=== PATIENT | female | born 1940 | race Caucasian/White ===

== ENCOUNTER → 2017-01-13 | Outpatient (CLI) | payer OTHER ==
[~2017-01-13] MED LIST: ASCO1CAP3 PO; CALC600T33 PO; CHOL1000 PO; DOCU100C PO; FSM70 PO; GABA-113 PO; GLUCTAB7 PO; HYDC25 PO; MULT-614 PO; POLY335019 PO; TYLER650 PO
--- NOTE | 2017-01-13 13:39 | MAMMOGRAPHY REPORT ---
BILATERAL DIGITAL SCREENING MAMMOGRAM TOMOSYNTHESIS WITH CAD: 01/13/2017 CLINICAL HISTORY: Routine screening. Patient has no complaints. TECHNIQUE: Breast tomosynthesis in addition to standard 2D mammography was performed. Current study was also evaluated with a Computer Aided Detection (CAD) system. COMPARISON: Comparison is made to exams dated: 01/13/2016 mammogram, 01/10/2015 mammogram, 11/10/2013 m ammogram, 11/09/2012 mammogram, 11/09/2011 mammogram, and 11/05/2010 mammogram - [facility] er. BREAST COMPOSITION: The tissue of both breasts is heterogeneously dense, which may obscure small mas ses. FINDINGS: No suspicious masses, calcifications, or areas of architectural distortion are noted in ei ther breast. There has been no significant interval change compared to prior exams. Scattered bilater al benign-appearing calcifications are not significantly changed. A pacemaker obscures portions of t he left axilla. IMPRESSION: ACR BI-RADS CATEGORY 2: BENIGN There is no mammographic evidence of malignancy. A 1 year screening mammogram is recommended. The pa tient will receive written notification of the results. Approximately 10% of breast cancers are not detected with mammography. A negative mammographic report should not delay biopsy if a clinically suggestive mass is present. Denise Talbot M.D. /:01/13/2017 10:11:56 Extractor Loader And Unloader: Cee Staples RT(R)(M), [facility] letter sent: Normal 1/2 BI-RADS Code: ACR BI-RADS Category 2: Benign
== END | disposition home or self-care (01) ==
LOC: C.MAMM 09:35
PROVIDERS: ATTEND Obstetrics & Gynecology
DX: Z12.31 Encounter for screening mammogram for malignant neoplasm of breast (principal)

== ENCOUNTER 2023-08-10 07:31 | Observation (INO) ==
--- NOTE | 2023-07-20 11:41 | PAT Medication Instructions ---
Medication Instructions Date of Service July 20, 2023 Home Medications Medication Instructions Recorded hydrochlorothiazide 25 mg tablet 25 mg PO QAM #90 tabs 04/18/19 acetaminophen 325 mg tablet 325 mg PO UD PRN ascorbic acid (vitamin C) 500 mg tablet (Vitamin C) 500 mg PO QAM calcium carbonate 600 mg-vitamin D3 5 mcg (200 unit) capsule (Calcium 600 + D(3)) 1 tab PO QAM cholecalciferol (vitamin D3) 25 mcg (1,000 unit) capsule (Vitamin D3) 1,000 unit PO QPM docusate sodium 250 mg capsule (Stool Softener) 250 mg PO BID multivitamin (Multiple Vitamins tablet) 1 tab PO QAM polyethylene glycol 3350 17 gram/dose oral powder (Miralax) 1 dose PO QAM hydrochlorothiazide 25 mg tablet 25 mg PO QAM gabapentin 300 mg capsule (Neurontin) 300 mg PO QPM glucosamine sulf dipot chlr,msm,chond 550 mg-C 30 mg-richardson 1 mg capsule (Glucosamine Chondroitin) 1 cap PO BID latanoprost 0.005 % eye drops 1 drp ophthalmic (eye) PM peg 400-propylene glycol (PF) 0.4 %-0.3 % eye drops in a dropperette (Systane (PF)) 1 drp ophthalmic (eye) QID vit C 250 mg-vit E 90 mg-zinc 40 mg-copper 1 [id number] capsule (PreserVision AREDS-2) 1 tab PO BID Continue as directed acetaminophen 325 mg tablet 325 mg PO UD PRN(if needed) STOP taking 2 weeks before surgery (or as soon as possible if surgery is within 2 weeks) glucosamine sulf dipot chlr,msm,chond 550 mg-C 30 mg-richardson 1 mg capsule (Glucosamine Chondroitin) 1 cap PO BID vit C 250 mg-vit E 90 mg-zinc 40 mg-copper 1 [id number] capsule (PreserVision AREDS-2) 1 tab PO BID DO NOT take the morning of surgery ascorbic acid (vitamin C) 500 mg tablet (Vitamin C) 500 mg PO QAM calcium carbonate 600 mg-vitamin D3 5 mcg (200 unit) capsule (Calcium 600 + D(3)) 1 tab PO QAM docusate sodium 250 mg capsule (Stool Softener) 250 mg PO BID multivitamin (Multiple Vitamins tablet) 1 tab PO QAM polyethylene glycol 3350 17 gram/dose oral powder (Miralax) 1 dose PO QAM hydrochlorothiazide 25 mg tablet 25 mg PO QAM Take morning of surgery With a small sip of water, OTHERWISE NOTHING TO EAT OR DRINK AFTER MIDNIGHT: peg 400-propylene glycol (PF) 0.4 %-0.3 % eye drops in a dropperette (Systane (PF)) 1 drp ophthalmic (eye) QID Take evening before surgery cholecalciferol (vitamin D3) 25 mcg (1,000 unit) capsule (Vitamin D3) 1,000 unit PO QPM docusate sodium 250 mg capsule (Stool Softener) 250 mg PO BID gabapentin 300 mg capsule (Neurontin) 300 mg PO QPM latanoprost 0.005 % eye drops 1 drp ophthalmic (eye) PM peg 400-propylene glycol (PF) 0.4 %-0.3 % eye drops in a dropperette (Systane (PF)) 1 drp ophthalmic (eye) QID Other Notes If you have any questions please call us at [phone] or [phone] or [phone] or [phone]
--- NOTE | 2023-07-21 15:00 | Anesthesiology Consultation ---
Date of Service July 21, 2023 Assessment & Plan (1) Encounter for pre-operative examination: - Infectious disease screening: Per assessment on 07/21/23: No known infectious disease contacts or current infectious disease symptoms. No noted recent Covid positive test result. - Outpatient joint assessment: Pt currently scheduled for inpatient pathway. If surgeon requests review for outpatient joint pathway, patient is not recommended candidate for outpatient joint program from anesthesia standpoint based on available information. - Cardiology visit (07/19/23): "The patient is stable from cardiovascular standpoint. She demonstrates excellent control of her blood pressure at home. Cholesterol values are also acceptable. She demonstrates excellent functional status without cardiac symptoms. Therefore, she is acceptable cardiac risk to undergo knee replacement surgery without further testing." Chart Review Chart Review: Acceptable Risk for Surgery and Patient seen in Pre Admission Testing Teaching & Discussion Pre-Anesthesia Teaching/Discussion Notes: Instructed NPO after midnight before surgery,except medications with 15 cc of water. Medication instructions provided according to the PAT guidelines. History Surgery Operation Date: 08/10/23 12:20 Proposed Procedures p Right Total Knee Arthroplasty - Elvin Jeison Stephen MD Height/Weight Height: 5 ft 1 in Weight: 57.2 kg Allergies Allergy/AdvReac Type Severity Reaction Status Date / Time meloxicam Allergy Intermediate Swelling- Verified 07/21/23 14:58 stomach Medications Home Medications Medication Instructions Recorded Confirmed Last Taken acetaminophen 325 mg tablet 325 mg PO UD PRN Pain 01/11/18 07/20/23 Unknown ascorbic acid (vitamin C) 500 mg 500 mg PO QAM 01/11/18 07/20/23 04/26/18 tablet (Vitamin C) calcium carbonate 600 mg-vitamin 1 tab PO QAM 01/11/18 07/20/23 04/26/18 D3 5 mcg (200 unit) capsule (Calcium 600 + D(3)) cholecalciferol (vitamin D3) 25 1,000 unit PO QPM 01/11/18 07/20/23 04/25/18 mcg (1,000 unit) capsule (Vitamin D3) docusate sodium 250 mg capsule 250 mg PO BID 01/11/18 07/20/23 04/26/18 (Stool Softener) multivitamin (Multiple Vitamins 1 tab PO QAM 01/11/18 07/20/23 04/26/18 tablet) polyethylene glycol 3350 17 1 dose PO QAM 01/11/18 07/20/23 04/26/18 gram/dose oral powder (Miralax) hydrochlorothiazide 25 mg tablet 25 mg PO QAM #90 tabs 04/18/19 07/20/23 Unknown gabapentin 300 mg capsule 300 mg PO QPM 08/15/20 07/20/23 Unknown (Neurontin) glucosamine sulf dipot 1 cap PO BID 07/20/23 07/20/23 Unknown chlr,msm,chond 550 mg-C 30 mg-richardson 1 mg capsule (Glucosamine Chondroitin) latanoprost 0.005 % eye drops 1 drp ophthalmic (eye) PM 07/20/23 07/20/23 Unknown peg 400-propylene glycol (PF) 0.4 1 drp ophthalmic (eye) QID 07/20/23 07/20/23 Unknown %-0.3 % eye drops in a dropperette (Systane (PF)) vit C 250 mg-vit E 90 mg-zinc 40 1 tab PO BID 07/20/23 07/20/23 Unknown mg-copper 1 [id number] capsule (PreserVision AREDS-2) Past Medical History Medical History Glaucoma of both eyes History of COVID-19 04/2023- mild symptoms, resolved Hypertension Osteoarthritis Pacemaker Sick sinus syndrome Dual chamber implanted 2005, replaced [address] Irizarry Exercise / Class Metabolic Activity III < 4 Walking/Shop/Light housework Past Family History Family History Other No family history of adverse response to anesthesia Past Surgical History Surgical History History of ear surgery left ear History of lumbar fusion History of permanent cardiac pacemaker placement Implanted 2005 [employer], replaced 2014 History of right cataract extraction History of right inguinal hernia repair History of tooth extraction Hx laparoscopic cholecystectomy Hx of colonoscopy Hx of hysterectomy Past Anesthesia History No Hx of Anesthesia Complications and No Family Hx of Anesthesia Complications History of PONV No Hx of PONV and No Hx of Motion Sickness Social History Smoking Status: Never smoker Do You Dip or Chew Tobacco: No Hx Alcohol Use: No Hx Substance Use: No substance use type: does not use Review of Systems Patient denies chest pain, shortness of breath, fever, chills, cough, wheezing, palpitations. Physical Exam Vital Signs BP 146/83 P 74 TEMP 98.0 SP02 95%RA RESP 18 Physical Full cervical extension range of motion. Full TMJ range of motion. TMD 3 finger breaths Mallampati Score 1 Dentition: full upper, partial lower Lungs: clear throughout to auscultation Cardiac: regular rate and rhythm, no murmurs noted Spine: normal Carotid arteries: negative bruit Extremities: no LE edema Lab Results Anesthesia Preop Results Results Anesthesia Widget: WBC 5.43 K/ul (4.8-10.8) 07/21/23 Hgb 13.6 g/dl (12.0-16.0) 07/21/23 Hct 40.5 % (37.0-47.0) 07/21/23 Plt 195 K/uL (130-400) 07/21/23 Na 135 mmol/L (136-145) L 07/21/23 K 4.0 mmol/L (3.5-5.1) 07/21/23 Cl 97 mmol/L (98-107) L 07/21/23 CO2 31 mmol/L (21-32) 07/21/23 BUN 26 mg/dl (6-23) H 07/21/23 Creat 0.76 mg/dl (0.6-1.2) 07/21/23 Glucose Level 95 mg/dl (70-99(Fasting)) 07/21/23 PT 10.5 Seconds (9.0-12.0) 07/21/23 PTT 28 Seconds (21-31) 07/21/23 INR 1.0 (0.9-1.1) 07/21/23 Urine Color Yellow 07/21/23 Urine Appearance Clear (Clear) 07/21/23 Urine pH 5.5 (4.5-7.5) 07/21/23 Urine Specific Jackson 1.016 (1.000-1.030) 07/21/23 Urine Protein Negative (Negative) 07/21/23 Urine Glucose (UA) Negative (Negative) 07/21/23 Urine Ketones Negative (Negative) 07/21/23 Urine Blood Negative (Negative) 07/21/23 Urine Nitrite Negative (Negative) 07/21/23 Urine Bilirubin Negative (Negative) 07/21/23 Urine Urobilinogen Negative (Negative) 07/21/23 Urine Leukocyte Esterase Negative (Negative) 07/21/23 Blood Type B Positive 07/21/23 Antibody Screen NEGATIVE 07/21/23 Testing Electrocardiogram Date: 07/21/23 SR with PACs at 69bpm. "Otherwise normal ECG" Chest X-Ray Date: 07/21/23 FINDINGS: Postoperative findings within the spine, cholecystectomy clips and a left subclavian pacer are incidentally noted. There is a moderate sized hiatal hernia. Cardiac size is normal. Mediastinal contours are stable. There is no pneumothorax or pleural effusion. There is no consolidation or evidence for pulmonary edema. IMPRESSION: No acute cardiopulmonary findings. No change in appearance of the chest. Other Testing Pacer check Date: 04/23/23 AP 38%. [employer] < 0.1%. Battery longevity 6 years. More AAIR <=> DDDR.
[~2023-08-10 07:31] MED LIST changes: -ASCO1CAP3 PO; +BUPIVACAINE 0.5 % 5 MG/1 ML PF 10ML VIAL ONE; -CALC600T33 PO; -CHOL1000 PO; -DOCU100C PO; -FSM70 PO; -GABA-113 PO; -GLUCTAB7 PO; -HYDC25 PO; -MULT-614 PO; -POLY335019 PO; +ROPIVACAINE 0.5% 5 MG/ML 30 ML VIAL ONE; -TYLER650 PO
[2023-08-10] MEDS ORDERED: PROPOFOL IV EMULSION 10 MG/ML 20 ML VIAL IV ONE (07:47)
[2023-08-10] MEDS ORDERED: fentaNYL citrate PF 100 MCG/2 ML VIAL ONE (07:47)
[2023-08-10] MEDS: ACETAMINOPHEN 500 MG TAB PO SCH ×2 (07:59→15:18)
[2023-08-10] MEDS: Scopolamine 1 MG TDSY TD SCH (08:00)
[2023-08-10] MEDS: CeleBREX 200 MG CAP PO SCH (08:00)
[2023-08-10] MEDS: LR 60ML/HR IV SCH (08:00)
[2023-08-10] MEDS: LR 500ML BOLUS, THEN 15ML/HR IV SCH (08:05)
[2023-08-10] MEDS ORDERED: DexMEDEtomidine HCL IV 100 MCG/ML VIAL IV ONE (08:20)
--- NOTE | 2023-08-10 08:33 | History & Physical Bridge Note ---
Date of Service August 10, 2023 History & Physical Bridge Note I have examined the patient, reviewed the History & Physical and in the interval since the performance of the History & Physical I have noted the following changes of clinical significance: no changes noted
[2023-08-10] MEDS ORDERED: ATROPINE SULFATE 0.1 MG/ML 10ML SYR IV PRN (08:35)
[2023-08-10] MEDS ORDERED: ONDANSETRON INJ 2 MG/ML 2 ML VIAL IV PRN ×2 (08:35→13:46)
[2023-08-10] MEDS ORDERED: fentaNYL citrate PF 100 MCG/2 ML VIAL IV PRN (08:35)
[2023-08-10] MEDS ORDERED: ePHEDrine sulfate 50 MG/ML AMP IV PRN (08:35)
[2023-08-10] MEDS: TRANEXAMIC ACID 1,000 MG **IV Pre-op IV SCH (08:40)
[2023-08-10] MEDS: ceFAZolin 2000MG 2,000 MG/15 ML SYR IV SCH (09:53)
[2023-08-10] MEDS: ROPIV 0.5% 246mg, Ketorolac 30mg, EPINEPHrine 0.5mg in NSS INFIL SCH (09:54)
[2023-08-10] MEDS: ORTHO JOINT ANESTHETIC ONE (09:55)
[2023-08-10] MEDS: TRANEXAMIC ACID 1,000 MG **IV Intra-op IV SCH (10:45)
--- NOTE | 2023-08-10 11:11 | Operative Report ---
Post Operative Report Pre & Post Diagnosis Operation Date: 08/10/23 09:20 Pre-Op Diagnosis: Osteoarthritis Knee Right Post-Op Diagnosis: Osteoarthritis Knee Right I identified the patient and participated in the time-out.: Yes Procedure Operation Date: 08/10/23 09:20 Actual Procedures p Right Total knee replacement, imageless computer assisted navigation (Right) - Elvin Stephen MD Surgeon Elvin Stephen MD Fraud Analyst Shiloh Strickland PA-C (No fellow avail) Estimated Blood Loss 50 Findings See Below Examined Under Anesthesia: ROM -- There was 5 degrees to 130 degrees of flexion Ligamentous examination -- revealed Armando with 5 mm anterior translation and soft endpoint, varus stress at 5 > 30 degrees with opening; stable posterior drawer and valgus stress at 5 and 30 degrees. [place] Grade IV changes of Medial compartment, patellofemoral compartment and grade III changes LFC. Marginal osteophytes and synovitis. Fluids 1400 cc Specimens Right knee contents Anesthesia Type MAC Spinal Regional Complications none Indications This is a 83-year-old female who has clinical and radiographic findings consistent with osteoarthritis of the a right knee. I recommended that a right total knee replacement be performed. The patient understands the risks of surgery, which include but not limited to: bleeding, infection, re-operation, damage to nerves and arteries, continued knee pain, knee stiffness, DVT, and . The patient understands all of these instructions and explanations, all of his questions have been satisfactorily addressed and the patient has elected to proceed. Informed consent was signed. Description of Procedure IMPLANTS: 1. Femur: Triathlon #4 Right PS. 2. Tibia: Triathlon #3 [place] with 12 x 50 mm stem. 3. Insert: Triathlon #3 x 16 mm PS X3 poly. 4. Patella: Triathlon A29 x 9 mm X3 poly. 5. Palacos cement. Shiloh Strickland PA-C is assisting with positioning, retracting, and closure due to fellow not available. Procedure: The patient was taken to the Operating Room and placed in the supine position after spinal and adductor canal nerve block was administered. My initials and a multidisciplinary time-out were used to identify the right leg as the correct operative limb. A tourniquet was placed high in the thigh. Prior to the incision, 2 grams of intravenous Ancef were given. The right leg was then prepped and draped in a standard sterile fashion. An Esmarch was used to exsanguinate the leg and the tourniquet was inflated to 250 mmHg. The planned mid-line 20 cm incision was created exposing the extensor mechanism. The medial parapatellar arthrotomy was made and the patella was everted. The patella was addressed first. It was prepared by reaming from 23 mm down to 14 mm. An A29 button was found to fit best. The peg holes were made in the standard fashion. The femur was addressed next and using computer assisted OrthoAlign with 3 degrees of flexion and 0 degrees of valgus, removing 10 mm in the standard fashion for the distal cut. The cut was made and the 4-in-1 cutting block for a size 4 femur was placed. These cuts and the cuts to place the box were made in the standard fashion. The distal peg were created after testing knee stability with trial components in and using the trial femur as a guide in the standard fashion as her bone was soft. Our attention was then drawn to the tibia cut with using imageless computer assisted OrthoAlign, taking 2 mm from the medial low side. There was sufficient extension and flexion gap to fit a 16 mm spacer. A #3 Tibial baseplate fit well. A trial with a 16 mm spacer showed excellent stability in both flexion and extension, with good ligament balance, and thumbs free patellar tracking. Range of motion of 0-130 degrees. The tibial baseplate was prepped for the keel and stem. A stem was used due to some areas of soft bone, to avoid subsidence. All components were removed. 90 ml of total knee cocktail were injected into the soft tissues and periosteum. All surfaces were copiously irrigated prior to placement of the components. The femoral component followed by Tibial baseplate were cemented in place and a 16mm trial placed. Next, the patellar button was placed using the same cement. Once the cement had cured, the range of motion and stability were unchanged. The 16 mm X3 poly was placed. Again, the range of motion and stability were unchanged. The tourniquet was deflated. Hemostasis was obtained. The extensor mechanism was closed with 1-0 Vicryl and 0 Stratafix with the knee bent approximately 60 degrees in a standard fashion. The peritenon and deep fascia was closed with 2-0 Vicryl. The subcutaneous layer was closed with 3-0 Vicryl. The skin was closed with Zipline and shield. The limb was cleaned and dried. 4x4 dressing was placed over top followed by ABDs, sterile Webril, and a foot to thigh Santi bandage. The patient was then transferred to the Recovery Room in stable condition. The sponge and needle counts were correct. POST-OP INSTRUCTIONS: The patient will be WBAT. The patient will be admitted to the hospital. Complete 24-hour course antibiotics. Labs will be obtained during the stay. DVT prophylaxis will included aspirin for 6 weeks, TEDs, and mechanical foot pumps. The dressing will be changed postop day #2-3 and covered with a Silverlon dressing. I attest to the content of the Intraoperative Record and any orders documented therein. Any exceptions are noted below.
--- NOTE | 2023-08-10 11:11 | Post Operative Brief Note ---
Immediate Post Op Note v1 Date of Surgery August 10, 2023 Pre & Post Diagnosis Operation Date: 08/10/23 09:20 Pre-Op Diagnosis: Osteoarthritis Knee Right Post-Op Diagnosis: Osteoarthritis Knee Right I identified the patient and participated in the time-out.: Yes Procedure Operation Date: 08/10/23 09:20 Actual Procedures p Right Total Knee Arthroplasty(Right) - Elvin Stephen MD Surgeon Elvin Stephen MD Safety And Health Manager Shiloh Strickland PA-C (No fellow avail) Estimated Blood Loss 50 Findings Consistent with Post-Op Diagnosis Fluids 1400 cc Specimens Right knee contents Anesthesia Type MAC Spinal Regional Complications none
--- NOTE | 2023-08-10 11:26 | Operative Report ---
Post Operative Report Pre & Post Diagnosis Operation Date: 08/10/23 09:20 Pre-Op Diagnosis: Osteoarthritis Knee Right Post-Op Diagnosis: Osteoarthritis Knee Right I identified the patient and participated in the time-out.: Yes Procedure Operation Date: 08/10/23 09:20 Actual Procedures p Right Total Knee Arthroplasty(Right) - Elvin Stephen MD Surgeon Elvin Stephen MD Sonar Subsystem Equipment Operator Shiloh Strickland PA-C (No fellow avail) Estimated Blood Loss 50 Findings Consistent with Post-Op Diagnosis Specimens bone and soft tissue Anesthesia Type MAC Spinal Regional Description of Procedure Patient was taken to the operating room and placed under IV sedation with spinal anesthesia and peripheral nerve block. Time out was performed. She was given 2 g of IV Ancef for surgical prophylaxis. She was given 1 g of IV TXA preoperatively for bleeding prophylaxis. She was prepped and draped in routine sterile fashion. Is present during the entire case and assisted with positioning, tissue retraction, trialing of implants, implantation of hardware, hemostasis, cementing, closure and dressings. Please see Dr. Stephen's operative report for further details regarding today's procedure. Patient was awakened and transferred to the recovery room in stable condition. I attest to the content of the Intraoperative Record and any orders documented therein. Any exceptions are noted below.
--- NOTE | 2023-08-10 11:42 | Anesthesiology Progress Note ---
Date of Service August 10, 2023 Anesthesia Post Procedure Vital Signs Vital Signs: Temp Pulse Pulse Resp BP Pulse Ox O2 Del Method 08/10/23 11:40 60 12 118/63 100 Oxymask 08/10/23 11:30 60 12 116/60 100 Oxymask 08/10/23 11:20 36.3 C L 68 16 129/65 99 Oxymask 08/10/23 07:58 36.9 C 74 20 167/86 H 97 Room Air O2 Flow Rate 08/10/23 11:40 4 08/10/23 11:30 4 08/10/23 11:20 6 08/10/23 07:58 Notes Mental Status: alert / awake / arousable Patient Amnestic to Procedure: Yes Nausea / Vomiting: adequately controlled Pain: adequately controlled Airway Patency, RR, SpO2: stable & adequate BP & HR: stable & adequate Hydration State: stable & adequate Neuraxial Anesthesia: was administered Anesthetic Complications: no major complications apparent
--- NOTE | 2023-08-10 12:03 | XRay Report ---
XR knee RT 1 or 2V routine CLINICAL HISTORY: Surgical Post Op TECHNIQUE: 2 views of the right knee were obtained. Comparison: Comparison is made to leg length radiographs 07/07/2023 FINDINGS: Patient is status post total knee arthroplasty with expected postsurgical changes including soft tiss ue swelling and subcutaneous emphysema. No periarticular lucency or hardware fracture is seen. IMPRESSION: Expected postoperative appearance status post placement of total knee arthroplasty. ACT 112: Negative or not required by law. Electronically signed by: Manjit Piper M.D. 08/10/2023 12:01 PM
[2023-08-10] MEDS ORDERED: MAGNESIUM HYDROXIDE SUSP 30 ML UDC PO PRN (13:46)
[2023-08-10] MEDS ORDERED: METOCLOPRAMIDE HCL INJ 5 MG/ML 2 ML VIAL IV PRN (13:46)
[2023-08-10] MEDS ORDERED: oxyCODONE HCL IR 5 MG TAB (IMMEDIATE RELEASE) PO PRN (13:46)
[2023-08-10] MEDS ORDERED: NALOXONE HCL 0.4 MG/1 ML VIAL/CARP IV PRN (13:46)
[2023-08-10] MEDS ORDERED: HYDROmorphone INJ 1 MG/ML SYRINGE IV PRN (13:46)
[2023-08-10] MEDS ORDERED: HYDROmorphone INJ 0.5 MG/0.5 ML SYR IV PRN (13:46)
[2023-08-10] MEDS ORDERED: bisacodyL 10 MG SUPP PR PRN (13:46)
--- NOTE | 2023-08-10 14:46 | Orthopedic Progress Note ---
Date of Service August 10, 2023 Assessment & Plan (1) S/P total knee arthroplasty: Plan: POD 0 - Right total knee arthroplasty with Dr. Stephen Home medications were resumed. DVT prophylaxis: Aspirin 81 mg twice daily for 4 weeks after surgery, KENNETH stockings and AV impulse boots while inpatient. PT and OT to start tomorrow. May be out of bed, weight-bear as tolerated with the assistance of a walker. Ice and elevation as needed for pain and swelling. Hospitalist consult obtained for postoperative medical management. Home medications have been continued. Pain medication as prescribed. Bowel regimen prescribed. Antibiotics: Ancef 1 g to continue for 24 hours postoperatively. Postoperative x-rays reviewed with patient and her daughter. Case management for disposition. Plans to go home with home health possibly tomorrow. Mild tingling and weakness right foot as expected status post spinal. Will discuss findings with Dr. Stephen. Will reeval in AM. Admission and Anticipated Discharge Date Admission Date: August 10, 2023 Subjective Patient resting in bed. Doing well. Pleasant and smiling. Daughter at bedside. No complaints of pain in right lower extremity today. Denies any lightheadedness, dizziness, chest pains, shortness of breath, postoperative nausea or vomiting. She states she has not had any meals but has tolerated crackers and applesauce. Physical Exam Musculoskeletal: Dressings in place right lower extremity. Dressings are clean, dry and intact. Ice in place of right knee. She has mild weakness with great toe dorsiflexion and eversion of the right foot. She can plantarflex and invert with normal strength. Mild tingling sensation in the tips of her toes. Capillary fill is brisk. Dorsalis pedis pulses 1+. Foot is warm. Calf is supple and nontender. Tolerates gentle logrolling of the right hip. Results & Data Vital Signs (Past 12 Hours) Vital Signs Temp Pulse Pulse Resp BP Pulse Ox O2 Del Method 08/10/23 14:40 36.6 C 68 16 138/74 96 Room Air 08/10/23 13:40 36.5 C 81 16 142/69 H 100 Room Air 08/10/23 13:30 78 16 130/70 99 Room Air 08/10/23 13:15 76 12 122/64 99 Room Air 08/10/23 13:00 67 12 129/69 99 Room Air 08/10/23 12:45 85 16 137/80 98 Room Air 08/10/23 12:40 76 16 132/67 99 Room Air 08/10/23 12:30 67 12 130/69 98 Room Air 08/10/23 12:20 61 12 117/61 96 Room Air 08/10/23 12:10 36.4 C L 61 12 119/59 L 97 Room Air 08/10/23 12:00 62 12 120/60 97 Room Air 08/10/23 11:50 77 18 124/63 98 Room Air 08/10/23 11:40 60 12 118/63 100 Oxymask 08/10/23 11:30 60 12 116/60 100 Oxymask 08/10/23 11:20 36.3 C L 68 16 129/65 99 Oxymask 08/10/23 07:58 36.9 C 74 20 167/86 H 97 Room Air O2 Flow Rate 08/10/23 14:40 08/10/23 13:40 08/10/23 13:30 08/10/23 13:15 08/10/23 13:00 08/10/23 12:45 08/10/23 12:40 08/10/23 12:30 08/10/23 12:20 08/10/23 12:10 08/10/23 12:00 08/10/23 11:50 08/10/23 11:40 4 08/10/23 11:30 4 08/10/23 11:20 6 08/10/23 07:58 Diagnostic Findings XR knee RT 1 or 2V routine CLINICAL HISTORY: Surgical Post Op TECHNIQUE: 2 views of the right knee were obtained. Comparison: Comparison is made to leg length radiographs 07/07/2023 FINDINGS: Patient is status post total knee arthroplasty with expected postsurgical changes including soft tissue swelling and subcutaneous emphysema. No periarticular lucency or hardware fracture is seen. IMPRESSION: Expected postoperative appearance status post placement of total knee arthroplasty.
[2023-08-10] MEDS: SODIUM CHLORIDE 0.9% 1,000 ML IV SCH (15:19)
[2023-08-10] MEDS: Scopolamine CHECK PATCH PLACEMENT SCH (15:20)
[2023-08-10] MEDS: ARTIFICIAL TEARS OP SCH (17:07)
[2023-08-10] MEDS: ceFAZolin 1000MG 1,000 MG/7.5 ML SYR IV SCH (17:07)
[2023-08-10] MEDS: FERROUS GLUCONATE 324 MG TAB PO SCH (18:08)
--- NOTE | 2023-08-10 19:55 | Consultation ---
Date of Consultation August 10, 2023 Assessment & Plan (1) S/P total knee arthroplasty: Right. By Dr Stephen, [facility]. EBL 50cc per the op note. Doing well in the immediate post-op period. DVT proph - asa 81mg BID. PT, OT evals requested by primary ortho team. (2) Hypertension: In anticipation of blood loss from her surgery, etc will hold her AM HCTZ tomorrow. Check BMP. If BMP is stable and BPs are high then resume HCTZ at that time. (3) History of permanent cardiac pacemaker placement: Follows with Dr Ronnell Irizarry, [facility] Card[facility] Saw Dr Irizarry in July 2023 Per his office note - pacemaker interrogation performed in September 2022 - normal functioning and battery longevity of 7 years. A home check back in April 2023 noted proper functioning with a battery longevity estimated at 6 years. He wanted to perform repeat interrogation in July but the battery for the interrogation machine was not charged; his office note indicates he wishes to perform interrogation while here. (4) Hypercholesterolemia: Not on dedicated medication at this time (5) Glaucoma of both eyes: Cont all home eye drops for such (6) DVT prophylaxis: aspirin 81mg BID Plan Thank you for this consult; we will follow with you. History of Present Illness Requesting Physician: Elvin Stephen MD Reason for Consultation: post-op medical management Attending Physician: Elvin Stephen MD History of Present Illness Pleasant 83yo female with history of HTN and Sick Sinus Syndrome s/p permanent pacemaker placement in 2005 presented today for elective right TKR by Dr Stephen. I saw her post-op on the orthopedic floor. She was resting comfortably. She denies any chest pain, dyspnea, nausea, emesis, or abdominal pain. Minimal right knee pain. She ate dinner without incident. She is pleased by how things have gone thus far. Denies any recent illnesses preceding this admission. Allergies Allergy/AdvReac Type Severity Reaction Status Date / Time meloxicam Allergy Intermediate Swelling- Verified 08/10/23 08:04 stomach Home Medications Medication Instructions Recorded Confirmed Type acetaminophen 325 mg tablet 325 mg PO UD PRN Pain 01/11/18 08/10/23 History ascorbic acid (vitamin C) 500 mg 500 mg PO QAM 01/11/18 08/10/23 History tablet (Vitamin C) calcium carbonate 600 mg-vitamin 1 tab PO QAM 01/11/18 08/10/23 History D3 5 mcg (200 unit) capsule (Calcium 600 + D(3)) cholecalciferol (vitamin D3) 25 1,000 unit PO QPM 01/11/18 08/10/23 History mcg (1,000 unit) capsule (Vitamin D3) docusate sodium 250 mg capsule 250 mg PO BID 01/11/18 08/10/23 History (Stool Softener) multivitamin (Multiple Vitamins 1 tab PO QAM 01/11/18 08/10/23 History tablet) polyethylene glycol 3350 17 1 dose PO QAM 01/11/18 08/10/23 History gram/dose oral powder (Miralax) hydrochlorothiazide 25 mg tablet 25 mg PO QAM #90 tabs 04/18/19 08/10/23 Rx gabapentin 300 mg capsule 300 mg PO QPM 08/15/20 08/10/23 History (Neurontin) glucosamine sulf dipot 1 cap PO BID 07/20/23 08/10/23 History chlr,msm,chond 550 mg-C 30 mg-richardson 1 mg capsule (Glucosamine Chondroitin) latanoprost 0.005 % eye drops 1 drp ophthalmic (eye) PM 07/20/23 08/10/23 History peg 400-propylene glycol (PF) 0.4 1 drp ophthalmic (eye) QID 07/20/23 08/10/23 History %-0.3 % eye drops in a dropperette (Systane (PF)) vit C 250 mg-vit E 90 mg-zinc 40 1 tab PO BID 07/20/23 08/10/23 History mg-copper 1 [id number] capsule (PreserVision AREDS-2) Patient History Medical History (Updated 08/11/23 @ 06:02 by Shaq Bland MD) Pacemaker History of COVID-19 04/2023- mild symptoms, resolved Glaucoma of both eyes Sick sinus syndrome Dual chamber implanted 2005, replaced [address] Irizarry Osteoarthritis Hypertension Surgical History History of tooth extraction History of right inguinal hernia repair History of right cataract extraction History of ear surgery left ear Hx of colonoscopy Hx of hysterectomy Hx laparoscopic cholecystectomy History of lumbar fusion History of permanent cardiac pacemaker placement Implanted 2005 [employer], replaced 2014 Family History Father Coronary heart disease Mother Dementia Other No family history of adverse response to anesthesia Social History Smoking Status: Never smoker Second Hand Exposure: No; Do You Dip or Chew Tobacco: No; Hx Alcohol Use: No Hx Substance Use: No Preferred Language: [place] Communication Ability: Effective Visual Impairment: No Limitations Sisal Picker Required: No Beliefs That Will Affect Care: None marital status: Current Living Situation: Spouse current occupational status: retired current occupation: worked in a [employer] How many Children do You have: 2 Feels Safe at Home: Yes Assistive Devices: Denture - Upper, Denture - Lower, Glasses and Hearing Aid - Bilateral Review of Systems Review of Systems: gen - no recent fevers or weight change eyes - no recent visual loss or change HENT - no URI symptoms; no dysphagia CV - no chest pain; +LE edema - chronic pulm - no dyspnea or ANDRES GI - no abd pain; no N/V/D - no dysuria musculo - chronic left hip pain; mild chronic pain L knee skin - no rash neuro - no headaches endo - no diabetes Physical Exam Physical Exam: gen - pleasant, NAD, laying in bed watching TV eyes - PERRL; lens implants b/l HENT - MMM, no lesions neck - supple, no JVD heart - RRR, s1 s2, no murmur lungs - CTA b/l abd - soft NT ND BS+ ext - 1+ edema b/l, worse on right; pulses feet 2+ b/l musculo - right knee with TEVIN wrap in place and ice pack psych - a/o x 3 neuro - strength 5/5 x 4 exts Results & Data Vital Signs (Past 12 Hours) Vital Signs Temp Pulse Pulse Resp BP BP Pulse Ox 08/10/23 19:14 36.7 C 66 16 164/78 H 95 08/10/23 15:43 36.7 C 68 18 134/73 95 08/10/23 14:40 36.6 C 68 16 138/74 96 08/10/23 13:40 36.5 C 81 16 142/69 H 100 08/10/23 13:30 78 16 130/70 99 08/10/23 13:15 76 12 122/64 99 08/10/23 13:00 67 12 129/69 99 08/10/23 12:45 85 16 137/80 98 08/10/23 12:40 76 16 132/67 99 08/10/23 12:30 67 12 130/69 98 08/10/23 12:20 61 12 117/61 96 08/10/23 12:10 36.4 C L 61 12 119/59 L 97 08/10/23 12:00 62 12 120/60 97 08/10/23 11:50 77 18 124/63 98 08/10/23 11:40 60 12 118/63 100 08/10/23 11:30 60 12 116/60 100 08/10/23 11:20 36.3 C L 68 16 129/65 99 08/10/23 07:58 36.9 C 74 20 167/86 H 97 O2 Del Method O2 Flow Rate 08/10/23 19:14 Room Air 08/10/23 15:43 Room Air 08/10/23 14:40 Room Air 08/10/23 13:40 Room Air 08/10/23 13:30 Room Air 08/10/23 13:15 Room Air 08/10/23 13:00 Room Air 08/10/23 12:45 Room Air 08/10/23 12:40 Room Air 08/10/23 12:30 Room Air 08/10/23 12:20 Room Air 08/10/23 12:10 Room Air 08/10/23 12:00 Room Air 08/10/23 11:50 Room Air 08/10/23 11:40 Oxymask 4 08/10/23 11:30 Oxymask 4 08/10/23 11:20 Oxymask 6 08/10/23 07:58 Room Air Laboratory Results pre-op labs 07/2023 - CBC, BMP, u/a - all wnl EKG 07/2023 - NSR with PACs PG Care Time/CCT Total # of Minutes Spent Total Time Spent with Patient: Total time spent is greater than 50% in coordination of care (as documented) at patient's floor/unit and/or counseling patient: Coding Level of Care Code 20391 INT INP/OBS CARE /40MIN Diagnoses S/P total knee arthroplasty Z96.659 Hypertension I10 History of permanent cardiac pacemaker placement Z95.0 Hypercholesterolemia E78.00 Glaucoma of both eyes H40.9 DVT prophylaxis Z29.9
[2023-08-10] MEDS ORDERED: CHOLECALCIFEROL 25 MCG (1000 UNITS) TAB PO SCH (21:00)
[2023-08-10] MEDS: LATANOPROST 0.005% OP SOLN 2.5 ML BTL OP SCH (21:00)
[2023-08-10] MEDS: CEROVITE ADV FORMULA TAB PO SCH (21:01)
[2023-08-10] MEDS: GABAPENTIN 300 MG CAP PO SCH (21:01)
[2023-08-10] MEDS: CHOLECALCIFEROL 25 MCG (1000 UNITS) TAB PO SCH (21:01)
[2023-08-10] MEDS: SENNA 8.6 MG TAB PO SCH (21:04)
[2023-08-10] MEDS: DOCUSATE SODIUM 100 MG CAP PO SCH (21:04)
--- NOTE | 2023-08-11 07:08 | Orthopedic Progress Note ---
Date of Service August 11, 2023 Assessment & Plan (1) S/P total knee arthroplasty: Plan: POD 1 - s/p Right total knee arthroplasty Doing as well as expected Home medications were resumed. DVT prophylaxis: Aspirin 81 mg twice daily for 6 weeks after surgery, KENNETH stoc kings and AV impulse boots while inpatient. PT and OT. May be out of bed, weight-bear as tolerated with the assistance of a walker. Ice and elevation as needed for pain and swelling. Appreciate Hospitalist input. Cardiology wanted her pacemaker interrogated while in the hospital Home medications have been continued. Pain medication as prescribed. Bowel regimen prescribed. Antibiotics: Ancef 1 g for 24 hours postoperatively, completed. Labs pending, will re-check Case management for disposition. Plans to go home with home health possibly tomorrow. Admission and Anticipated Discharge Date Admission Date: August 10, 2023 Subjective No complaints. Pain controlled with Tylenol. Physical Exam Physical Exam: Sitting comfortably in chair. RLE: Neurovascularly intact. Calf soft & non-tender. Dressing clean, dry, intact. Results & Data Vital Signs (Past 12 Hours) Vital Signs Temp Pulse Resp BP Pulse Ox O2 Del Method 08/11/23 03:15 37.0 C 66 16 126/74 94 Room Air 08/10/23 23:14 36.7 C 64 16 145/82 H 95 Room Air 08/10/23 19:14 36.7 C 66 16 164/78 H 95 Room Air Laboratory Results 08/11/23 Range/Units 06:52 WBC Pending RBC Pending Hgb Pending Hct Pending MCV Pending MCH Pending MCHC Pending Plt Count Pending Sodium Pending Potassium Pending Chloride Pending Carbon Dioxide Pending Anion Gap Pending BUN Pending Creatinine Pending Est Cr Clr Drug Dosing Pending Est GFR ( Amer) Pending Est GFR (Non-Af Amer) Pending BUN/Creatinine Ratio Pending Glucose Pending Calcium Pending
[2023-08-11 07:33] LABS: Hemoglobin 11.3 g/dl (12.0-16.0); Mean Corpuscular Hemoglobin 30.1 pg (25.0-34.0); Mean Corpuscular Hgb Conc 33.2 g/dL (32.0-36.0); Mean Corpuscular Volume 90.4 fL (80.0-100.0); Mean Platelet Volume 10.4 fL (9.4-12.4); Platelet Count 137 K/uL (130-400); RDW Coefficient of Variation 13.1 % (11.5-14.5); RDW Standard Deviation 43.6 fL (36.4-46.3); Red Blood Count 3.76 M/uL (4.20-5.40); White Blood Count 6.42 K/ul (4.8-10.8)
[2023-08-11 08:07] LABS: BUN Creatinine Ratio 27.9 (10-20); Calcium 7.9 mg/dl (8.6-10.3); Creatinine Clr Calc Pharmacy 46.5 ml/min; Est GFR (African American) 93.1 ml/min; Est GFR (Non-African American) 80.3 ml/min; Potassium 3.5 mmol/L (3.5-5.1)
[2023-08-11] MEDS: ASPIRIN 81 MG ECTAB PO SCH (08:08)
[2023-08-11] MEDS: ASCORBIC ACID 500 MG TAB PO SCH (08:09)
[2023-08-11] MEDS: CALCIUM 600MG + VIT D 400 IU TAB PO SCH (08:09)
[2023-08-11] MEDS: dexAMETHasone 4 MG TAB PO SCH (08:09)
[2023-08-11] MEDS: POLYETHYLENE (MIRALAX) 17 GM PACK PO SCH (08:10)
[2023-08-11] MEDS ORDERED: hydroCHLOROthiazide 25 MG TAB PO SCH (09:00)
[2023-08-11] MEDS ORDERED: MULTIVITAMIN TAB PO SCH (09:00)
--- NOTE | 2023-08-11 12:34 | Discharge Summary ---
Date of Service August 11, 2023 Discharge Data Consultations 08/10/23 13:46 Consult Hospitalist Routine Procedures Performed Operation Date: 08/10/23 09:20 Actual Procedures p Right Total Knee Arthroplasty(Right) - Elvin Stephen MD Hospital Course (1) S/P total knee arthroplasty: Patient was kept in observation at [facility] after undergoing elective right total knee arthroplasty with Dr. Stephen on August 10, 2023. Her surgery was performed with spinal anesthesia, peripheral nerve block and sedation. She tolerated the procedure well without any intraoperative or postoperative complications. She was given 2 g of IV Ancef preoperatively which was continued for 24 hours after surgery. She was given 1 g of IV TXA preoperatively and 1 g of IV TXA intraoperatively for bleeding prophylaxis. In the recovery room an x-ray of her right knee was obtained and showed a stable right knee prosthesis without any evidence of fracture. She was allowed out of bed, weight-bear as tolerated right lower extremity with the assistance of a walker. Physical therapy and Occupational Therapy consults were placed and to start on postoperative day 1. Hospitalist consult was placed as well for postoperative medical management. Her home medications were continued. She was started on aspirin 81 mg twice daily for DVT prophylaxis on postoperative day 1. She was given Tylenol, oxycodone and IV Dilaudid as needed for pain. She did well out of bed and her pain was well-controlled on oral pain medication. She was deemed safe for discharge to her home by physical therapy and Occupational Therapy. Cardiology was also consulted. She had her pacemaker interrogated prior to discharge per cardiology instructions. Her labs were within normal limits and as expected postoperatively. Discharge instructions were reviewed. Postoperative follow-up appointments were reviewed. All questions were answered. She was discharged to her home in stable condition on August 11, 2023 with home health services.
--- NOTE | 2023-08-11 21:58 | Communication Note ---
Date of Service: August 11, 2023 Late entry - I went to see Ms Diaz early this afternoon but she had already been d/c by the primary orthopedic team. Thus, no bedside visit was performed. Review of chart revealed stable AM labs today, stable BPs and vital signs overnight/this am, and she did have her pacemaker interrogation. Interrogation results will be sent to Dr Irizarry from [facility]. PT/OT notes reviewed - she did EXCELLENT with both services; cleared for home with home health services/therapy. Medically she appeared stable based on the above information. Shaq Bland MD
== END 2023-08-11 13:17 | disposition home health service (06) ==
LOC: 3E 07:31 → ASU 07:31

== ENCOUNTER 2024-04-06 07:21 | Inpatient (IN) ==
--- NOTE | 2024-02-23 16:38 | History & Physical Report ---
Date of Service February 23, 2024 Assessment & Plan (1) Osteoarthritis of left hip: Plan: PRE-OP Diagnosis: Left hip osteoarthritis Planned Procedure: Left total hip arthroplasty Plan: Patient is scheduled to undergo this procedure at the [facility] with Dr. David on March. Risks and complications of the procedure such as: Infection, bleeding, pain, scarring, nerve blood vessel damage, weakness, wound problems, stiffness, incomplete relief of symptoms, hardware failure, hardware loosening, wear, fracture, tendon or ligament injury, dislocation, leg length inequality, blood clots, Embolism, heart attack, stroke and were explained to the patient at her visit today. Informed consent to perform the procedure was obtained. Patient does not need to see PAT due to her recent total knee arthroplasty back in August, however she will need to obtain an updated CBC with differential, complete metabolic panel, PT/INR, blood type and screen, urinalysis, urine culture and sensitivity, and a nasal culture for MRSA. Her EKG is up-to-date. Patient will also need preoperative medical clearance from their primary care provider. She has an appointment on March 09. We also sent a clearance form to Dr. 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 Patient states that she plans on doing in-home physical therapy for the first 1 to 2 weeks postoperatively before transitioning to outpatient physical therapy at [facility] in [place]. Patient has a walker, raised toilet seat, shower chair. She will purchase a hip kit. During today's visit we reviewed the total hip packet as well as precautions. We discussed discharge planning from the hospital. I provided paperwork to obtain a handicap placard for their vehicle. We discussed lectures offered by [facility] in regards to joint replacement surgery via Zoom. I advised the patient that upon discharge from hospital we will prescribe a narcotic pain medication and anti-inflammatory. Patient will also be on an 81 mg aspirin twice daily for blood clot prevention. Patient will be scheduled for 2-week postoperative follow-up visit with myself on March 31. This chart was completed utilizing [employer] voice recognition software. Grammatical errors, random word insertions, pronoun errors, and in complete sentences are an occasional consequence of the system. Any questions or concerns about the content, text, or information contained within the body of this dictation should be addressed directly to the physician for clarification. History of Present Illness Chief Complaint: Chief Complaint: Left hip pain Primary Care Provider: Kathryn Martinez MD History of Present Illness (including history relevant to procedure): This 83-year-old female presents the clinic today for preoperative history and physical. Patient complains of eft hip pain which she started noticing after s he had right TKA in 08/2023. The pain sometimes travels into the thigh. She ambulates with a cane at home. No pain at rest, and no problems sleeping. She walks less than a block. 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 She has had injections in the past, but they did not help alleviate her pain. Due to failing conservative management. Patient is elected proceed with surgical invention. Review Of Systems: A 12 point review of systems is performed and is unremarkable except for those things stated in the HPI past medical history. Past Medical History: Problems: Arthritis of left hip Cerumen impaction HTN Osteoporosis Swallowing dysfunction Caregiver stress Caregiver stress Cardiac pacemaker Osteoarthritis of left hip S/P total knee arthroplasty Hearing loss Ankle edema Osteoarthritis of knees, bilateral Right knee pain Annual physical exam Breast cancer screening Impacted cerumen of both ears Suspected DVT (deep vein thrombosis) Leg swelling Loss of weight Loss of weight Generalized osteoarthritis Left knee pain Left leg pain Suprapatellar bursitis of left knee Back pain with right-sided sciatica Oral ulceration Boil of groin Atypical chest pain Dysphagia Osteopenia Dyspnea Hernia, inguinal Post-operative state Female cystocele Prolapsed urethral mucosa Preop examination PMB (postmenopausal bleeding) Benign skin lesion of nose Spinal stenosis of lumbar region with radiculopathy History of lumbar fusion Sacroiliitis Chronic SI joint pain Hemangioma of liver Cyst, ovarian Flank pain Urinary tract infection Prophylactic administration of vaccine against other diseases Edema ROUTINE GENERAL MEDICAL EXAMINATION AT A HEALTH CARE FACILITY Left axis deviation Post-menopausal DJD (degenerative joint disease) H/O thyroid nodule H/O hypercholesterolemia Leukopenia History of colon polyps Syncope Procedure History Procedure Procedure Date Comments Complete heart block Hernia - repair 2019 Total knee arthroplasty 08/10/2023 - Right Mammogram 01/26/2022 - No mammographic evidence of malignancy. 1 year screening is recommended. Mammogram 01/22/2021 - IMPRESSION: ACR BI-RADS CATEGORY 2: BENIGNThere is no mammofraphic evidence of malignancy. A 1 year screening mammogram is recommended. (01/23/2022) The patient will receive written notification of the results. Mammogram 01/18/2019 - IMPRESSION: ACR BI-RADS CATEGORY 2: BENIGNThere is no mammographic evidence of malignancy. A 1 years screening mammogram is recommended. (01/19/2020) The patient will receive written notification of the ressults. CT of orbits 04/18/2018 - Normal posterior fossa. No evidence for choesteatoma or CP angle cistern lesion. DEXA (dual energy X-ray photon absorptiometry) scan of lateral spine 03/15/2018 - T-scores : spine 0.3; L femur neck -2.0; R femur neck -2.4; total femur - 2.1. FRAX scores : major osteoporotic fx 18.1%, hip fx 6.0%. Repair of inguinal hernia 01/27/2018 - [facility] Mammogram 01/17/2018 - There is no mammographic evidence of malignancy. 1 year screening mammogram is recommended. Mammogram 01/13/2017 - There is no mammographic evidence of malignancy. 1 year screening is recommended. Cystoscopy 06/17/2016 Anterior colporrhaphy 06/17/2016 Hysterectomy 06/17/2016 Uterosacral ligament 06/17/2016 Dilation and curettage of uterus 02/26/2016 - ECC: inflammation, endometrium : benign proliferative endometrium with breakdown, enometrial polyp : benign proliferative endoemtrium. Proliferative endometrium unusual for post-menopausal woman, but no hyperplasia or cancer seen. Hysteroscopy 02/26/2016 Polypectomy 02/26/2016 - endometrial Mammogram 01/14/2016 - There is no mammographic evidence of malignancy. A 1 year screening mammogram is recommended - No malignancy. One year screening recommended. Ultrasound of pelvis 01/13/2016 - [facility] CneterImpression:1. Slight enlargement in the complex left ovaarian cyst currently measuring 25 mm2. Abnormal fluid filled endometrial cavity measuring 1 cm. in thickness. [facility] reportCervix/endocervixNegative for intraepithelial lesion or malignancy Injection of sacroiliac joint using fluoroscopic guidance 01/09/2015 - [facility] Ultrasound scan of abdomen and pelvis 08/13/2014 - A 1.7 cm slightly complex left ovarian cyst dimished in maximum dimension from a prior CT study of 06/11/2014 measuring 2.5cm on the prior exam. CT of abdomen and pelvis 06/11/2014 - 1. There are no acute infectous or inflammatory findings in the abdomen or pelvis.2. Cardiomegaly and cardiac pacemaker.3. Small to moderate hiatal hernia.4. There are at least 3 lobulated low attenuation lover lesions. These are unchanged dating back to a 2012 abdominal ultrasound and are typical in appearane for hfemangiomas.5. There is a 2.5cm cystic lesion in the left ovary. This is of low suspicion, but a followup nonemergent pelvic ultrasound is recommended for further evaluation.6. Additional changes as above. Papanicolaou smear 02/16/2014 Mammogram - screening 11/09/2012 cholecystectomy 08/14/2012 Colonoscopy 04/05/2009 - benign polyps, due in 2014 Laminectomy 12/16/2005 thyroid nodule removed 04/05/1978 left middle ear reconstruction 04/05/1975 Allergies and Sensitivities: Mobic(bloating) Current Home Meds: (Last Updated 02/21 13:50) amoxicillin (amoxicillin 500 mg oral capsule) 2,000 mg PO As indicated one hour before dental and other procedures as directed ascorbic acid (Vitamin C 500 mg oral tablet) 1 tab PO Daily aspirin (aspirin 81 mg oral capsule) calcium and vitamin D combination (Calcium 600+D) PO tid cholecalciferol (Vitamin D3 1000 intl units oral tablet) 1,000 Int_Unit PO Daily docusate (Dulcolax Stool Softener) 100 mg PO Daily gabapentin (gabapentin 300 mg oral capsule) 1 cap PO Daily glucosamine (glucosamine hydrochloride 1500 mg oral tablet) 1,500 mg PO Daily hydroCHLOROthiazide (hydroCHLOROthiazide 25 mg oral tablet) 1 tab PO Daily latanoprost ophthalmic (latanoprost 0.005% ophthalmic solution) 1 drop both eyes qhs Store intact bottles under refrigeration. Once opened, the container may be stored at room temperature for 6 weeks. [place] Hernandes 07/18 10:41 multivitamin with minerals (PreserVision AREDS 2) multivitamin 1 tab PO Daily ocular lubricant (Systane Complete Preservative Free Dry Eye Relief) 2 drop both eyes qid polyethylene glycol 3350 (MiraLax oral powder for reconstitution) 17 g PO Daily Initial Wt: 02/21 57.0 kg 125 lb Allergies Allergy/AdvReac Type Severity Reaction Status Date / Time meloxicam Allergy Intermediate Swelling- Verified 08/10/23 08:04 stomach Home Medications Medication Instructions Recorded Confirmed Type ascorbic acid (vitamin C) 500 mg 500 mg PO QAM 01/11/18 08/10/23 History tablet (Vitamin C) calcium 600 mg (as 1 tab PO QAM 01/11/18 08/10/23 History carbonate)-vitamin D3 5 mcg (200 unit) capsule (Calcium 600 + D(3)) cholecalciferol (vitamin D3) 25 1,000 unit PO QPM 01/11/18 08/10/23 History mcg (1,000 unit) capsule (Vitamin D3) docusate sodium 250 mg capsule 250 mg PO BID 01/11/18 08/10/23 History (Stool Softener) multivitamin (Multiple Vitamins 1 tab PO QAM 01/11/18 08/10/23 History tablet) polyethylene glycol 3350 17 1 dose PO QAM 01/11/18 08/10/23 History gram/dose oral powder (Miralax) hydrochlorothiazide 25 mg tablet 25 mg PO QAM #90 tabs 04/18/19 08/10/23 Rx gabapentin 300 mg capsule 300 mg PO QPM 08/15/20 08/10/23 History (Neurontin) glucosamine sulf dipot 1 cap PO BID 07/20/23 08/10/23 History chlr,msm,chond 550 mg-C 30 mg-richardson 1 mg capsule (Glucosamine Chondroitin) latanoprost 0.005 % eye drops 1 drp ophthalmic (eye) PM 07/20/23 08/10/23 History peg 400-propylene glycol (PF) 0.4 1 drp ophthalmic (eye) QID 07/20/23 08/10/23 History %-0.3 % eye drops in a dropperette (Systane (PF)) vit C 250 mg-vit E 90 mg-zinc 40 1 tab PO BID 07/20/23 08/10/23 History mg-copper 1 [id number] capsule (PreserVision AREDS-2) acetaminophen 500 mg tablet 1,000 mg (2 x 500 mg) PO Q8 #30 08/11/23 Rx (Tylenol Extra Strength) tabs oxycodone 5 mg tablet 5 - 10 mg (1 - 2 x 5 mg) PO Q4H 08/11/23 Rx PRN pain #20 tabs Past Med/Surg History Problem List Osteoarthritis of left hip DVT prophylaxis S/P total knee arthroplasty Hypercholesterolemia LVH (left ventricular hypertrophy) Paroxysmal SVT (supraventricular tachycardia) Encounter for pre-operative examination Urinary tract infection (Acute) Left ovarian cyst (Acute) Hypertension Sick sinus syndrome Dual chamber implanted 2005, replaced [address] Irizarry History of ear surgery left ear Medical History Pacemaker History of COVID-19 04/2023- mild symptoms, resolved Osteoarthritis Surgical History History of tooth extraction History of right inguinal hernia repair History of right cataract extraction Hx of colonoscopy Hx of hysterectomy Hx laparoscopic cholecystectomy History of lumbar fusion History of permanent cardiac pacemaker placement Implanted 2005 [employer], replaced 2014 Family History Father Coronary heart disease Mother Dementia Other No family history of adverse response to anesthesia Social History Smoking Status: Never smoker Second Hand Exposure: No; Do You Dip or Chew Tobacco: No; Hx Alcohol Use: No Hx Substance Use: No Preferred Language: [place] Communication Ability: Effective Visual Impairment: No Limitations Vacuum Technician Required: No Beliefs That Will Affect Care: None marital status: Current Living Situation: Spouse current occupational status: retired current occupation: worked in a [employer] How many Children do You have: 2 Feels Safe at Home: Yes Assistive Devices: Walker Review of Systems All systems reviewed & are unremarkable except as noted in Subjective Physical Exam Physical Exam: Physical Exam: (relevant to the procedure, including heart and lung evaluation) General: Alert and oriented x 3 with proper grooming and hygiene Eyes: Pupils are equal and reactive to light with accommodation. Extraocular movements are intact Throat: Posterior pharynx clear with absence of edema, erythema or exudate. Lower dentition is appropriate. Upper dentures Cardiac: Regular rate and rhythm with no murmurs or gallops appreciated Lungs: Clear to auscultation throughout with no wheezing, rales or rhonchi Abdomen: Nonobese, nondistended, nontender with NABS Extremities: Left hip; patient experiences tenderness to palpation in the groin and over the trochanteric bursa. Straight leg raise test is positive. Logroll test is positive. Stinchfield test is positive. Impingement tests positive. Flexion is limited to 90 degrees, internal rotation to 5 degrees and external rotation to 30 degrees. Patient ambulates with the assistance of a cane with antalgic gait Neuro: Cranial nerves II through XII are intact no motor or sensory deficit Skin: Normal in appearance with no open skin areas or discharge Results & Data Diagnostic Findings Studies (relevant to the procedure): AP Pelvis, False Profile, and Cross Table Laterally views of the left hip obtained show hardware L3-L5 for posterior spinal fusion. Wuia-ut-fflo arthritis in the left hip.
--- NOTE | 2024-03-15 14:23 | PAT Medication Instructions ---
Medication Instructions Date of Service March 15, 2024 Home Medications Medication Instructions Recorded hydrochlorothiazide 25 mg tablet 25 mg PO QAM #90 tabs 04/18/19 acetaminophen 500 mg tablet 1,000 mg (2 x 500 mg) PO Q8 #30 08/11/23 (Tylenol Extra Strength) tabs oxycodone 5 mg tablet 5 - 10 mg (1 - 2 x 5 mg) PO Q4H 08/11/23 PRN pain #20 tabs ascorbic acid (vitamin C) 500 mg tablet (Vitamin C) 500 mg PO QAM calcium 600 mg (as carbonate)-vitamin D3 5 mcg (200 unit) capsule (Calcium 600 + D(3)) 1 tab PO QAM cholecalciferol (vitamin D3) 25 mcg (1,000 unit) capsule (Vitamin D3) 1,000 unit PO QPM docusate sodium 250 mg capsule (Stool Softener) 250 mg PO BID multivitamin (Multiple Vitamins tablet) 1 tab PO QAM polyethylene glycol 3350 17 gram/dose oral powder (Miralax) 1 dose PO QAM hydrochlorothiazide 25 mg tablet 25 mg PO QAM gabapentin 300 mg capsule (Neurontin) 300 mg PO QPM glucosamine sulf dipot chlr,msm,chond 550 mg-C 30 mg-richardson 1 mg capsule (Glucosamine Chondroitin) 1 cap PO BID latanoprost 0.005 % eye drops 1 drp ophthalmic (eye) PM peg 400-propylene glycol (PF) 0.4 %-0.3 % eye drops in a dropperette (Systane (PF)) 1 drp ophthalmic (eye) QID acetaminophen 500 mg tablet (Tylenol Extra Strength) 1,000 mg (2 x 500 mg) PO Q8 oxycodone 5 mg tablet 5 - 10 mg (1 - 2 x 5 mg) PO Q4H PRN pain aspirin 81 mg capsule 81 mg PO DAILY ASK your prescriber and surgeon aspirin 81 mg capsule 81 mg PO DAILY STOP taking 2 weeks before surgery (or as soon as possible if surgery is within 2 weeks) glucosamine sulf dipot chlr,msm,chond 550 mg-C 30 mg-richardson 1 mg capsule (Glucosamine Chondroitin) 1 cap PO BID DO NOT take the morning of surgery ascorbic acid (vitamin C) 500 mg tablet (Vitamin C) 500 mg PO QAM calcium 600 mg (as carbonate)-vitamin D3 5 mcg (200 unit) capsule (Calcium 600 + D(3)) 1 tab PO QAM docusate sodium 250 mg capsule (Stool Softener) 250 mg PO BID multivitamin (Multiple Vitamins tablet) 1 tab PO QAM polyethylene glycol 3350 17 gram/dose oral powder (Miralax) 1 dose PO QAM hydrochlorothiazide 25 mg tablet 25 mg PO QAM Take morning of surgery With a small sip of water, OTHERWISE NOTHING TO EAT OR DRINK AFTER MIDNIGHT: peg 400-propylene glycol (PF) 0.4 %-0.3 % eye drops in a dropperette (Systane (PF)) 1 drp ophthalmic (eye) QID acetaminophen 500 mg tablet (Tylenol Extra Strength) 1,000 mg (2 x 500 mg) PO Q8 oxycodone 5 mg tablet 5 - 10 mg (1 - 2 x 5 mg) PO Q4H PRN pain (if needed) Take evening before surgery cholecalciferol (vitamin D3) 25 mcg (1,000 unit) capsule (Vitamin D3) 1,000 unit PO QPM docusate sodium 250 mg capsule (Stool Softener) 250 mg PO BID gabapentin 300 mg capsule (Neurontin) 300 mg PO QPM latanoprost 0.005 % eye drops 1 drp ophthalmic (eye) PM peg 400-propylene glycol (PF) 0.4 %-0.3 % eye drops in a dropperette (Systane (PF)) 1 drp ophthalmic (eye) QID acetaminophen 500 mg tablet (Tylenol Extra Strength) 1,000 mg (2 x 500 mg) PO Q8 oxycodone 5 mg tablet 5 - 10 mg (1 - 2 x 5 mg) PO Q4H PRN pain (if needed) Other Notes If you have any questions please call us at [phone] or [phone] or [phone] or [phone]
--- NOTE | 2024-03-17 09:29 | Anesthesiology Consultation ---
Date of Service March 17, 2024 Assessment & Plan (1) Encounter for pre-operative examination: - Infectious disease screening: Per assessment on 03/17/24- No known recent infectious disease contacts or current infectious disease symptoms. - Outpatient joint assessment: Pt currently scheduled for inpatient pathway. If surgeon requests review for outpatient joint pathway, patient is not recommended candidate for outpatient joint program from anesthesia standpoint based on available information. - Cardiology visit (07/19/23): "The patient is stable from cardiovascular standpoint. She demonstrates excellent control of her blood pressure at home. Cholesterol values are also acceptable. She demonstrates excellent functional status without cardiac symptoms. 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 Kathryn Martinez/[facility], appt 03/21). Chart Review Chart Review: Patient seen in Pre Admission Testing Teaching & Discussion Pre-Anesthesia Teaching/Discussion Notes: Instructed NPO after midnight before surgery,except medications with 15 cc of water. Medication instructions provided according to the PAT guidelines. History Surgery Operation Date: 04/06/24 11:55 Proposed Procedures p Left Total Hip Arthroplasty - Sergey David MD Height/Weight Height: 4 ft 11.84 in Weight: 57 kg Allergies Allergy/AdvReac Type Severity Reaction Status Date / Time meloxicam Allergy Intermediate Swelling- Verified 08/10/23 08:04 stomach Medications Home Medications Medication Instructions Recorded Confirmed Last Taken ascorbic acid (vitamin C) 500 mg 500 mg PO QAM 01/11/18 03/15/24 04/26/18 tablet (Vitamin C) calcium 600 mg (as 1 tab PO QAM 01/11/18 03/15/24 04/26/18 carbonate)-vitamin D3 5 mcg (200 unit) capsule (Calcium 600 + D(3)) cholecalciferol (vitamin D3) 25 1,000 unit PO QPM 01/11/18 03/15/24 04/25/18 mcg (1,000 unit) capsule (Vitamin D3) docusate sodium 250 mg capsule 250 mg PO BID 01/11/18 03/15/24 08/09/23 08:00 (Stool Softener) multivitamin (Multiple Vitamins 1 tab PO QAM 01/11/18 03/15/24 04/26/18 tablet) polyethylene glycol 3350 17 1 dose PO QAM 01/11/18 03/15/24 08/09/23 08:00 gram/dose oral powder (Miralax) hydrochlorothiazide 25 mg tablet 25 mg PO QAM #90 tabs 04/18/19 03/15/24 08/09/23 08:00 gabapentin 300 mg capsule 300 mg PO QPM 08/15/20 03/15/24 08/09/23 17:00 (Neurontin) glucosamine sulf dipot 1 cap PO BID 07/20/23 03/15/24 Unknown chlr,msm,chond 550 mg-C 30 mg-richardson 1 mg capsule (Glucosamine Chondroitin) latanoprost 0.005 % eye drops 1 drp ophthalmic (eye) PM 07/20/23 03/15/24 08/10/23 06:00 peg 400-propylene glycol (PF) 0.4 1 drp ophthalmic (eye) QID 07/20/23 03/15/24 08/10/23 06:00 %-0.3 % eye drops in a dropperette (Systane (PF)) acetaminophen 500 mg tablet 1,000 mg (2 x 500 mg) PO Q8 #30 08/11/23 03/15/24 Unknown (Tylenol Extra Strength) tabs oxycodone 5 mg tablet 5 - 10 mg (1 - 2 x 5 mg) PO Q4H 08/11/23 03/15/24 Unknown PRN pain #20 tabs aspirin 81 mg capsule 81 mg PO DAILY 03/15/24 03/15/24 Unknown Past Medical History Medical History Glaucoma History of COVID-19 04/2023- mild symptoms, resolved HTN (hypertension) Hx of supraventricular tachycardia Hypercholesteremia LVH (left ventricular hypertrophy) Follows with [facility] Osteoarthritis Pacemaker Dual chamber implanted 2005, replaced [address] Irizarry/[facility] Sick sinus syndrome Dual chamber implanted 2005, replaced [address] Irizarry/[facility] Exercise / Class Metabolic Activity III < 4 Walking/Shop/Light housework (uses walker) Past Family History Family History Father Coronary heart disease Mother Dementia Other No family history of adverse response to anesthesia Past Surgical History Surgical History History of ear surgery left History of lumbar fusion History of permanent cardiac pacemaker placement Implanted 2005 [employer], replaced 2014 History of right cataract extraction History of right inguinal hernia repair History of tooth extraction Hx laparoscopic cholecystectomy Hx of colonoscopy Hx of hysterectomy S/P total knee replacement right Past Anesthesia History No Hx of Anesthesia Complications and No Family Hx of Anesthesia Complications History of PONV No Hx of PONV and No Hx of Motion Sickness Social History Smoking Status: Never smoker Do You Dip or Chew Tobacco: No Hx Alcohol Use: No Hx Substance Use: No substance use type: does not use Review of Systems Patient denies chest pain, shortness of breath, fever, chills, cough, wheezing, palpitations. Physical Exam Vital Signs BP 153/75 P 86 TEMP 98.3 SP02 95%RA RESP 18 Physical Full cervical extension range of motion. Full TMJ range of motion. TMD > 3.5 finger breaths Mallampati Score III Dentition: upper full plate, lower partial Lungs: clear throughout to auscultation Cardiac: regular rate and rhythm, no murmurs noted Spine: normal Carotid arteries: negative bruit Extremities: non-pitting LE edema Lab Results Anesthesia Preop Results Results Anesthesia Widget: WBC 6.07 K/ul (4.8-10.8) 03/17/24 Hgb 13.4 g/dl (12.0-16.0) 03/17/24 Hct 39.9 % (37.0-47.0) 03/17/24 Plt 222 K/uL (130-400) 03/17/24 Na 138 mmol/L (136-145) 03/17/24 K 4.5 mmol/L (3.5-5.1) 03/17/24 Cl 100 mmol/L (98-107) 03/17/24 CO2 32 mmol/L (21-32) 03/17/24 BUN 21 mg/dl (6-23) 03/17/24 Creat 0.67 mg/dl (0.6-1.2) 03/17/24 Glucose Level 95 mg/dl (70-99(Fasting)) 03/17/24 PT 10.4 Seconds (9.0-12.0) 03/17/24 PTT 27 Seconds (21-31) 03/17/24 INR 1.0 (0.9-1.1) 03/17/24 Urine Color Dark Yellow 03/17/24 Urine Appearance Clear (Clear) 03/17/24 Urine pH 5.5 (4.5-7.5) 03/17/24 Urine Specific [place] 1.028 (1.000-1.030) 03/17/24 Urine Protein Negative (Negative) 03/17/24 Urine Glucose (UA) Negative (Negative) 03/17/24 Urine Ketones Trace (Negative) H 03/17/24 Urine Blood Negative (Negative) 03/17/24 Urine Nitrite Negative (Negative) 03/17/24 Urine Bilirubin Negative (Negative) 03/17/24 Urine Urobilinogen Negative (Negative) 03/17/24 Urine Leukocyte Esterase Trace (Negative) H 03/17/24 Urine WBC (Auto) 0-5 /hpf (0-5) 03/17/24 Urine RBC (Auto) 0-2 /hpf (0-2) 03/17/24 Urine Hyaline Casts (Auto) 3-5 /lpf (0-2) H 03/17/24 Urine Epithelial Cells (Auto) 0-2 /hpf (0-2) 03/17/24 Urine Bacteria (Auto) None Seen (None Seen) 03/17/24 Blood Type B Positive 03/17/24 Antibody Screen NEGATIVE 03/17/24 Testing Electrocardiogram Date: 07/21/23 SR with PACs at 69bpm. "Otherwise normal ECG" Chest X-Ray Date: 07/21/23 FINDINGS: Postoperative findings within the spine, cholecystectomy clips and a left subclavian pacer are incidentally noted. There is a moderate sized hiatal hernia. Cardiac size is normal. Mediastinal contours are stable. There is no pneumothorax or pleural effusion. There is no consolidation or evidence for pulmonary edema. IMPRESSION: No acute cardiopulmonary findings. No change in appearance of the chest. Other Testing Pacer check Date: 01/13/24 AP 34.7%. [employer] <0.1%. Battery longevity 5 years, Mode AAIR <=> DDDR.
[~2024-04-06 07:21] MED LIST changes: -ROPIVACAINE 0.5% 5 MG/ML 30 ML VIAL ONE; +ROPIVACAINE 0.5% HCL/PF 246 MG, Ketorolac (*for OR use only*) 30 MG, EPINEPHrine 30MG/3... INFIL SCH
--- OUTSIDE RECORDS SUMMARY | 2024-04-06 07:30 | External Medical Summary | Continuity of Care Document ---
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 Name Role Phone Kathryn Martinez Primary Care Physician [phone] Encounter [facility] [id number] Date(s): 03/21/24 - 03/21/[address] [facility] [address], [address] [place] [address] [phone] Encounter Diagnosis Pre-op exam(Discharge Diagnosis) - 03/21/24 Right hip pain(Discharge Diagnosis) - 03/21/24 Discharge Disposition: Home or Self Care Attending Physician: ISAURA Rosa, Elizabeth Mchugh Allergies, Adverse Reactions, Alerts Substance Criticality Severity Reaction Reaction Severity Status Mobic bloating Active Assessment and Plan Extracted from: Title:Office Visit Note - APSO Author:LEONARDO Michaels NP, Andreia Bailey Date:03/21/24 1.Pre-op exam Problem isChronic - not controlled Goal:maintenance Plan:reviewed labs, previous cardiologynotes, ortho notes, EKG, CXR EKG and CXR completed prior to previous surgery. reviewed tylenol3,000mg max/24 hours can monitor BP, acute pain today from movement and sacral fracture We discussed the risks and benefits of surgery, patient has voiced understanding. After careful consideration and examination there are no major contraindications for surgery and this patient is understanding of the risks associated with surgery. Patient verbalizes understanding and agrees with sangeeta well asreturn precautions. Immunizations Given and Recorded Vaccine Date Status Refusal Reason influenza virus vaccine, inactivated 01/22/22 Give n influenza virus vaccine, inactivated 12/23/20 Give n influenza virus vaccine, inactivated 01/05/20 Give n influenza virus vaccine, inactivated 01/04/19 Give n influenza virus vaccine, inactivated 10/1/18 Give n influenza virus vaccine, inactivated 12/23/16 Give n influenza virus vaccine, inactivated 02/21/16 Give n influenza virus vaccine, inactivated 02/25/15 Give n influenza virus vaccine, inactivated 02/20/14 Give n influenza virus vaccine, inactivated 01/15/13 Alex rded SARS-CoV-2 mRNA (tozinameran 5y-11y) 04/03/21 Alex rded SARS-CoV-2 mRNA (tozinameran 5y-11y) 06/19/20 Alex rded SARS-CoV-2 (COVID-19) mRNA-1273 vaccine 05/21/20 G iven zoster vaccine, inactivated 1 05/09/19 Recorded zoster vaccine, inactivated 2 01/16/19 Recorded pneumococcal 13-valent vaccine 02/20/14 Given zoster vaccine live 07/02/09 Recorded pneumococcal 23-valent vaccine 05/13/09 Recorded tetanus toxoids-diphtheria, Td (Adult) 03/30/00 Re corded 1Result Comment: 2022-04-03: Historical information-source unspecified 2Result Comment: 2022-04-03: Historical information-source unspecified Medications amoxicillin 500 mg oral capsule Start: 08/24/23 11:07:00 AM EDT, 4 cap, PO, As indicated, Disp# 12 cap, Refills: 3, one hour before dental and other procedures as directed, Pharmacy: [facility] Start Date: 08/24/23 Status: Ordered Calcium 600+D Start: 05/16/10 1:36:00 PM EST, PO, tid Start Date: 05/16/10 Status: Ordered Dulcolax Stool Softener Start: 02/25/15 9:43:00 AM EST, 100 mg =, PO, Daily Start Date: 02/25/15 Status: Ordered gabapentin 300 mg oral capsule Start: 10/05/23 12:22:00 PM EDT, 1 cap, PO, Daily, Disp# 90 cap, Refills: 3, Pharmacy: [facility] Start Date: 10/05/23 Status: Ordered glucosamine hydrochloride 1500 mg oral tablet Start: 08/03/16 11:27:00 AM EDT, 1 tab, PO, Daily Start Date: 08/03/16 Status: Ordered hydroCHLOROthiazide 25 mg oral tablet Start: 08/27/23 9:06:00 AM EDT, 1 tab, PO, Daily, Disp# 90 tab, Refills: 3, Pharmacy: [facility] Start Date: 08/27/23 Status: Ordered latanoprost 0.005% ophthalmic solution Start: 07/19/23 10:39:00 AM EDT, 1 drop, both eyes, qhs Start Date: 07/19/23 Status: Ordered MiraLax oral powder for reconstitution Start: 02/25/15 9:43:00 AM EST, 17 g =, PO, Daily Start Date: 02/25/15 Status: Ordered multivitamin Start: 08/03/16 11:27:00 AM EDT, 1 tab, PO, Daily Start Date: 08/03/16 Status: Ordered PreserVision AREDS 2 Start: 10/15/21 1:41:00 PM EDT Start Date: 10/15/21 Status: Ordered Systane Complete Preservative Free Dry Eye Relief Start: 07/19/23 10:40:00 AM EDT, 2 drop, both eyes, qid Start Date: 07/19/23 Status: Ordered Ultram 50 mg oral tablet Start: 03/21/24 3:06:00 PM EST, 1 tab, PO, q8h, Disp# 20 tab, Refills: 0, for severe pain not responding to tylenol not to exceed 400 mg/day, PRN: as needed for pain, Pharmacy: [facility], [facility] Start Date: 03/21/24 Status: Ordered Vitamin C 500 mg oral tablet Start: 05/16/10 1:37:00 PM EST, 1 tab, PO, Daily Start Date: 05/16/10 Status: Ordered Vitamin D3 1000 intl units oral tablet Start: 04/19/18 11:23:00 AM EST, 1 tab, PO, Daily Start Date: 04/19/18 Status: Ordered Mental Status 03/21/24 Barriers to Learning one year None evide nt Mandatory Health Literacy Documentation Yes Health Literacy Communication Barriers N ever Primary Language [place] Problem List Condition Confirmation Course Effective Dates Status Health Status Informant Ankle edema Confirmed Active Arthritis of left hip Confirmed Active Atypical chest pain Confirmed Active Back pain with right-sided sciatica Confirmed Active Osteoarthritis of knees, bilateral Confirmed Active Cardiac pacemaker Confirmed Active Caregiver stress Confirmed Active Caregiver stress Confirmed Active Cyst, ovarian Confirmed Active Generalized osteoarthritis Confirmed Active DJD (degenerative joint disease) 1 Confirmed Active Dysphagia Confirmed Active Dyspnea Confirmed Active Edema Confirmed Active Flank pain Confirmed Active Boil of groin Confirmed Active H/O hypercholesterolemia Confirmed Active H/O thyroid nodule 2 Confirmed Active Hearing loss Confirmed Active Hemangioma of liver Confirmed Active History of colon polyps 3 Confirmed 08/03/09 Active History of lumbar fusion Confirmed Active S/P total knee arthroplasty Confirmed Active HTN Confirmed Active Impacted cerumen of both ears Confirmed Active Cerumen impaction Confirmed Active Female cystocele Confirmed Active Hernia, inguinal Confirmed Active Left knee pain Confirmed Active Left axis deviation Confirmed Active Leukopenia Confirmed Active Osteoarthritis of left hip Confirmed Active Osteopenia Confirmed Active Osteoporosis Confirmed Active Left leg pain Confirmed Active Right knee pain Confirmed Active Annual physical exam Confirmed Active Breast cancer screening Confirmed Active Post-menopausal Confirmed Active PMB (postmenopausal bleeding) Confirmed Active Post-operative state Confirmed Active Preop examination Confirmed Active Prolapsed urethral mucosa Confirmed Active ROUTINE GENERAL MEDICAL EXAMINATION AT A HEALTH CARE FACILITY Confirmed Active Sacroiliitis Confirmed Active Chronic SI joint pain Confirmed Active Benign skin lesion of nose Confirmed Active Spinal stenosis of lumbar region with radiculopathy Confirmed Active Suprapatellar bursitis of left knee Confirmed Active Suspected DVT (deep vein thrombosis) Confirmed Active Swallowing dysfunction Confirmed Active Leg swelling Confirmed Active Syncope 4 Confirmed 05/06/05 Active Oral ulceration Confirmed Active Urinary tract infection Confirmed Active Loss of weight Confirmed Active Loss of weight Confirmed Active 1lumbar spine 2complex cyst needs yearly u/s 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; pacer placement Diagnosis Diagnosis Type Effective Dates Health Status Cl inical Service Informant Right hip pain Discharge Diagnosis 03/21/24 Non-Specified Pre-op exam Discharge Diagnosis 03/21/24 Non-Specified Procedures Procedure Date Related Diagnosis Body Site Status Total knee arthroplasty 1 08/10/23 Completed Mammogram 2 01/26/22 Completed Mammogram 3 01/22/21 Completed Mammogram 4 01/18/[address] of orbits 5 04/18/18 Completed DEXA (dual energy X-ray phot on absorptiometry) scan of lateral spine 6 03/15/18 Completed Repair of inguinal hernia 7 01/27/18 Completed Mammogram 8 01/17/18 Completed Mammogram 9 01/13/17 Completed Anterior colporrhaphy 06/17/16 Com pleted Cystoscopy 06/17/16 Completed Hysterectomy 06/17/16 Completed Uterosacral ligament 06/17/16 Comp leted Dilation and curettage of uterus 10 02/26/16 Completed Hysteroscopy 02/26/16 Completed Polypectomy 11 02/26/16 Completed Mammogram 12, 13 01/14/16 Complete d Ultrasound of pelvis 14 01/13/16 C ompleted Pathology report 15 04/10/15 Compl eted Injection of sacroiliac join t using fluoroscopic guidance 16 01/09/15 Complet ed Ultrasound scan of abdomen a nd pelvis 17 08/13/[address] of abdomen and pelvis 18 06/11/14 Completed Papanicolaou smear 02/16/14 Comple batsheva Mammogram - screening 11/09/12 Com pleted cholecystectomy 08/14/12 Completed Colonoscopy 19 04/05/09 Completed Laminectomy 12/16/05 Completed thyroid nodule removed 04/05/78 Co mpleted left middle ear reconstruction 04/05/75 Completed Complete heart block Comp leted Hernia 20 Completed 1Right 2No mammographic evidence of malignancy. 1 year screening is recommended. 3IMPRESSION: ACR BI-RADS CATEGORY 2: BENIGN There is no mammofraphic evidence of malignancy. A 1 year screening mammogram is recommended. (01/23/2022) The patient will receive written notification of the results. 4IMPRESSION: ACR BI-RADS CATEGORY 2: BENIGN There is no mammographic evidence of malignancy. A 1 years screening mammogram is recommended. (01/19/2020) The patient will receive written notification of the ressults. 5Normal posterior fossa. No evidence for choesteatoma or CP angle cistern lesion. 6T-scores : spine 0.3; L femur neck -2.0; R femur neck -2.4; total femur -2.1. FRAX scores : major osteoporotic fx 18.1%, hip fx 6.0%. 7[facility] 8There is no mammographic evidence of malignancy. 1 year screening mammogram is recommended. 9There is no mammographic evidence of malignancy. 1 year screening is recommended. 10ECC: inflammation, endometrium : benign proliferative endometrium with breakdown, enometrial polyp : benign proliferative endoemtrium. Proliferative endometrium unusual for post-menopausal woman, butno hyperplasia or cancer seen. 11endometrial 12There is no mammographic evidence of malignancy. A 1 year screening mammogram is recommended 13No malignancy. One year screening recommended. 14[facility] Cneter Impression: 1. Slight enlargement in the complex left ovaarian cyst currently measuring 25 mm 2. Abnormal fluid filled endometrial cavity measuring 1 cm. in thickness. 15[facility] Gynecological cytology report Cervix/endocervix Negative for intraepithelial lesion or malignancy 16[facility] 17A 1.7 cm slightly complex left ovarian cyst dimished in maximum dimension from a prior CT study of 06/11/2014 measuring 2.5cm on the prior exam. 181. There are no acute infectous or inflammatory findings in the abdomen or pelvis. 2. Cardiomegaly and cardiac pacemaker. 3. Small to moderate hiatal hernia. 4. There are at least 3 lobulated low attenuation lover lesions. These are unchanged dating back toa 2012 abdominal ultrasound and are typical in appearane for hfemangiomas. 5. There is a 2.5cm cystic lesion in the left ovary. This is of low suspicion, but a followup nonemergent pelvic ultrasound is recommended for further evaluation. 6. Additional changes as above. 19benign polyps, due in 2014 20repair 2019 Vital Signs Most recent to oldest [Reference Range]: 1 Temperature [36.5-37.9 DegC] 36.7 DegC (03/21/24 1:59 PM) Blood Pressure 160/72mmHg (03/21/24 1:59 PM) Cuff Pulse Pressure 88 mmHg (03/21/24 1:59 PM) Social History Social History Type Response Smoking Status Never smoked cigaret tod Sex Female Sex Representation Female (finding) FCM Outpt Note * SHANDRA Michaels Katy Marie: PERFORM Event Display: FCM Outpt Note Authored Date: [id number] Assessment/Plan 1.Pre-op exam Problem isChronic - not controlled Goal:maintenance Plan:reviewed labs, previous cardiologynotes, ortho notes, EKG, CXR EKG and CXR completed prior to previous surgery. reviewed tylenol3,000mg max/24 hours can monitor BP, acute pain today from movement and sacral fracture We discussed the risks and benefits of surgery, patient has voiced understanding. After careful consideration and examination there are no major contraindications for surgery and this patient is understanding of the risks associated with surgery. Patient verbalizes understanding and agrees with sangeeta well asreturn precautions. Chief Complaint Pt here for preop History of Present Illness I have been consulted by Dr. David to evaluate this patient for a pre- operative exam. The procedureTotal Left Hipis schedule for Apr 06 . Cardiovascular Risk Factors: yes, reviewed, saw cardiology in July and pacer check in January Blood Thinners: none Prior Anesthesia Reactions: none Alcohol use: none Tobacco use: none Substance use: none No falls, chest pain, SOB, dizziness, headaches, URI Review of Systems A total of 10 systems were reviewed. Pertinent positive and negatives addressed in HPI, all other findings are negative. Physical Exam Vitals & Measurements T:36.7C BP:160/72 SpO2:98% PHQ2 Data(Data Documented on:03/21/2024 14:02) Emotional health assessment NEGATIVE Constitutional: Alert and oriented, No acute distress, Well-appearing, Normal mood and affect Respiratory: Lung sounds are clear, equal chest rise and fall with breathing, no pursed lip breathing Cardiovascular: Heart sounds regular rate and rhythm, without gallop or murmur, no edema HEENT: Normocephalic, atraumatic, conjunctiva are clear, sclera non-icteric Skin: Warm, pink, dry, intact Problem List/Past Medical History Ongoing Ankle edema Annual physical exam Arthritis of left hip Atypical chest pain Back pain with right-sided sciatica Benign skin lesion of nose Boil of groin Breast cancer screening Cardiac pacemaker Caregiver stress Caregiver stress Cerumen impaction Chronic SI joint pain Cyst, ovarian DJD (degenerative joint disease) Dysphagia Dyspnea Edema Female cystocele Flank pain Generalized osteoarthritis H/O hypercholesterolemia H/O thyroid nodule Hearing loss Hemangioma of liver Hernia, inguinal History of colon polyps History of lumbar fusion HTN Impacted cerumen of both ears Left axis deviation Left knee pain Left leg pain Leg swelling Leukopenia Loss of weight Loss of weight Oral ulceration Osteoarthritis of knees, bilateral Osteoarthritis of left hip Osteopenia Osteoporosis PMB (postmenopausal bleeding) Post-menopausal Post-operative state Preop examination Prolapsed urethral mucosa Right knee pain ROUTINE GENERAL MEDICAL EXAMINATION AT A HEALTH CARE FACILITY S/P total knee arthroplasty Sacroiliitis Spinal stenosis of lumbar region with radiculopathy Suprapatellar bursitis of left knee Suspected DVT (deep vein thrombosis) Swallowing dysfunction Syncope Urinary tract infection Procedure/Surgical History Total knee arthroplasty| Service Date: 08/10/2023Mammogram| Service Date: 01/26/2022Mammogram| Service Date: 01/22/2021Mammogram| Service Date: 01/18/2019CT of orbits| Service Date: 04/18/2018DEXA (dual energy X-ray photon absorptiometry) scan of lateral spine| Service Date: 03/15/2018Repair of inguinal hernia| Service Date: 01/27/2018Mammogram| Service Date: 01/17/2018Mammogram| Service Date: 01/13/2017Uterosacral ligament| Service Date: 06/17/2016Hysterectomy|Service Date: 06/17/2016Anterior colporrhaphy| Service Date: 06/17/2016Cystoscopy| Service Date: 06/17/2016Polypectomy| Service Date: 02/26/2016Hysteroscopy| Service Date: 02/26/2016Dilation and curettage of uterus| Service Date: 02/26/2016Mammogram| Service Date: 01/14/2016Ultrasound of pelvis| Service Date: 01/13/2016Pathology report| Service Date: 04/10/2015Injectionof sacroiliac joint using fluoroscopic guidance| Service Date: 01/09/2015Ultrasound scan of abdomen and pelvis| Service Date: 08/13/2014CT of abdomen and pelvis| Service Date: 06/11/2014Papanicolaou smear| Service Date: 02/16/2014Mammogram - screening| Service Date: 11/09/2012cholecystectomy| Service Date: 08/14/2012Colonoscopy| Service Date: 04/05/2009Laminectomy| Service Date: 12/16/2005thyroid nodule removed| Service Date: 04/05/1978left middle ear reconstruction| Service Date: 04/05/1975Complete heart blockHernia Medications amoxicillin(amoxicillin 500 mg oral capsule), 2000 mg= 4 cap, PO, As indicated, 3 refills ascorbic acid(Vitamin C 500 mg oral tablet), 1 tab, PO, Daily calcium and vitamin D combination(Calcium 600+D), PO, tid cholecalciferol(Vitamin D3 1000 intl units oral tablet), 1000 Int_Unit= 1 tab, PO, Daily docusate(Dulcolax Stool Softener), 100 mg, PO, Daily gabapentin(gabapentin 300 mg oral capsule), 1 cap, PO, Daily glucosamine(glucosamine hydrochloride 1500 mg oral tablet), 1500 mg= 1 tab, PO, Daily hydroCHLOROthiazide(hydroCHLOROthiazide 25 mg oral tablet), 1 tab, PO, Daily latanoprost ophthalmic(latanoprost 0.005% ophthalmic solution), 1 drop, both eyes, qhs multivitamin, 1 tab, PO, Daily multivitamin with minerals(PreserVision AREDS 2) ocular lubricant(Systane Complete Preservative Free Dry Eye Relief), 2 drop, both eyes, qid polyethylene glycol 3350(MiraLax oral powder for reconstitution), 17 g, PO, Daily traMADol(Ultram 50 mg oral tablet), 50 mg= 1 tab, PO, q8h, PRN Allergies Mobicbloating Social History Smoking Status Never smoked cigarettes Alcohol - Denies Alcohol Use Employment/School Status:Retired Exercise Duration (average number of minutes):35 Times per week:Daily Exercise type:Walking Home/Environment Lives with:Spouse Substance Abuse - Denies Substance Abuse Tobacco - Denies Tobacco Use Family History Cancer: Father. Congestive heart failure: Mother. Heart attack: Father. Osteoporosis: Mother. Health Status Family Member(s) Immunizations Vaccine Date Status influenza virus vaccine, inactivated 01/22/2022 Given SARS-CoV-2 mRNA (tozinameran 5y-11y) 04/03/2021 Recorded influenza virus vaccine, inactivated 12/23/2020 Given SARS-CoV-2 mRNA (tozinameran 5y-11y) 06/19/2020 Recorded SARS-CoV-2 (COVID-19) mRNA-1273 vaccine 05/21/2020 Given influenza virus vaccine, inactivated 01/05/2020 Given zoster vaccine, inactivated 05/09/2019 Recorded Comments : 2022-04-03: Historical information-source unspecified zoster vaccine, inactivated 01/16/2019 Recorded Comments : 2022-04-03: Historical information-source unspecified influenza virus vaccine, inactivated 01/04/2019 Given influenza virus vaccine, inactivated 01/03/2018 Given influenza virus vaccine, inactivated 12/23/2016 Given influenza virus vaccine, inactivated 02/21/2016 Given influenza virus vaccine, inactivated 02/25/2015 Given influenza virus vaccine, inactivated 02/20/2014 Given pneumococcal 13-valent vaccine 02/20/2014 Given influenza virus vaccine, inactivated 01/15/2013 Recorded zoster vaccine live 07/02/2009 Recorded pneumococcal 23-valent vaccine 05/13/2009 Recorded tetanus toxoids-diphtheria, Td (Adult) 03/30/2000 Recorded Recommendations Health Maintenance Pending(in the next year) OverDue Adult Influenza Vaccine due10/03/23and every 1year Due Adult COVID-19 Vaccination due03/21/24Unknown Frequency Adult Social Determinants of Health Screening due03/21/24Unknown Frequency Adult Tdap/Td Vaccine due03/21/24Unknown Frequency Medicare Annual Wellness Visit due03/21/24and every 1year Satisfied(in the past 1 year) Satisfied Body Mass Index on03/21/24.Satisfied by SCHUYLER De Dios Mark Electronic Signature on File Electronically Reviewed/Signed by: SHANDRA Alcaraz Author Signature Dt/Tm:03/21/2024 03:20 PM Department of Family Medicine [facility] Patient Care team information Care Team Personnel Name: MD Michelle, Kathryn Durand Position: Physician - Family Med Member Role: Primary Care Provider Address: [address] [place] [address] Care Team Related Persons Name: CECY GUO Name: SENA ANTHONY"
--- OUTSIDE RECORDS SUMMARY | 2024-04-06 07:30 | External Medical Summary | Continuity of Care Document ---
Author Name Unknown Organization [id number] Address [address] [place] [id number] Care Team Providers Care Pony Rougher Name Role Phone Kathryn Martinez Primary Care Physician [phone] Encounter [facility] [id number] Date(s): 03/21/24 - 03/21/24 [facility] [place] [id number] Medicine [address] [place] [id number] Encounter Diagnosis Arthritis of left hip(Discharge Diagnosis) - 03/21/24 Discharge Disposition: Home or Self Care Attending Physician: ISAURA Mcbride, Prakash Sadelr Referring Physician: MD Frankie, Sergey Dwyer Allergies, Adverse Reactions, Alerts Substance Criticality Severity Reaction Reaction Severity Status Mobic bloating Active Immunizations Given and Recorded Vaccine Date Status Refusal Reason influenza virus vaccine, inactivated 01/22/22 Give n influenza virus vaccine, inactivated 12/23/20 Give n influenza virus vaccine, inactivated 01/05/20 Give n influenza virus vaccine, inactivated 01/04/19 Give n influenza virus vaccine, inactivated 01/03/18 Give n influenza virus vaccine, inactivated 12/23/16 [...] dental and other procedures as directed, Pharmacy: [facility], [facility] Start Date: 08/24/23 Status: Ordered Calcium 600+D Start: 05/16/10 1:36:00 PM EST, PO, tid Start Date: 05/16/10 Status: Ordered Dulcolax Stool Softener Start: 02/25/15 9:43:00 AM EST, 100 mg =, PO, Daily Start Date: 02/25/15 Status: Ordered gabapentin 300 mg oral capsule Start: 10/05/23 12:22:00 PM EDT, 1 cap, PO, Daily, Disp# 90 cap, Refills: 3, Pharmacy: [facility] Start Date: 10/05/23 Status: Ordered glucosamine hydrochloride 1500 mg oral tablet Start: 08/03/16 11:27:00 AM EDT, 1 tab, PO, Daily Start Date: 08/03/16 Status: Ordered hydroCHLOROthiazide 25 mg oral tablet Start: 08/27/23 9:06:00 AM EDT, 1 tab, PO, Daily, Disp# 90 tab, Refills: 3, Pharmacy: [facility] Start Date: 08/27/23 Status: Ordered [...] mg/day, PRN: as needed for pain, Pharmacy: [facility], [facility] Start Date: 03/21/24 Status: Ordered Vitamin [...] Literacy Communication Barriers N ever Primary Language Northern Irish Problem List Condition Confirmation Course Effective Dates [...] Dates Health Status Cl inical Service Informant Arthritis of left hip Discharge Diagnosis 03/21/24 Procedures Procedure Date Related Diagnosis Body Site [...] osteoporotic fx 18.1%, hip fx 6.0%. 7[facility] 8There is no mammographic evidence of [...] 13No malignancy. One year screening recommended. 14[facility] Cneter Impression: 1. Slight enlargement in the complex left ovaarian cyst currently measuring 25 mm 2. Abnormal fluid filled endometrial cavity measuring 1 cm. in thickness. [facility] Cervix/endocervix Negative for intraepithelial lesion or malignancy 16[facility] 17A 1.7 cm slightly complex left [...] Most recent to oldest [Reference Range]: 1 Height 152.0 cm (03/21/24 2:02 PM) Patient Weight 57.0 kg (03/21/24 2:02 PM) Body Mass Index 24.67 kg/m2 (03/21/24 2:02 PM) Temperature [36.5-37.9 DegC] 36.4 DegC *LOW* (03/21/24 2:02 PM) Respiratory Rate 24 br/min (03/21/24 2:02 PM) Blood Pressure 162/78mmHg (03/21/24 2:02 PM) Cuff Pulse Pressure 84 mmHg (03/21/24 2:02 PM) Social History Social History Type Response Smoking Status Never smoked cigaret tod Sex Female Sex Representation Female (finding) Pre-OP H & P * ISAURA Mcbride, Prakash D: PERFORM, MODIFY, MODIFY Event Display: Pre-OP H & P Authored Date: [id number] PRE-OPERATIVE HISTORY AND PHYSICAL Name: MATHEW GUO Patient Number: [id number] : 1940 Date of Service: 03/22/2024 PRE-OP Diagnosis: Left hip DJD Planned Procedure: Left total hip arthroplasty Chief Complaint: Left hip pain with loss of motion History of Present Illness (including history relevant to procedure): This 84-year-old female presents today with her , for her preoperative history and physical. She is scheduled to undergo aleft hip total hip arthroplasty on 04/06/[address] David. The patient has had pain since August2023. She had a total knee arthroplasty at that time. Pain has been persistent. It is worse with weightbearing. Worse with motion. She is ambulatory with a cane. She has tried conservative care measures without improvement. She elects to proceed with surgical invention in hopes of improving her pain and function. Preoperative imaging has been obtained. She denies any numbness or tingling. Review Of Systems: A total of 10 systems were reviewed and are significant only for below stated conditions. Family history: Noncontributory. Parents are . Social history: . Retired. No tobacco use. No EtOH use. Past Medical History: Problems: Arthritis of left hip Cerumen impaction HTN Osteoporosis Swallowing dysfunction Caregiver stress Cardiac pacemaker Osteoarthritis of left hip S/P total knee arthroplasty Hearing loss Ankle edema Osteoarthritis of knees, bilateral Suspected DVT (deep vein thrombosis) Leg swelling Loss of weight Generalized osteoarthritis Left knee pain Suprapatellar bursitis of left knee Back pain with right-sided sciatica Oral ulceration Boil of groin Atypical chest pain Dysphagia Osteopenia Dyspnea Hernia, inguinal Female cystocele Prolapsed urethral mucosa PMB (postmenopausal bleeding) Benign skin lesion of nose Spinal stenosis of lumbar region with radiculopathy History of lumbar fusion Sacroiliitis Chronic SI joint pain Hemangioma of liver Cyst, ovarian Urinary tract infection Edema Left axis deviation Post-menopausal H/O hypercholesterolemia H/O thyroid nodule Leukopenia History of colon polyps Syncope Procedure History Procedure Procedure Date Comments Complete heart block Hernia - repair 2019 Total knee arthroplasty 08/10/2023 - Right Mammogram 01/26/2022 - No mammographic evidence of malignancy. 1 year screening is recommended. Mammogram 01/22/2021 - IMPRESSION: ACR BI-RADS CATEGORY 2: BENIGNThere is no mammofraphic evidence of malignancy. A 1 year screening mammogram is recommended. (01/23/2022) The patient will receive written notification ofthe results. Mammogram 01/18/2019 - IMPRESSION: ACR BI-RADS CATEGORY 2: BENIGNThere is no mammographic evidence of malignancy. A 1 years screening mammogram is recommended. (01/19/2020) The patient will receive written notification of the ressults. CT of orbits 04/18/2018 - Normal posterior fossa. No evidence for choesteatoma or CP angle cistern lesion. DEXA (dual energy X-ray photon absorptiometry) scan of lateral spine 03/15/2018 - T-scores : spine 0.3; L femur neck -2.0; R femur neck -2.4; total femur -2.1. FRAX scores : majorosteoporotic fx 18.1%, hip fx 6.0%. Repair of inguinal hernia 01/27/2018 - [facility] Mammogram 01/17/2018 - There is no mammographic evidence of malignancy. 1 year screening mammogram is recommended. Mammogram 01/13/2017 - There is no mammographic evidence of malignancy. 1 year screening is recommended. Cystoscopy 06/17/2016 Anterior colporrhaphy 06/17/2016 Hysterectomy 06/17/2016 Uterosacral ligament 06/17/2016 Dilation and curettage of uterus 02/26/2016 - ECC: inflammation, endometrium : benign proliferative endometrium with breakdown, enometrial polyp : benign proliferative endoemtrium. Proliferative endometrium unusual for post-menopausal woman, but no hyperplasia or cancer seen. Hysteroscopy 02/26/2016 Polypectomy 02/26/2016 - endometrial Mammogram 01/14/2016 - There is no mammographic evidence of malignancy. A 1 year screening mammogram is recommended - No malignancy. One year screening recommended. Ultrasound of pelvis 01/13/2016 - [facility] CneterImpression:1. Slight enlargement in the complex left ovaarian cyst currently measuring 25 mm2. Abnormal fluid filled endometrial cavity measuring 1 cm. in thickness. [facility]erv[facility]/endocervixNegative for intraepithelial lesion or malignancy Injection of sacroiliac joint using fluoroscopic guidance 01/09/2015 - [facility] Ultrasound scan of abdomen and pelvis 08/13/2014 - A 1.7 cm slightly complex left ovarian cyst dimished in maximum dimension from a prior CT study of 06/11/2014 measuring 2.5cm on the prior exam. CT of abdomen and pelvis 06/11/2014 - 1. There are no acute infectous or inflammatory findings in the abdomen or pelvis.2. Cardiomegalyand cardiac pacemaker.3. Small to moderate hiatal hernia.4. There are at least 3 lobulated low attenuation lover lesions. These are unchanged dating back to a 2012 abdominal ultrasound and are typical in appearane for hfemangiomas.5. There is a 2.5cm cystic lesion in the left ovary. This is of low suspicion, but a followup nonemergent pelvic ultrasound is recommended for further evaluation.6. Additional changes as above. Papanicolaou smear 02/16/2014 Mammogram - screening 11/09/2012 cholecystectomy 08/14/2012 Colonoscopy 04/05/2009 - benign polyps, due in 2015 Laminectomy 12/16/2005 thyroid nodule removed 04/05/1978 left middle ear reconstruction 04/05/1975 Allergies and Sensitivities: Mobic(bloating) Current Home Meds: (Last Updated 03/21 15:07) amoxicillin (amoxicillin 500 mg oral capsule) 2,000 mg PO As indicated one hour before dental and other procedures as directed ascorbic acid (Vitamin C 500 mg oral tablet) 1 tab PO Daily calcium and vitamin D combination (Calcium 600+D) PO tid cholecalciferol (Vitamin D3 1000 intl units oral tablet) 1,000 Int_Unit PO Daily docusate (Dulcolax Stool Softener) 100 mg PO Daily gabapentin (gabapentin 300 mg oral capsule) 1 cap PO Daily glucosamine (glucosamine hydrochloride 1500 mg oral tablet) 1,500 mg PO Daily hydroCHLOROthiazide (hydroCHLOROthiazide 25 mg oral tablet) 1 tab PO Daily latanoprost ophthalmic (latanoprost 0.005% ophthalmic solution) 1 drop both eyes qhs Store intact bottles under refrigeration. Once opened, the container may be stored at room temperature for 6 weeks. [place] Hernandes 07/18 10:41 multivitamin with minerals (PreserVision AREDS 2) multivitamin 1 tab PO Daily ocular lubricant (Systane Complete Preservative Free Dry Eye Relief) 2 drop both eyes qid polyethylene glycol 3350 (MiraLax oral powder for reconstitution) 17 g PO Daily traMADol (Ultram 50 mg oral tablet) 50 mg PO q8h PRN: as needed for pain for severe pain not responding to tylenolnot to exceed 400 mg/day Vitals: Last Updated 03/21/24 14:02 Weights: Last Updated 03/21/24 14:02 Date Temp Pulse BP RR SpO2 FIO2 Date Wt(kg) Wt(lb) 03/21 14:02 36.4 162/78 24 98 03/21 14:02 57.0 125 03/21 14:02 57.0 125 24 Hr Tmax: No Data Available Initial Wt: 03/21 57.0 kg 125 lb Physical Exam: (relevant to the procedure, including heart and lung evaluation) General: General: Well-developed, well-nourished, elderly female, in no acute distress. Sitting in a chair. Alert and oriented. HEENT: Normocephalic, atraumatic. Eyes PERRLA, EOMI. Nares patent bilaterally without nasal drainage. Oropharynx with moist oral mucosa. Full upper denture plate. Partial lower denture plate. Neck: No JVD. Cardiac: RRR. No GR. Soft systolic ejection murmur is noted at the left sternal border. Peripheral pulses are 2+. Lungs: Clear to auscultation bilaterally. No crackles, rhonchi, or wheezing. Good air movement. Abdomen: Bowel sounds present x 4. Soft nontender. No organomegaly. No masses. Extremities: Left hip evaluation reveals no obvious asymmetry or deformity. Ambulating today with an antalgic gait. There is limited hip motion. Flexion to 90 degrees, external rotation of 30 degrees, internal rotation to neutral. There is no pain with palpation over the IT band or greater trochanter. She does have discomfort with palpation over the anterior flexion crease. Ambulating today with an antalgic gait using her cane. Neuro: Gross sensation is intact across both lower extremities by soft touch. Skin: Warm dry with good turgor. No rashes. No ecchymosis. Pacemaker is palpable under the left anterior chest wall. Studies of radiology results (relevant to the procedure): Radiographic imaging previously obtained shows end-stage DJD of the left hip. Periarticular osteophytes, subchondral sclerosis, and joint space narrowing are all present. ASSESSMENT: Left hip end-stage DJD Plan: Approximate 30 minutes was spent with the patient and her reviewing operative procedure, postoperative recovery, physical therapy requirements, and medication use. She already has a raised toilet seat at home. She has a walker and cane at home. She already has a agent contract clerk as well. She has seen PAT and obtained preoperative lab work, EKG, and chest x-ray. She is seeing her PCP for medical clearance later today. She already had cardiac clearance from Dr. Irizarry. PDMP was checked and there are no concerning findings. She is currently asymptomatic of any COVID-19 or influenza symptoms.Postoperative follow-up appointment has been made for April 19 with Chavez DELAROSA. She will use aspirin 81 mg twice daily postoperatively for DVT prophylaxis. The patient states that she plans on doing in-home physical therapy for the first 2 weeks postoperatively before transitioning to outpatient physical therapy at [facility] in [place]. This dictation has been completed using Yotpo text voice recognition software. Grammatical errors, omissions, insertions, and misspellings may be present due to the limitations of the software. Electronic Signature on File Electronically Reviewed/Signed by: Prakash Mcbride PA-C Author Signature Dt/Tm:03/22/2024 06:50 PM Division of Sports Medicine Electronically Reviewed/Signed by: Prakash Mcbride PA-C Cosigner Signature Dt/Tm: 03/22/2024 06:51PM Division of Sports Medicine Electronically Reviewed/Signed by: Sergey David MD Cosigner Signature Dt/Tm: 03/23/2024 04:59PM Division of Sports Medicine CDS Patient Care team information Care Team Personnel Name: MD Michelle, Kathryn Durand Position: Physician - Family Med Member Role: Primary Care Provider Address: [address] [place] [id number] [place] Care Team Related Persons Name: CECY GUO Name: SENA ANTHONY
[2024-04-06] MEDS: LR 500ML BOLUS, THEN 15ML/HR IV SCH (08:29)
[2024-04-06] MEDS: Scopolamine 1 MG TDSY TD SCH (08:29)
[2024-04-06] MEDS: dexAMETHasone**PF** 10 MG/ML VIAL IV SCH (08:29)
[2024-04-06] MEDS: ACETAMINOPHEN 500 MG TAB PO SCH ×2 (08:29→14:37)
[2024-04-06] MEDS: traMADol HCL 50 MG TABLET PO SCH (08:30)
[2024-04-06] MEDS: LR 60ML/HR IV SCH (08:30)
[2024-04-06] MEDS ORDERED: fentaNYL citrate PF 100 MCG/2 ML VIAL IV PRN (08:40)
[2024-04-06] MEDS ORDERED: ePHEDrine sulfate 50 MG/ML AMP IV PRN (08:40)
[2024-04-06] MEDS ORDERED: fentaNYL citrate PF 100 MCG/2 ML VIAL ONE (08:40)
[2024-04-06] MEDS ORDERED: ATROPINE SULFATE 0.1 MG/ML 10ML SYR IV PRN (08:40)
[2024-04-06] MEDS ORDERED: ONDANSETRON INJ 2 MG/ML 2 ML VIAL IV PRN ×2 (08:40→12:20)
[2024-04-06] MEDS ORDERED: MIDAZOLAM HCL 1 MG/ML 2ML VIAL ONE (09:26)
[2024-04-06] MEDS ORDERED: PROPOFOL IV EMULSION 10 MG/ML 20 ML VIAL IV ONE ×2 (09:35→10:43)
--- NOTE | 2024-04-06 09:48 | History & Physical Bridge Note ---
Date of Service April 06, 2024 History & Physical Bridge Note I have examined the patient, reviewed the History & Physical and in the interval since the performance of the History & Physical I have noted the following changes of clinical significance: her tailbone pain from the sacrum fracture has completely subsided. Otherwise, no changes noted
[2024-04-06] MEDS: TRANEXAMIC ACID 1,000 MG **IV Pre-op IV SCH (09:54)
[2024-04-06] MEDS: ceFAZolin 2000MG 2,000 MG/15 ML SYR IV SCH ×2 (10:23→18:23)
[2024-04-06] MEDS: ROPIV 0.5% 246mg, Ketorolac 30mg, EPINEPHrine 0.5mg in NSS INFIL SCH (10:55)
[2024-04-06] MEDS: ORTHO JOINT ANESTHETIC ONE (10:55)
[2024-04-06] MEDS: TRANEXAMIC ACID 1,000 MG **IV Intra-op IV SCH (11:46)
--- NOTE | 2024-04-06 12:19 | Operative Report ---
Post Operative Report Pre & Post Diagnosis Operation Date: 04/06/24 10:05 Pre-Op Diagnosis: Left Hip Osteoarthritis Post-Op Diagnosis: Left Hip Osteoarthritis I identified the patient and participated in the time-out.: Yes Procedure Operation Date: 04/06/24 10:05 Actual Procedures p Left Total Hip Arthroplasty, Cemented(Left) - Sergey David MD Surgeon Sergey David MD Oil Heat Technician Adelso Byrne PAShasta Estimated Blood Loss 50 Findings Consistent with Post-Op Diagnosis Specimens femoral head Description of Procedure I was present during the entire case assisting with positioning, prepping, draping, wound retraction, wound closure, dressing and abduction pillow placement. No fellow present. Please see Dr. David procedure note for speciifcs of the case. I attest to the content of the Intraoperative Record and any orders documented therein. Any exceptions are noted below.
[2024-04-06] MEDS ORDERED: diphenhydrAMINE 50 MG/ML VIAL IV PRN (12:20)
[2024-04-06] MEDS ORDERED: NALOXONE HCL 0.4 MG/1 ML VIAL/CARP IV PRN (12:20)
[2024-04-06] MEDS ORDERED: bisacodyL 10 MG SUPP PR PRN (12:20)
[2024-04-06] MEDS ORDERED: METOCLOPRAMIDE HCL INJ 5 MG/ML 2 ML VIAL IV PRN (12:20)
[2024-04-06] MEDS ORDERED: ALUMINUM/MAGNESIUM SUSP 30 ML UDC PO PRN (12:20)
[2024-04-06] MEDS ORDERED: MAGNESIUM HYDROXIDE SUSP 30 ML UDC PO PRN (12:20)
--- NOTE | 2024-04-06 12:23 | Operative Report ---
Post Operative Report Pre & Post Diagnosis Operation Date: 04/06/24 10:05 Pre-Op Diagnosis: Left Hip Osteoarthritis Post-Op Diagnosis: Left Hip Osteoarthritis I identified the patient and participated in the time-out.: Yes Procedure Operation Date: 04/06/24 10:05 Actual Procedures p Left Total Hip Arthroplasty, Cemented(Left) - Sergey David MD Surgeon Sergey David MD Signal Person MILTON Byrne PA-C. No resident or fellow was available to assist. Estimated Blood Loss 50 Findings Consistent with Post-Op Diagnosis Specimens Left femoral head Anesthesia Type Spinal MAC Complications none Disposition Disposition: Recovery Room Indications 84-year-old female with left hip osteoarthritis refractory to conservative management. X-rays demonstrate [id number] disease. I had a long discussion with her about the risks and benefits of surgery, alternatives to surgery, and expected outcomes. After reviewing all these she elected to proceed with surgery. All questions were answered. Informed consent was signed. Description of Procedure Patient was identified in the preoperative holding area where the surgical site, left hip, was marked. A spinal anesthetic was placed, then the patient was brought back to the main operating room, placed in the operating table and moved into the lateral decubitus position. Axillary roll was placed. All bony prominences were padded. Perioperative antibiotics and tranexamic acid 1 gram IV were administered. The operative extremity was prepped and draped in the normal sterile fashion. Prior to incision a multidisciplinary timeout was called. All in the room were in agreement. We began by making an incision for a posterior approach to the hip. We dissected down through subcutaneous tissues to the level of the fascia. The fascia was incised in line with the incision. Charnley bow was placed. Fatty tissue was reflected posteriorly off the back of the greater trochanter to expose the piriformis and short external rotators of the hip. Quadratus femoris was taken off the femur subperiosteally. The piriformis and short external rotators were dissected off the posterior aspect of the hip. A box cut was made in the capsule. Inferior hip capsule was released off the femur. The femoral head was dislocated. The femoral neck cut was made at our preoperative template. The acetabulum was then exposed. The labrum was sharply excised. Contents of the cotyloid fossa were removed with electrocautery. We then began reaming at a size 8 mm less than our preoperative template. We reamed up by 1 [address] the way up to a size 56 mm cup. This gave us good bleeding cancellus bone circumferentially. The acetabulum was then irrigated out and dried. Cancellous bone from the reamings were packed into the acetabulum to facilitate healing. The apex of eliminator was then placed. The liner for dual mobility cup was then impacted into the shell. We checked to ensure that the Mendoza taper had engaged which was confirmed. Next we turned our attention to the femur. The lateral neck was removed with a box osteotome. Intramedullary guide was used to establish the intramedullary canal. Lateralizing reamer was used. We then broached all the way up to a size 3 [place] stem. We began trialing with a standard offset neck and a +1.5 head. Hip was reduced. Leg lengths were symmetric. The hip was stable in extension and external rotation, and stable in the sleeper position. At 90 degrees of hip flexion the hip could be internally rotated 75 degrees before levering out of the cup. I was very happy with the stability exam. Therefore the hip was dislocated and the femoral trial was removed. The acetabulum was re-exposed and irrigated out to ensure there was no interposed soft tissue. The femur was re-exposed. The femoral canal was irrigated and dried. Cement restrictor was placed to the appropriate depth. A brush was used to remove any loose bony fragments from the femoral canal. Femoral canal was irrigated and dried. Cement was mixed on the back table. Cement was then injected in the intramedullary canal and I pressurized this with my thumbs. The size 3 standard offset [place] femoral component was then opened up and inserted into the cement and held at approximately 15 degrees of anteversion while the cement cured. Excess cement was removed. Once the cement was completely dried, the bipolar dual mobility femoral head was opened up and assembled on the back table. It was then gently impacted down onto the trunnion and checked to ensure a good press-fit between the trunnion and the femoral head which was confirmed. The hip was atraumatically reduced. Another 1 gram of IV tranexamic acid was started prior to closure. The wound was irrigated out with sterile Betadine solution. The periarticular injection cocktail was then placed. The short external rotators, piriformis, and posterior capsule were repaired through drill holes in the greater trochanter u sing #2 Vicryl. The fascia was run with a looped #1 PDS. The subcutaneous layer was closed with #1 PDS. The dermal layer was closed with 2-0 Vicryl. Zip line was used for the skin followed by a Silverlon dressing. A compressive dressing was then placed. The patient was then rolled supine. Leg lengths were rechecked and were symmetric. An abduction pillow was placed. Sedation was lifted and the patient was transferred to the recovery room in stable condition. Summary of implants: Depuy [place] Gription Acetabular Shell Sector Cup, 56 mm outer diameter 2 [place] Cancellous bone screws, 6.5 x 40 and 20 mm respectively [place] hole eliminator 56/49 metal dual mobility liner DePuy [place] collared cemented Femoral stem, 12/14 taper, size 3 standard offset [place] Altrx Polyethylene 49/28 outer dual mobility head 28 mm ceramic femoral head with +1.5 offset Postoperative course: Patient will be admitted overnight from the recovery room. Patient will be weightbearing as tolerated with posterior hip precautions. Aspirin for DVT prophylaxis I attest to the content of the Intraoperative Record and any orders documented therein. Any exceptions are noted below.
--- NOTE | 2024-04-06 13:11 | XRay Report ---
XR pelvis 1-2V routine CLINICAL HISTORY: Postoperative evaluation. COMPARISON: Pelvis CT March 08, 2024. FINDINGS: Alignment of the total left hip arthroplasty is anatomic. There is no periprosthetic fract ure or unexpected radiopaque foreign body. Postoperative findings within the spine are partially imag ed. IMPRESSION: Expected findings following total left hip arthroplasty. ACT 112: Negative or not required by law. Electronically signed by: Mike Garcia M.D. 04/06/2024 1:10 PM
[2024-04-06] MEDS: ALLERGY Noted to ORDERED Medication SCH (14:09)
[2024-04-06] MEDS: FAMOTIDINE 20 MG TAB PO SCH (14:10)
[2024-04-06] MEDS ORDERED: ARTIFICIAL TEARS OP PRN (14:17)
--- NOTE | 2024-04-06 15:24 | Anesthesiology Progress Note ---
Date of Service April 06, 2024 Anesthesia Post Procedure Vital Signs Vital Signs: Temp Pulse Pulse Resp BP BP Pulse Ox 04/06/24 15:00 36.5 C 101 H 16 165/73 H 98 04/06/24 14:30 36.7 C 80 17 167/74 H 94 04/06/24 14:00 36.4 C L 90 16 173/76 H 96 04/06/24 13:40 77 16 148/76 H 98 04/06/24 13:25 77 15 149/76 H 98 04/06/24 13:10 78 16 149/79 H 97 04/06/24 12:55 36.2 C L 72 18 148/72 H 98 04/06/24 12:45 77 18 149/68 H 98 04/06/24 12:35 79 14 134/71 97 04/06/24 12:25 74 14 144/76 H 100 04/06/24 12:17 36.0 C L 72 15 111/86 99 04/06/24 08:17 36.8 C 80 18 185/90 H 185/100 H 96 O2 Del Method O2 Flow Rate 04/06/24 15:00 Room Air 04/06/24 14:30 Room Air 04/06/24 14:00 Room Air 04/06/24 13:40 Room Air 04/06/24 13:25 Room Air 04/06/24 13:10 Room Air 04/06/24 12:55 Room Air 04/06/24 12:45 Room Air 04/06/24 12:35 Room Air 04/06/24 12:25 Oxymask 5 04/06/24 12:17 Oxymask 5 04/06/24 08:17 Room Air Transfer of Care Handoff Completed per policy Notes Mental Status: alert / awake / arousable Patient Amnestic to Procedure: Yes Nausea / Vomiting: adequately controlled Pain: adequately controlled Airway Patency, RR, SpO2: stable & adequate BP & HR: stable & adequate Hydration State: stable & adequate Neuraxial Anesthesia: was administered and sensory block is resolving Anesthetic Complications: no major complications apparent
[2024-04-06] MEDS: Scopolamine CHECK PATCH PLACEMENT SCH (15:54)
[2024-04-06] MEDS: KETOROLAC TROMETHAMINE 15 MG/ML VIAL IV SCH (15:54)
[2024-04-06] MEDS: LATANOPROST 0.005% OP SOLN 2.5 ML BTL OPB SCH (20:35)
[2024-04-06] MEDS: SENNA 8.6 MG TAB PO SCH (20:35)
[2024-04-06] MEDS: DOCUSATE SODIUM 100 MG CAP PO SCH (20:35)
[2024-04-06] MEDS: CHOLECALCIFEROL 25 MCG (1000 UNITS) TAB PO SCH (20:35)
[2024-04-06] MEDS: GABAPENTIN 300 MG CAP PO SCH (20:35)
[2024-04-06] MEDS ORDERED: NON-FORMULARY MEDICATION (Docusate Sodium [Stool Softener] 250 mg Capsule) PO SCH (21:00)
[2024-04-06] MEDS ORDERED: NON-FORMULARY MEDICATION (Glucos Sul 2kcl-Msm-Chond-C-Mn [Glucosamine Chondroitin] 550-30- PO SCH (21:00)
[2024-04-06] MEDS ORDERED: ASPIRIN 81 MG ECTAB PO SCH (21:00)
[2024-04-06] MEDS: oxyCODONE HCL IR 5 MG TAB (IMMEDIATE RELEASE) PO PRN (23:09)
[2024-04-07 07:09] VITALS: BP 115/69; PULSE 66; RESP 16; TEMP 98.2; O2SAT 96
[2024-04-07] MEDS ORDERED: NON-FORMULARY MEDICATION (Multivitamin [Multiple Vitamins] Tablet) PO SCH (09:00)
--- NOTE | 2024-04-07 09:30 | Orthopedic Progress Note ---
Date of Service April 07, 2024 Assessment & Plan (1) S/P total left hip arthroplasty: Plan: Total hip precautions reviewed Weightbearing as tolerated with walker assistance Abduction pillow use x 6 weeks Ice with easy wrap Keep Silverlon dressing in place DVT prophylaxis with aspirin and KENNETH stockings Plan is to discharge home later today with in-home therapy Pain controlled p.o. medication Follow-up with [facility] orthopedics as previously scheduled With questions contact our clinic at [phone] Admission and Anticipated Discharge Date Admission Date: April 06, 2024 Subjective This 84-year-old female is day 1 status post left total hip arthroplasty. Patient states she is doing very well. She states she has no pain at present. She states that over the night she did have a dose of oxycodone. She has been working on lifting her leg and moving her foot. Currently she denies chest pain, shortness of breath, fever, chills, sweats, nausea, vomiting, diarrhea, difficulty voiding, numbness or tingling in her left lower extremity. Review of Systems Review of Systems: All systems reviewed & are unremarkable except as noted in Subjective Physical Exam Physical Exam: Left hip: Outer dressing was removed. Silverlon is clean dry and intact and left in place. Patient is able to perform active straight leg raise test. She is able to actively dorsi and plantarflex her foot. She has no discomfort with logroll testing. She tolerates light passive hip flexion to 80 degrees and only feels a slight tugging sensation with passive internal rotation. She has no discomfort with external rotation. She is neurovascularly intact. Quad strength is 4/5 Results & Data Vital Signs (Past 12 Hours) Vital Signs Temp Pulse Resp BP Pulse Ox O2 Del Method 04/07/24 07:07 36.8 C 66 16 115/69 96 Room Air 04/07/24 03:00 36.4 C L 74 14 125/75 93 Room Air 04/06/24 23:05 36.6 C 77 14 137/78 96 Room Air Diagnostic Findings Impressions Pelvis X-Ray 04/06/24 12:20 XR pelvis 1-2V routine CLINICAL HISTORY: Postoperative evaluation. COMPARISON: Pelvis CT March 08, 2024. FINDINGS: Alignment of the total left hip arthroplasty is anatomic. There is no periprosthetic fracture or unexpected radiopaque foreign body. Postoperative findings within the spine are partially imaged. IMPRESSION: Expected findings following total left hip arthroplasty. ACT 112: Negative or not required by law. Electronically signed by: Mike Garcia M.D. 04/06/2024 1:10 PM
[2024-04-07] MEDS: ASPIRIN 81 MG ECTAB PO SCH (09:31)
[2024-04-07] MEDS: ASCORBIC ACID 500 MG TAB PO SCH (09:31)
[2024-04-07] MEDS: CALCIUM 600MG + VIT D 400 IU TAB PO SCH (09:31)
[2024-04-07] MEDS: hydroCHLOROthiazide 25 MG TAB PO SCH (09:31)
[2024-04-07] MEDS: POLYETHYLENE (MIRALAX) 17 GM PACK PO SCH (09:31)
[2024-04-07] MEDS: MULTIVITAMIN TAB PO SCH (09:32)
[2024-04-07] MEDS: dexAMETHasone 4 MG TAB PO SCH (09:32)
--- NOTE | 2024-04-07 09:40 | Discharge Summary ---
Date of Service April 07, 2024 Admission HPI Per Admitting Provider History of Present Illness (including history relevant to procedure): This 83-year-old female presents the clinic today for preoperative history and physical. Patient complains of eft hip pain which she started noticing after she had right TKA in 08/2023. The pain sometimes travels into the thigh. She ambulates with a cane at home. No pain at rest, and no problems sleeping. She walks less than a block. 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 She has had injections in the past, but they did not help alleviate her pain. Due to failing conservative management. Patient is elected proceed with surgical invention. Review Of Systems: A 12 point review of systems is performed and is unremarkable except for those things stated in the HPI past medical history. Past Medical History: Problems: Arthritis of left hip Cerumen impaction HTN Osteoporosis Swallowing dysfunction Caregiver stress Caregiver stress Cardiac pacemaker Osteoarthritis of left hip S/P total knee arthroplasty Hearing loss Ankle edema Osteoarthritis of knees, bilateral Right knee pain Annual physical exam Breast cancer screening Impacted cerumen of both ears Suspected DVT (deep vein thrombosis) Leg swelling Loss of weight Loss of weight Generalized osteoarthritis Left knee pain Left leg pain Suprapatellar bursitis of left knee Back pain with right-sided sciatica Oral ulceration Boil of groin Atypical chest pain Dysphagia Osteopenia Dyspnea Hernia, inguinal Post-operative state Female cystocele Prolapsed urethral mucosa Preop examination PMB (postmenopausal bleeding) Benign skin lesion of nose Spinal stenosis of lumbar region with radiculopathy History of lumbar fusion Sacroiliitis Chronic SI joint pain Hemangioma of liver Cyst, ovarian Flank pain Urinary tract infection Prophylactic administration of vaccine against other diseases Edema ROUTINE GENERAL MEDICAL EXAMINATION AT A HEALTH CARE FACILITY Left axis deviation Post-menopausal DJD (degenerative joint disease) H/O thyroid nodule H/O hypercholesterolemia Leukopenia History of colon polyps Syncope Procedure History Procedure Procedure Date Comments Complete heart block Hernia - repair 2019 Total knee arthroplasty 08/10/2023 - Right Mammogram 01/26/2022 - No mammographic evidence of malignancy. 1 year screening is recommended. Mammogram 01/22/2021 - IMPRESSION: ACR BI-RADS CATEGORY 2: BENIGNThere is no mammofraphic evidence of malignancy. A 1 year screening mammogram is recommended. (01/23/2022) The patient will receive written notification of the results. Mammogram 01/18/2019 - IMPRESSION: ACR BI-RADS CATEGORY 2: BENIGNThere is no mammographic evidence of malignancy. A 1 years screening mammogram is recommended. (01/19/2020) The patient will receive written notification of the ressults. CT of orbits 04/18/2018 - Normal posterior fossa. No evidence for choesteatoma or CP angle cistern lesion. DEXA (dual energy X-ray photon absorptiometry) scan of lateral spine 03/15/2018 - T-scores : spine 0.3; L femur neck -2.0; R femur neck -2.4; total femur - 2.1. FRAX scores : major osteoporotic fx 18.1%, hip fx 6.0%. Repair of inguinal hernia 01/27/2018 - [facility] Mammogram 01/17/2018 - There is no mammographic evidence of malignancy. 1 year screening mammogram is recommended. Mammogram 01/13/2017 - There is no mammographic evidence of malignancy. 1 year screening is recommended. Cystoscopy 06/17/2016 Anterior colporrhaphy 06/17/2016 Hysterectomy 06/17/2016 Uterosacral ligament 06/17/2016 Dilation and curettage of uterus 02/26/2016 - ECC: inflammation, endometrium : benign proliferative endometrium with breakdown, enometrial polyp : benign proliferative endoemtrium. Proliferative endometrium unusual for post-menopausal woman, but no hyperplasia or cancer seen. Hysteroscopy 02/26/2016 Polypectomy 02/26/2016 - endometrial Mammogram 01/14/2016 - There is no mammographic evidence of malignancy. A 1 year screening mammogram is recommended - No malignancy. One year screening recommended. [facility] Slight enlargement in the complex left ovaarian cyst currently measuring 25 mm2. Abnormal fluid filled endometrial cavity measuring 1 cm. in thickness. [facility] reportCervix/endocervixN egative for intraepithelial lesion or malignancy Injection of sacroiliac joint using fluoroscopic guidance 01/09/2015 - [facility] Ultrasound scan of abdomen and pelvis 08/13/2014 - A 1.7 cm slightly complex left ovarian cyst dimished in maximum dimension from a prior CT study of 06/11/2014 measuring 2.5cm on the prior exam. CT of abdomen and pelvis 06/11/2014 - 1. There are no acute infectous or inflammatory findings in the abdomen or pelvis.2. Cardiomegaly and cardiac pacemaker.3. Small to moderate hiatal hernia.4. There are at least 3 lobulated low attenuation lover lesions. These are unchanged dating back to a 2012 abdominal ultrasound and are typical in appearane for hfemangiomas.5. There is a 2.5cm cystic lesion in the left ovary. This is of low suspicion, but a followup nonemergent pelvic ultrasound is recommended for further evaluation.6. Additional changes as above. Papanicolaou smear 02/16/2014 Mammogram - screening 11/09/2012 cholecystectomy 08/14/2012 Colonoscopy 04/05/2009 - benign polyps, due in 2014 Laminectomy 12/16/2005 thyroid nodule removed 04/05/1978 left middle ear reconstruction 04/05/1975 Allergies and Sensitivities: Mobic(bloating) Current Home Meds: (Last Updated 02/21 13:50) amoxicillin (amoxicillin 500 mg oral capsule) 2,000 mg PO As indicated one hour before dental and other procedures as directed ascorbic acid (Vitamin C 500 mg oral tablet) 1 tab PO Daily aspirin (aspirin 81 mg oral capsule) calcium and vitamin D combination (Calcium 600+D) PO tid cholecalciferol (Vitamin D3 1000 intl units oral tablet) 1,000 Int_Unit PO Daily docusate (Dulcolax Stool Softener) 100 mg PO Daily gabapentin (gabapentin 300 mg oral capsule) 1 cap PO Daily glucosamine (glucosamine hydrochloride 1500 mg oral tablet) 1,500 mg PO Daily hydroCHLOROthiazide (hydroCHLOROthiazide 25 mg oral tablet) 1 tab PO Daily latanoprost ophthalmic (latanoprost 0.005% ophthalmic solution) 1 drop both eyes q Store intact bottles under refrigeration. Once opened, the container may be stored at room temperature for 6 weeks. [place] Hernandes 07/18 10:41 multivitamin with minerals (PreserVision AREDS 2) multivitamin 1 tab PO Daily ocular lubricant (Systane Complete Preservative Free Dry Eye Relief) 2 drop both eyes qid polyethylene glycol 3350 (MiraLax oral powder for reconstitution) 17 g PO Daily Initial Wt: 02/21 57.0 kg 125 lb Admission Exam Per Admitting Provider Physical Exam: (relevant to the procedure, including heart and lung evaluation) General: Alert and oriented x 3 with proper grooming and hygiene Eyes: Pupils are equal and reactive to light with accommodation. Extraocular movements are intact Throat: Posterior pharynx clear with absence of edema, erythema or exudate. Lower dentition is appropriate. Upper dentures Cardiac: Regular rate and rhythm with no murmurs or gallops appreciated Lungs: Clear to auscultation throughout with no wheezing, rales or rhonchi Abdomen: Nonobese, nondistended, nontender with NABS Extremities: Left hip; patient experiences tenderness to palpation in the groin and over the trochanteric bursa. Straight leg raise test is positive. Logroll test is positive. Stinchfield test is positive. Impingement tests positive. Flexion is limited to 90 degrees, internal rotation to 5 degrees and external rotation to 30 degrees. Patient ambulates with the assistance of a cane with antalgic gait Neuro: Cranial nerves II through XII are intact no motor or sensory deficit Skin: Normal in appearance with no open skin areas or discharge Principal Diagnosis Left hip osteoarthritis Discharge Exam Left hip: Outer dressing was removed. Silverlon is clean dry and intact and left in place. Patient is able to perform active straight leg raise test. She is able to actively dorsi and plantarflex her foot. She has no discomfort with logroll testing. She tolerates light passive hip flexion to 80 degrees and only feels a slight tugging sensation with passive internal rotation. She has no discomfort with external rotation. She is neurovascularly intact. Quad strength is 4/5 Discharge Data Allergies Allergy/AdvReac Type Severity Reaction Status Date / Time meloxicam AdvReac Intermediate Swelling- Verified 04/06/24 08:11 stomach Procedures Performed Operation Date: 04/06/24 10:05 Actual Procedures p Left Total Hip Arthroplasty, Cemented(Left) - Sergey David MD Hospital Course (1) S/P total left hip arthroplasty: Patient had an uneventful overnight stay following left total hip arthroplasty. She is doing very well this morning. She is pain-free. She is okay to be discharged home later this morning. She plans on staying with her daughter. She will be doing home physical therapy for the first 2 weeks postoperatively. Total hip precautions reviewed Weightbearing as tolerated with walker assistance Abduction pillow use x 6 weeks Ice with easy wrap Keep Silverlon dressing in place DVT prophylaxis with aspirin and KENNETH stockings Plan is to discharge home later today with in-home therapy Pain controlled p.o. medication Follow-up with [facility] orthopedics as previously scheduled With questions contact our clinic at [phone] Total Time Total Time Spent Total Time Spent (In Minutes): 25 mins Discharge Plan Discharge Items Patient Disposition: Home - Home Health Services Reason For Visit: POST SURGICAL CARE Discharge Diagnosis: s/p Left total hip arthroplasty (cemented) Activity: As commented below Lifting: None Bathing: Keep incision dry Bathing Comment: May shower later today Sexual Activity: Wait until after follow-up appointment Exercise/Sports: Wait until after follow-up appointment Driving/Machine Use: No driving until cleared by program support specialist Weightbearing: Left weightbearing Weightbearing Comment: As tolerated with walker assistance Non-emergency contact: Surgeon Call non-emergency contact if: you have any medication questions, your pain is not controlled, your temperature is above 101.5, your wound has increased drainage and your wound pain has increased Follow-up/Referrals: Kathryn Martinez MD [Primary Care Provider] - Diet: Regular Addtl Attending Provider Instructions: Post-operative Instructions Dear Patient and Family/Friends, Before you are discharged from the hospital, it is important to know what to expect when you get home after surgery. To that end, we have created this sheet of discharge instructions which covers many commonly asked questions. Make sure you go through this sheet in its entirety with your nurse before you are discharged. Please note that we will go over the specifics of your surgery and recovery when you return for your first post-operative visit. Sincerely, Dr. David Medications 1. Oxycodone 5 mg: Take 1-2 tabs every 4-6 hours as needed for postoperative pain control. A prescription for this medication was sent to your pharmacy. 2. Diclofenac sodium 75 mg: Take 1 tab twice daily for the first 30 days postoperatively for pain and inflammation relief. This will also be sent to your pharmacy with a refill. 3. Aspirin 81 mg: Take 1 tab twice daily for the first 30 days postoperatively for blood clot prevention. Please purchase this medication. 4. Extra strength Tylenol 500 mg: Take 2 tabs every 6-8 hours as needed for additional supplemental pain control. Please purchase the medication. Pain Expect to be in a fair amount of pain after surgery. Remember, our goal is not to eliminate your pain, but to make it tolerable. It is a good idea to stay ahead of your pain by taking the medications you were prescribed once you get home. Typically, the pain starts improving 3-7 days after surgery. You should start weaning off the narcotic pain medication (oxycodone, hydrocodone, hydromorphone, morphine) as soon as your pain improves. Please call our office i f your pain is not adequately controlled. Ice Ice your operative site at least 5 times a day for 15-30 minutes at a time. Make sure you have a thin cloth between the ice or cooling unit and your skin to prevent elam bite. This is especially important if you received a nerve block. Continue icing your operative site for the first 5-7 days after surgery, then as needed. Diet/Nausea/Vomiting Start by drinking clear liquids and eating crackers. If you can tolerate this, then you may resume your normal diet. If you feel nauseated or vomit, take Zofran/ondansetron (if prescribed). Please call our office if you have intractable nausea or vomiting, or, if after hours, you may go to the Emergency Room for help. Constipation Constipation is a common side effect of narcotic pain medication. If you have not had a bowel movement within 2 days after surgery, we recommend purchasing an over the counter laxative such as Milk of Magnesia, Dulcolax, or Miralax from a local pharmacy, and taking it as instructed. Call our clinic if any questions. Nerve block The anesthesia team sometimes places a nerve block to help with post-operative pain control. This results in significant numbness and inability to move the extremity. The nerve block usually wears off in 8-12 hours, but sometimes can last up to 24 hours. Please call our office if you are still unable to move your extremity after 24 hours, unless you received a pain pump to take home. Nerve blocks typically wear off quickly, so start taking pain medication as soon as you start feeling soreness near your surgical site. Weight bearing and Range of Motion. Do not bear any weight through your operative extremity immediately after surgery. If you had upper extremity surgery, do not lift anything with that arm. If you are in a knee brace, keep it locked in place until your follow-up. We will discuss your weight bearing, range of motion, and lifting restrictions in detail at your first post-operative appointment. Continuous Passive Motion (CPM) Machine If you were prescribed a CPM machine, it will start after your first post- operative appointment, at which time we will give you instructions on the range of motion settings and duration of treatment Physical therapy You will be given a prescription for physical therapy or occupational therapy at your first post-operative appointment. Typically, patients start therapy within 1 week of surgery Wound care and showering We will inspect your wound at your first post-operative visit, and may do a dressing change at that time. Most patients will be in a water-proof dressing that is removed 14 days after surgery. It is normal to see some dried blood on the dressing. Do not remove your dressing, paper strips or sutures yourself unless you are given permission. Showering is allowed the day after surgery. Do not scrub or remove any dressings. The wound should not be submerged underwater (i.e. in a bathtub or pool) until 4 weeks after surgery KENNETH stockings If you were given white stockings, these are to be worn at all times except to shower (on both legs) for the first 2 weeks after surgery. Driving You may not drive while taking narcotic pain medication or while in a cast, splint, sling or brace. You, the patient, need to make the final determination about when you are safe to drive, however, the earliest you may consider driving after surgery is below: Hand/Wrist/Elbow Surgery: 3 days Shoulder Surgery: 2 weeks Hip,/Knee/Ankle Surgery: 4 weeks Fracture repair: 6 weeks Return to Work Your return to work depends on what surgery was done and what type of work you do. Please bring any paperwork your employer needs completed to your first post-operative visit. Also, bring a description of your job duties, as this helps us to understand what risks you may face at work. Travel Avoid long distance travel (greater than 1 hour) in airplanes and cars for the first 6 weeks after surgery. If you must travel, you need to have a Doppler ultrasound done before you travel to rule out a blood clot in your legs. Follow-up You should have a follow-up appointment already scheduled 1-2 days after surgery. If not, please contact our office to make this appointment before you leave the hospital. When to call the office It is normal to have swelling and bruising in the limb that was operated on. This will improve with time. It is also normal to have fevers for the first 2 days after surgery. Reasons you should call your doctor include: Uncontrolled pain; Nausea, vomiting, or constipation that does not improve with medication; Fevers over 101.5, chills, sweats; Drainage or bleeding from the wound; Foul odor; Spreading areas of redness; Any other concerns. Contact Information Please call Dr. David's office at [phone] with any concerns. Pending Studies at Discharge: No Stand-Alone Forms: My [facility] Medications and DC Order Prescriptions: New oxycodone 5 mg Tablet 5 - 10 mg PO Q4H MDD Ongoing Tx; Max 12/day PRN (Reason: Post op pain relied) Qty: 28 0RF diclofenac sodium 75 mg tablet,delayed release (DR/EC) 75 mg PO BID 30 Days Qty: 60 1RF Continued hydrochlorothiazide 25 mg tablet 25 mg PO QAM Qty: 90 3RF multivitamin [Multiple Vitamins] Tablet 1 tab PO QAM ascorbic acid (vitamin C) [Vitamin C] 500 mg Tablet 500 mg PO QAM polyethylene glycol 3350 [Miralax] 17 gram/dose Powder 1 dose PO QAM docusate sodium [Stool Softener] 250 mg Capsule 250 mg PO BID cholecalciferol (vitamin D3) [Vitamin D3] 1,000 unit Capsule 1,000 unit PO QPM Calcium 600 + D(3) 600 mg calcium- 200 unit Capsule 1 tab PO QAM gabapentin [Neurontin] 300 mg capsule 300 mg PO QPM latanoprost 0.005 % Drops 1 drp OPHTHALMIC (EYE) PM Systane (PF) 0.4-0.3 % Dropperette 1 drp OPHTHALMIC (EYE) QID Glucosamine Chondroitin 550-30-1 mg Capsule 1 cap PO BID Hold Instructions: Resume on 09/11/23. acetaminophen [Tylenol Extra Strength] 500 mg Tablet 1,000 mg PO Q8 Qty: 30 0RF oxycodone 5 mg Tablet 5 - 10 mg PO Q4H PRN (Reason: pain) Qty: 20 0RF Rx Instructions: 5mg for pain 1-5 10 mg for pain 6-10 Changed aspirin 81 mg Capsule 81 mg PO BID Qty: 0 0RF Discharge Orders: Discharge Order (Routine); Ordered 04/07/24 Ordered By: Andrés Byrne Admission Data Admit Date/Time: 04/06/24 12:20 Attending Provider: Sergey David Admit Provider: Sergey David Primary Care Provider: Kathryn Martinez
[2024-04-07 09:43] LABS: Basophils # (auto) 0.02 K/uL (0.00-0.20); Basophils % (auto) 0.3 %; Eosinophils # (auto) 0.05 K/uL (0.00-0.50); Eosinophils % (auto) 0.8 %; Hematocrit (blood only) 34.6 % (37.0-47.0); Hemoglobin 11.6 g/dl (12.0-16.0); Immature Granulocytes # (auto) 0.03 K/uL (0.01-0.20); Immature Granulocytes % (auto) 0.5 %; Lymphocytes % (auto) 14.4 %; Mean Corpuscular Hemoglobin 29.7 pg (25.0-34.0); Mean Corpuscular Hgb Conc 33.5 g/dL (32.0-36.0); Mean Corpuscular Volume 88.7 fL (80.0-100.0); Mean Platelet Volume 10.5 fL (9.4-12.4); Monocytes # (auto) 0.49 K/uL (0.11-0.59); Monocytes % (auto) 7.9 %; Neutrophils # (auto) 4.74 K/uL (1.40-6.50); Neutrophils % (auto) 76.1 %; Platelet Count 153 K/uL (130-400); RDW Coefficient of Variation 12.8 % (11.5-14.5); RDW Standard Deviation 41.4 fL (36.4-46.3); White Blood Count 6.23 K/ul (4.8-10.8)
[2024-04-07 10:04] LABS: BUN Creatinine Ratio 37.3 (10-20); Calcium 8.8 mg/dl (8.6-10.3); Creatinine Clr Calc Pharmacy 37.7 ml/min
[2024-04-07] MEDS ORDERED: CeleBREX 200 MG CAP PO SCH (21:00)
== END 2024-04-07 12:06 | disposition home health service (06) | DRG 470 ==
LOC: ASU 07:21 → 3N 12:20

== ENCOUNTER 2024-04-10 04:04 | Inpatient (IN) ==
--- NOTE | 2024-04-10 04:17 | Emergency Department Note ---
Impression & Plan Pneumoperitoneum of unknown etiology ADMIT ED Provider Note HPI: History obtained from patient and EMS report. The patient is a 84-year-old female, postoperative day #4 status post a left total hip arthroplasty with Dr. Song, presents the emergency department with a chief complaint of lower chest pain/epigastric pain. Patient states that this pain began about an hour prior to arrival to the ER and awoke her from sleep. Patient contacted her daughter who contacted EMS. On EMS arrival the patient was hypoxic at 88% placed on nasal cannula oxygen. Patient was given IV fentanyl in the field with good improvement in her pain. On arrival here to the ED, the patient appears to be in no acute distress. She denies any sensation of dyspnea, states she does have some mild discomfort still in the epigastric region of her chest/abdomen however this is much improved from previous. ROS: - Per HPI Differential Diagnosis: Acute gastritis, acute pancreatitis, peptic ulcer disease, hiatal hernia, pulmonary embolism, acute coronary syndrome, acute cholecystitis, amongst other potential pathologies. *Outpatient medications and allergy history reviewed. PE: General: Alert, frail-appearing, no acute distress HEENT: Normocephalic, trachea midline Eyes: Extraocular eye movement is intact, no scleral erythema Pulmonary: Clear to auscultation bilaterally, no wheezing Cardio: Regular rate and rhythm GI: Abdomen is soft to palpation, there is tenderness to palpation over the epigastric area, no guarding or rigidity : No suprapubic tenderness MSK: No evidence of trauma or malformation of the extremities, no edema Skin: Surgical wound to left hip appears to be healing appropriately without any surrounding erythema or purulent drainage, otherwise no evidence of rash Neuro: Alert, no focal deficits Psychiatric: Cooperative INDEPENDENT INTERPRETATIONS: equipment monitor phototypesetting: (As interpreted by myself): - An order was placed for continuous cardiac monitoring - Patient was noted to be in sinus rhythm with a rate of 85 EKG: (As interpreted by myself): Rate: 87 Rhythm: Normal sinus rhythm Intervals: Within normal limits ST changes: No ST elevation Time: 042 Interventions provided in ED: -IV fluid bolus, IV morphine, IV Zofran Medical Decision Making: IV was established and lab work obtained, patient was placed on laboratory monitor. Lab work shows no leukocytosis, hemoglobin is stable 11.3, platelet count is normal at 213, CMP does not show any evidence of any critical findings. Troponin is negative. EKG shows normal sinus rhythm with a rate of 87. CT angiography of the chest was obtained and does not show any evidence of pulmonary embolism, CT imaging of the abdomen pelvis does redemonstrate some findings consistent with severe hiatal hernia, there is also pneumoperitoneum noted of unclear etiology. Patient denies any recent abdominal surgeries, given the location of her pain in addition to findings of pneumoperitoneum I did discuss her presentation with the on-call midlevel provider for general surgery, Maggie Orozco, and Dr. Lambert the attending for the general surgery service was also consulted. Following their evaluation the patient was determined appropriate for emergent operative intervention. Patient was in agreement to this plan. Blood cultures were ordered as well as IV Zosyn. Patient was placed for admission to the medicine service following my conversation with Dr. Morocho. Consultants/Discussions held with other healthcare providers: -General Surgery, Dr. Lambert -Hospitalist, Dr. Morocho Disposition discussion held by myself with: -Patient and family at bedside Diagnosis: 1. Acute abdominal pain, epigastric 2. Pneumoperitoneum on CT imaging of the abdomen pelvis, acute, unclear etiology Disposition: Admission Perez Galarza DO Emergency Medicine Past Med/Surg History Problem List (Updated 04/10/24 @ 08:19 by Perez Galarza DO) Pneumoperitoneum of unknown etiology (Acute) Pneumoperitoneum S/P total left hip arthroplasty Osteoarthritis of left hip Paroxysmal SVT (supraventricular tachycardia) Per records Encounter for pre-operative examination Left ovarian cyst (Acute) Medical History Glaucoma Hypercholesteremia HTN (hypertension) Sick sinus syndrome Dual chamber implanted 2005, replaced [address] Irizarry/[facility] cardio Hx of supraventricular tachycardia LVH (left ventricular hypertrophy) Follows with [facility] cardio Pacemaker Dual chamber implanted 2005, replaced [address] Irizarry/[facility] cardio History of COVID-19 04/2023- mild symptoms, resolved Osteoarthritis Surgical History History of ear surgery left S/P total knee replacement right History of tooth extraction History of right inguinal hernia repair History of right cataract extraction Hx of colonoscopy Hx of hysterectomy Hx laparoscopic cholecystectomy History of lumbar fusion History of permanent cardiac pacemaker placement Implanted 2005 [employer], replaced 2014 Family History Father Coronary heart disease Mother Dementia Other No family history of adverse response to anesthesia Social History Smoking Status: Never smoker Second Hand Exposure: No; Do You Dip or Chew Tobacco: No; Hx Alcohol Use: No Hx Substance Use: No Preferred Language: Georgian Communication Ability: Effective Communication Ability Comment: very [place] Visual Impairment: No Limitations Proj Mgr Required: No Beliefs That Will Affect Care: None marital status: Current Living Situation: Alone Current Living Situation Comment: spouse currently in rehab facility current occupational status: retired 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 How many Children do You have: 2 Feels Safe at Home: Yes Assistive Devices: Walker Allergies Allergies Allergy/AdvReac Type Severity Reaction Status Date / Time meloxicam AdvReac Intermediate Swelling- Verified 04/06/24 08:11 stomach Home Meds Home Medications Medication Instructions Recorded Confirmed ascorbic acid (vitamin C) 500 mg 500 mg PO QAM 01/11/18 04/06/24 tablet (Vitamin C) calcium 600 mg (as 1 tab PO QAM 01/11/18 04/06/24 carbonate)-vitamin D3 5 mcg (200 unit) capsule (Calcium 600 + D(3)) cholecalciferol (vitamin D3) 25 1,000 unit PO QPM 01/11/18 04/06/24 mcg (1,000 unit) capsule (Vitamin D3) docusate sodium 250 mg capsule 250 mg PO BID 01/11/18 04/06/24 (Stool Softener) multivitamin (Multiple Vitamins 1 tab PO QAM 01/11/18 04/06/24 tablet) polyethylene glycol 3350 17 1 dose PO QAM 01/11/18 03/15/24 gram/dose oral powder (Miralax) gabapentin 300 mg capsule 300 mg PO QPM 08/15/20 04/06/24 (Neurontin) glucosamine sulf dipot 1 cap PO BID 07/20/23 04/06/24 chlr,msm,chond 550 mg-C 30 mg-richardson 1 mg capsule (Glucosamine Chondroitin) latanoprost 0.005 % eye drops 1 drp ophthalmic (eye) PM 07/20/23 04/06/24 peg 400-propylene glycol (PF) 0.4 1 drp ophthalmic (eye) QID 07/20/23 04/06/24 %-0.3 % eye drops in a dropperette (Systane (PF)) Previous Rx's Medication Instructions Recorded hydrochlorothiazide 25 mg tablet 25 mg PO QAM #90 tabs 04/18/19 acetaminophen 500 mg tablet 1,000 mg (2 x 500 mg) PO Q8 #30 08/11/23 (Tylenol Extra Strength) tabs oxycodone 5 mg tablet 5 - 10 mg (1 - 2 x 5 mg) PO Q4H 08/11/23 PRN pain #20 tabs aspirin 81 mg capsule 81 mg PO BID #0 caps 04/07/24 diclofenac sodium 75 mg 75 mg PO BID Post op pain and 04/07/24 tablet,delayed release inflammation relief 30 days #60 tabs oxycodone 5 mg tablet 5 - 10 mg (1 - 2 x 5 mg) PO Q4H 04/07/24 PRN Post op pain relied #28 tabs Results & Data (ED) Vital Signs Vital Signs - 24 hr 04/10/24 04:12 04/10/24 04:17 04/10/24 04:22 Temperature 36.7 C Temperature Source Oral Pulse Rate 95 H 92 H 87 Pulse Rate [Apical] Pulse Rate from SpO2 Sensor Pulse Rhythm Regular Pulse Rhythm [Apical] Pulse Strength [Apical] Respiratory Rate 18 16 Respiratory Effort / Characteristics Non-Labored Spontaneous Respiratory Depth Normal Respiratory Pattern Regular Blood Pressure 150/78 H Blood Pressure Mean 102 Pulse Oximetry 97 98 Oxygen Delivery Method Nasal Cannula Nasal Cannula Oxygen Flow Rate 3 3 Sepsis Recent Fever Within 48 Hours No Sepsis New/Unexplained Change in Mental Status N/A Sepsis Action Taken by Nursing No Action Required 04/10/24 05:42 04/10/24 05:44 04/10/24 06:40 Temperature Temperature Source Pulse Rate 108 H 105 H Pulse Rate [Apical] 98 H Pulse Rate from SpO2 Sensor 108 H Pulse Rhythm Pulse Rhythm [Apical] Regular Pulse Strength [Apical] Normal Respiratory Rate 24 18 18 Respiratory Effort / Characteristics Non-Labored Spontaneous Respiratory Depth Normal Respiratory Pattern Blood Pressure 150/83 H Blood Pressure Mean 105 Pulse Oximetry 90 90 98 Oxygen Delivery Method Nasal Cannula Nasal Cannula Oxygen Flow Rate 4 3 Sepsis Recent Fever Within 48 Hours Sepsis New/Unexplained Change in Mental Status Sepsis Action Taken by Nursing Laboratory Data 04/10/24 04:06 04/10/24 06:00 Lab Results 04/10/24 04/10/24 04/10/24 Range/Units 04:06 06:00 07:14 WBC 8.83 (4.8-10.8) K/ul RBC 3.79 L (4.20-5.40) M/uL Hgb 11.3 L (12.0-16.0) g/dl Hct 33.5 L (37.0-47.0) % MCV 88.4 (80.0-100.0) fL MCH 29.8 (25.0-34.0) pg MCHC 33.7 (32.0-36.0) g/dL RDW Std Deviation 41.4 (36.4-46.3) fL RDW Coeff of Erika 12.7 (11.5-14.5) % Plt Count 213 (130-400) K/uL MPV 10.1 (9.4-12.4) fL Immature Gran % (Auto) 1.1 % Neut % (Auto) 70.0 % Lymph % (Auto) 17.1 % [place] % (Auto) 6.1 % Eos % (Auto) 5.5 % Baso % (Auto) 0.2 % Neut # (Auto) 6.17 (1.40-6.50) K/uL Lymph # (Auto) 1.51 (1.20-3.40) K/uL [place] # (Auto) 0.54 (0.11-0.59) K/uL Eos # (Auto) 0.49 (0.00-0.50) K/uL Baso # (Auto) 0.02 (0.00-0.20) K/uL Immature Gran # (Auto) 0.10 (0.01-0.20) K/uL PT Cancelled 10.3 INR Cancelled 0.9 Sodium 132 L (136-145) mmol/L Potassium TNP 3.8 Chloride 96 L (98-107) mmol/L Carbon Dioxide 30 (21-32) mmol/L Anion Gap 6 (3-11) BUN 28 H (6-23) mg/dl Creatinine 0.68 (0.6-1.2) mg/dl Est Cr Clr Drug Dosing 49.2 ml/min eGFR 85.29 BUN/Creatinine Ratio 41.2 H (10-20) Glucose 149 H (70-99(Fasting)) mg/dl Calcium 8.7 (8.6-10.3) mg/dl Total Bilirubin 0.8 (0.2-1.0) mg/dl AST TNP 24 ALT 13 (7-52) U/L Alkaline Phosphatase 125 H (34-104) U/L Troponin I High Sens 3.7 4.8 (0-14) pg/ml Total Protein 6.6 (6.0-8.3) gm/dl Albumin 3.7 (3.4-5.0) gm/dl Globulin 2.9 (2.5-4.0) gm/dl Albumin/Globulin Ratio 1.3 (0.9-2) Lipase 29 (11-82) U/L Administered Medications Discontinued Medications Al Hydrox/Mg Hydrox/Simethicone (Aluminum/Magnesium Susp 30 Ml Udc) 30 ml PO NOW STA Stop: 04/10/24 06:24 Last Admin: 04/10/24 06:27 Dose: 30 ml Documented By: JC Sodium Chloride (Nss) 1,000 mls @ 999 mls/hr IV .Q1H1M ONE Stop: 04/10/24 05:16 Last Infusion: 04/10/24 06:35 Dose: Infused Documented By: Admin: 04/10/24 04:23 Dose: 999 mls/hr Documented By: HUMBERTO Piperacillin Sod/Tazobactam Sod (Zosyn) 4.5 gm in 100 mls @ 200 mls/hr IV NOW ONE; Protocol Stop: 04/10/24 07:14 Last Admin: 04/10/24 07:43 Dose: 200 mls/hr Documented By: LIANNA Ioversol (Optiray 320 125ml) 125 ml IV ONCE ONE Stop: 04/10/24 05:15 Last Admin: 04/10/24 05:15 Dose: 118 ml Documented By: CAROL Morphine Sulfate (Morphine Sulfate 4 Mg/Ml 1 Ml Carp\Vial) 4 mg IV NOW STA Stop: 04/10/24 05:20 Last Admin: 04/10/24 05:41 Dose: 4 mg Documented By: HUMBERTO Ondansetron HCl (Ondansetron Inj 2 Mg/Ml 2 Ml Vial) 4 mg IV NOW STA Stop: 04/10/24 05:20 Last Admin: 04/10/24 05:41 Dose: 4 mg Documented By: [facility] [place] Imaging Data Radiologist's Impression: Abdomen/Pelvis CT 04/10/24 04:15 EXAM: CT abd pelvis IV con only CLINICAL HISTORY: UPPER ABD PAIN, 118 ML OPTIRAY 320 TECHNIQUE: CT of the abdomen and pelvis was performed with and without contrast (118ml Optiray 320), with the following protocol: axial images with, and reconstructed coronal and sagittal images. One of the following dose reduction techniques was utilized for this exam: Automated exposure control, adjustment of the mA and/or kV according to patient size, and use of iterative reconstruction. COMPARISON: CT abd pelvis 06/11/2014. XR pelvis 04/06/2024. FINDINGS: Visualized lower chest: Moderate hiatal hernia. Containing part of the gastric body. Surrounded by mild free fluid. Interval increase. Basilar subsegmental consolidations Abdomen: Liver: Few hypodense small hepatic cysts. The largest measured about 2.7 x 2.2 cm, seen in the left liver lobe. Which showed peripheral nodular enhancement. Unchanged. Normal in size, shape, and density. Hepatic vasculature and biliary ducts are unremarkable. Gallbladder and Biliary System: Evidence of cholecystectomy. Please correlate with the prior surgical history. The common bile duct is normal in caliber, without dilation. Pancreas: Pancreatic head, body, and tail are visualized and appear normal in size and density. No pancreatic masses or calcifications were noted. The pancreatic duct is not dilated. Spleen: Normal in size, shape, and density. No splenic lesions or masses were identified. Kidneys and Adrenal Glands: Both kidneys are normal in size, shape, and position. Cortical thickness is within normal limits. No renal calculi or hydronephrosis. Adrenal glands are unremarkable, with no evidence of masses or hyperplasia. Pelvis: Urinary Bladder: Unremarkable. The uterus could not be visualized. Likely due to a hysterectomy. Please correlate with the prior surgical history. New finding. Peritoneal and Retroperitoneal Structures: Multiple air foci seen in the abdominal cavity suggestive of pneumoperitoneum. New finding. Mild pelvic free fluid. New finding. No lymphadenopathy was noted. Bowel: Mild colonic fecal loading. The visualized bowel loops are normal in caliber and appearance. No evidence of bowel obstruction or wall thickening. The appendix could not be identified. No signs of inflammatory changes in the right iliac region. Bones and Soft Tissues: Evidence of nondisplaced fractures involving left pubic rami and the both sacral norbert (indeterminate age). Callus formation is noted. Unchanged compared to prior XR pelvis dated on 04/06/2024. Small collection seen adjacent to the left pubic rami with small air foci. This could represent a hematoma. Left-sided inguinal hernia containing a segment of bowel loops. No signs of strangulation. Interval increase. Degenerative changes of the visualized skeleton. Unchanged. Thoracolumbar scoliosis with convexity to the left side. Unchanged. Left hip prosthesis. Unchanged. Fixation screws and plate are seen through L3-L5 vertebral bodies. Unchanged. IMPRESSION: 1. Moderate hiatal hernia. Surrounded by a mild amount of free fluid. New finding. The possibility of complicated hiatal hernia could not be excluded. Need clinical correlation. 2. Evidence of pneumoperitoneum and mild pelvic free fluid. This could be due to recent abdominal intervention or perforated viscus. Need clinical correlation. New finding. 3. Evidence of nondisplaced fractures seen involving left pubic rami and sacral ala. Indeterminate age. Unchanged compared to prior XR pelvis dated on 04/06/2024. 4. Mild colonic fecal loading. 5. Multiple hypodense hepatic cysts. On top of differential diagnoses are hepatic hemangiomas. Unchanged. 6. Left-sided inguinal hernia. No signs of strangulation. Interval increase. 7. Possible small hematoma in the left inguinal region. New finding. Electronically signed by Slava Jimenez 04-10-2024 06:38 AM Chest CTA 04/10/24 04:15 EXAM: CT angio chest PE protocol CLINICAL HISTORY: Evaluate for pulmonary embolism TECHNIQUE: Contiguous 3.[address] angiographic images of the chest were acquired with the administration of intravenous contrast 118 ML OPTIRAY 320. Coronal and sagittal reconstructions were obtained. contrast was administered for post-contrast images. One of these 3D techniques was utilized: Maximum Intensity Pixel (MIP), 3D Reconstructed Images, Volume Rendered Images, Surface Shaded Rendering. One of the following dose reduction techniques was utilized for this exam: Automated exposure control, adjustment of the mA and/or kV according to patient size, and use of iterative reconstruction. COMPARISON: with the prior 04/26/2018 study. FINDINGS: Wide diaphragmatic hiatus with para esophageal hernia harboring the gastric fundus and part of the body exerting some compression manifestation upon the adjacent left basal lung extent with subsegmental atelectasis .. A stable inserted Pacmaker is seen. Aorta: The thoracic aorta is normal in caliber. No evidence of aneurysm, dissection, or significant atherosclerotic changes. The aortic arch and descending thoracic aorta are unremarkable. Pulmonary Arteries: Pulmonary arteries are normal in size and opacification. No evidence of pulmonary embolism. No stenosis or filling defects. Superior Vena Cava (SVC) and Inferior Vena Cava (IVC): Normal opacification and caliber. No evidence of thrombus or obstruction. Coronary Arteries: Coronary arteries are well-opacified. No significant stenosis or atherosclerotic changes. Mediastinum: No mediastinal mass or lymphadenopathy. Normal appearance of the thymus. Heart: Normal size and morphology of the heart. No pericardial effusion. Lungs: Lungs are clear with no evidence of consolidation, nodules, or masses. Minimal left-side pleural reaction is seen. Left lower lung lobe small air-filled cyst is seen. Bones: Moderate spondylosis of the thoracic spine with mild right-side scoliosis found. No fractures or lytic/sclerotic lesions of the visualized bony structures. Normal alignment and bone density. Metallic density in right paravertebral soft tissue in lower thoracic spine region. Need clinical correlation. Soft Tissues: Normal appearance of the visualized soft tissues. No abnormal masses or fluid collections. Mild perihepatic fluid collection with air under the diaphragm is seen, please correlate with abdominal study. IMPRESSION: 1. No CTPA signs of pulmonary embolism 2. Bilateral basal subsegmental consolidations with peribronchial thickening. Need clinical correlation. 3. Large hiatus hernia harboring the gastric fundus and part of the body 4. Metallic density in right paravertebral soft tissue in lower thoracic spine region. Need clinical correlation. 5. Mild perihepatic fluid collection with air under the diaphragm. Correlate with abdominal imaging Electronically signed by Slava Jimenez 04-10-2024 06:27 AM Discharge Plan Visit Data Chief Complaint: Abdominal Pain Stated Complaint: ABDOMINAL PAIN X1 HOUR ED Provider: Perez Galarza Discharge Problem: Pneumoperitoneum of unknown etiology Discharge Instructions Interventions: ED Discharge Assessment Last Done: 04/10/24 08:11 Forms Stand Alone Forms: My [facility] Prescriptions Prescriptions: No Action hydrochlorothiazide 25 mg tablet 25 mg PO QAM Qty: 90 3RF multivitamin [Multiple Vitamins] Tablet 1 tab PO QAM ascorbic acid (vitamin C) [Vitamin C] 500 mg Tablet 500 mg PO QAM polyethylene glycol 3350 [Miralax] 17 gram/dose Powder 1 dose PO QAM docusate sodium [Stool Softener] 250 mg Capsule 250 mg PO BID cholecalciferol (vitamin D3) [Vitamin D3] 1,000 unit Capsule 1,000 unit PO QPM Calcium 600 + D(3) 600 mg calcium- 200 unit Capsule 1 tab PO QAM gabapentin [Neurontin] 300 mg capsule 300 mg PO QPM oxycodone 5 mg Tablet 5 - 10 mg PO Q4H MDD Ongoing Tx; Max 12/day PRN (Reason: Post op pain relied) Qty: 28 0RF diclofenac sodium 75 mg tablet,delayed release (DR/EC) 75 mg PO BID 30 Days Qty: 60 1RF aspirin 81 mg Capsule 81 mg PO BID Qty: 0 0RF latanoprost 0.005 % Drops 1 drp OPHTHALMIC (EYE) PM Systane (PF) 0.4-0.3 % Dropperette 1 drp OPHTHALMIC (EYE) QID Glucosamine Chondroitin 550-30-1 mg Capsule 1 cap PO BID Hold Instructions: Resume on 09/11/23. acetaminophen [Tylenol Extra Strength] 500 mg Tablet 1,000 mg PO Q8 Qty: 30 0RF oxycodone 5 mg Tablet 5 - 10 mg PO Q4H PRN (Reason: pain) Qty: 20 0RF Rx Instructions: 5mg for pain 1-5 10 mg for pain 6-10 Referrals Referrals: Kathryn Martinez MD [Primary Care Provider] -
[2024-04-10] MEDS: SODIUM CHLORIDE 0.9% 1,000 ML IV ONE (04:23)
[2024-04-10 04:26] LABS: Basophils # (auto) 0.02 K/uL (0.00-0.20); Basophils % (auto) 0.2 %; Eosinophils # (auto) 0.49 K/uL (0.00-0.50); Eosinophils % (auto) 5.5 %; Hematocrit (blood only) 33.5 % (37.0-47.0); Hemoglobin 11.3 g/dl (12.0-16.0); Immature Granulocytes % (auto) 1.1 %; Lymphocytes # (auto) 1.51 K/uL (1.20-3.40); Lymphocytes % (auto) 17.1 %; Mean Corpuscular Hemoglobin 29.8 pg (25.0-34.0); Mean Corpuscular Hgb Conc 33.7 g/dL (32.0-36.0); Mean Corpuscular Volume 88.4 fL (80.0-100.0); Mean Platelet Volume 10.1 fL (9.4-12.4); Monocytes # (auto) 0.54 K/uL (0.11-0.59); Monocytes % (auto) 6.1 %; Neutrophils # (auto) 6.17 K/uL (1.40-6.50); Platelet Count 213 K/uL (130-400); RDW Coefficient of Variation 12.7 % (11.5-14.5); RDW Standard Deviation 41.4 fL (36.4-46.3); Red Blood Count 3.79 M/uL (4.20-5.40); White Blood Count 8.83 K/ul (4.8-10.8)
[2024-04-10 04:52] LABS: Alanine Aminotransferase 13 U/L (7-52); Albumin Globulin Ratio 1.3 (0.9-2); Albumin Level 3.7 gm/dl (3.4-5.0); Alkaline Phosphatase 125 U/L (34-104); Anion Gap 6 (3-11); BUN Creatinine Ratio 41.2 (10-20); Bilirubin,Total 0.8 mg/dl (0.2-1.0); Blood Urea Nitrogen 28 mg/dl (6-23); Calcium 8.7 mg/dl (8.6-10.3); Carbon Dioxide 30 mmol/L (21-32); Chloride 96 mmol/L (98-107); Creatinine Clr Calc Pharmacy 49.2 ml/min; Globulin 2.9 gm/dl (2.5-4.0); Glucose 149 mg/dl (70-99(Fasting)); Lipase 29 U/L (11-82); Sodium 132 mmol/L (136-145); Total Protein 6.6 gm/dl (6.0-8.3); Troponin I High Sensitivity 3.7 pg/ml (0-14)
[2024-04-10] MEDS: OPTIRAY 320 125ml IV ONE (05:15)
[2024-04-10] MEDS: MoRPHine SULFATE 4 MG/ML 1 ML CARP\\VIAL IV STA (05:41)
[2024-04-10] MEDS: ONDANSETRON INJ 2 MG/ML 2 ML VIAL IV STA (05:41)
[2024-04-10] MEDS: ALUMINUM/MAGNESIUM SUSP 30 ML UDC PO STA (06:27)
--- NOTE | 2024-04-10 06:27 | CT Scan Report ---
EXAM: CT angio chest PE protocol CLINICAL HISTORY: Evaluate for pulmonary embolism TECHNIQUE: Contiguous 3.[address] angiographic images of the chest were acquired with the administration of intravenous contrast 118 ML OPTIRAY 320. Coronal and sagittal reconstructions were obtained. contrast was administered for post-contrast images. One of these 3D techniques was utilized: Maximum Intensity Pixel (MIP), 3D Reconstructed Images, Volume Rendered Images, Surface Shaded Rendering. One of the following dose reduction techniques was utilized for this exam: Automated exposure control, adjustment of the mA and/or kV according to patient size, and use of iterative reconstruction. COMPARISON: with the prior 04/26/2018 study. FINDINGS: Wide diaphragmatic hiatus with para esophageal hernia harboring the gastric fundus and part of the body exerting some compression manifestation upon the adjacent left basal lung extent with subsegmental atelectasis .. A stable inserted Pacmaker is seen. Aorta: The thoracic aorta is normal in caliber. No evidence of aneurysm, dissection, or significant atherosclerotic changes. The aortic arch and descending thoracic aorta are unremarkable. Pulmonary Arteries: Pulmonary arteries are normal in size and opacification. No evidence of pulmonary embolism. No stenosis or filling defects. Superior Vena Cava (SVC) and Inferior Vena Cava (IVC): Normal opacification and caliber. No evidence of thrombus or obstruction. Coronary Arteries: Coronary arteries are well-opacified. No significant stenosis or atherosclerotic changes. Mediastinum: No mediastinal mass or lymphadenopathy. Normal appearance of the thymus. Heart: Normal size and morphology of the heart. No pericardial effusion. Lungs: Lungs are clear with no evidence of consolidation, nodules, or masses. Minimal left-side pleural reaction is seen. Left lower lung lobe small air-filled cyst is seen. Bones: Moderate spondylosis of the thoracic spine with mild right-side scoliosis found. No fractures or lytic/sclerotic lesions of the visualized bony structures. Normal alignment and bone density. Metallic density in right paravertebral soft tissue in lower thoracic spine region. Need clinical correlation. Soft Tissues: Normal appearance of the visualized soft tissues. No abnormal masses or fluid collections. Mild perihepatic fluid collection with air under the diaphragm is seen, please correlate with abdominal study. IMPRESSION: 1. No CTPA signs of pulmonary embolism 2. Bilateral basal subsegmental consolidations with peribronchial thickening. Need clinical correlation. 3. Large hiatus hernia harboring the gastric fundus and part of the body 4. Metallic density in right paravertebral soft tissue in lower thoracic spine region. Need clinical correlation. 5. Mild perihepatic fluid collection with air under the diaphragm. Correlate with abdominal imaging Electronically signed by Slava Jimenez 04-10-2024 06:27 AM
[2024-04-10 06:33] LABS: Potassium 3.8 mmol/L (3.5-5.1)
--- NOTE | 2024-04-10 06:38 | CT Scan Report ---
EXAM: CT abd pelvis IV con only CLINICAL HISTORY: UPPER ABD PAIN, 118 ML OPTIRAY 320 TECHNIQUE: CT of the abdomen and pelvis was performed with and without contrast (118ml Optiray 320), with the following protocol: axial images with, and reconstructed coronal and sagittal images. One of the following dose reduction techniques was utilized for this exam: Automated exposure control, adjustment of the mA and/or kV according to patient size, and use of iterative reconstruction. COMPARISON: CT abd pelvis 06/11/2014. XR pelvis 04/06/2024. FINDINGS: Visualized lower chest: Moderate hiatal hernia. Containing part of the gastric body. Surrounded by mild free fluid. Interval increase. Basilar subsegmental consolidations Abdomen: Liver: Few hypodense small hepatic cysts. The largest measured about 2.7 x 2.2 cm, seen in the left liver lobe. Which showed peripheral nodular enhancement. Unchanged. Normal in size, shape, and density. Hepatic vasculature and biliary ducts are unremarkable. Gallbladder and Biliary System: Evidence of cholecystectomy. Please correlate with the prior surgical history. The common bile duct is normal in caliber, without dilation. Pancreas: Pancreatic head, body, and tail are visualized and appear normal in size and density. No pancreatic masses or calcifications were noted. The pancreatic duct is not dilated. Spleen: Normal in size, shape, and density. No splenic lesions or masses were identified. Kidneys and Adrenal Glands: Both kidneys are normal in size, shape, and position. Cortical thickness is within normal limits. No renal calculi or hydronephrosis. Adrenal glands are unremarkable, with no evidence of masses or hyperplasia. Pelvis: Urinary Bladder: Unremarkable. The uterus could not be visualized. Likely due to a hysterectomy. Please correlate with the prior surgical history. New finding. Peritoneal and Retroperitoneal Structures: Multiple air foci seen in the abdominal cavity suggestive of pneumoperitoneum. New finding. Mild pelvic free fluid. New finding. No lymphadenopathy was noted. Bowel: Mild colonic fecal loading. The visualized bowel loops are normal in caliber and appearance. No evidence of bowel obstruction or wall thickening. The appendix could not be identified. No signs of inflammatory changes in the right iliac region. Bones and Soft Tissues: Evidence of nondisplaced fractures involving left pubic rami and the both sacral norbert (indeterminate age). Callus formation is noted. Unchanged compared to prior XR pelvis dated on 04/06/2024. Small collection seen adjacent to the left pubic rami with small air foci. This could represent a hematoma. Left-sided inguinal hernia containing a segment of bowel loops. No signs of strangulation. Interval increase. Degenerative changes of the visualized skeleton. Unchanged. Thoracolumbar scoliosis with convexity to the left side. Unchanged. Left hip prosthesis. Unchanged. Fixation screws and plate are seen through L3-L5 vertebral bodies. Unchanged. IMPRESSION: 1. Moderate hiatal hernia. Surrounded by a mild amount of free fluid. New finding. The possibility of complicated hiatal hernia could not be excluded. Need clinical correlation. 2. Evidence of pneumoperitoneum and mild pelvic free fluid. This could be due to recent abdominal intervention or perforated viscus. Need clinical correlation. New finding. 3. Evidence of nondisplaced fractures seen involving left pubic rami and sacral ala. Indeterminate age. Unchanged compared to prior XR pelvis dated on 04/06/2024. 4. Mild colonic fecal loading. 5. Multiple hypodense hepatic cysts. On top of differential diagnoses are hepatic hemangiomas. Unchanged. 6. Left-sided inguinal hernia. No signs of strangulation. Interval increase. 7. Possible small hematoma in the left inguinal region. New finding. Electronically signed by Slava Jimenez 04-10-2024 06:38 AM
[2024-04-10 06:41] LABS: Troponin I High Sensitivity 4.8 pg/ml (0-14)
--- NOTE | 2024-04-10 07:22 | Surgery Consultation ---
Date of Consultation April 10, 2024 Assessment & Plan (1) Pneumoperitoneum: New onset abdominal pain, abd non distended, TTP epigastric area RUQ, pt will be scheduled for a emergent diagnostic laparoscopy, surgery as needed, possible EGD with on-call surgeon Dr. Lambert admit to medicine Keep NPO IV Fluids for hydration IV antiemetic PRN IV antibiotics ER gave zosyn IV analgesic PRN as above. most likely etiology is perforated gastric ulcer. will also need to evaluate the hiatal hernia for incarceration/gastric injury. discussed risks ( bleeding/infection/blood clots/injury to another organ/dvt/pe/mi/cva etc...) questions answered. will proceed with a diagnostic laparoscopy, possible egd, surgery as indicated. she agrees with the plan History of Present Illness Reason for Consultation: pneumoperitoneum Requesting Physician: Dr Galarza History of Present Illness Patient is a 84 yo female with PMH SVT, osteoarthritis s/p L MORALES 04/07, pacemaker , [place], HTN, hiatal hernia, dysphagia, inguinal hernia, dyspnea, that presented to the [facility] ER with c/o abdominal pain that started at 2 am in her epigastric area with radiation to right side. She denies N/V, last BM last night without difficulty. Denies blood thinners, family reports she is taking oral aspirin 81mg BID and diclofenac p/o L MORALES. CT scan in ER showing concerns for Moderate hiatal hernia. Surrounded by a mild amount of free fluid. The possibility of complicated hiatal hernia could not be excluded. 2. Evidence of pneumoperitoneum and mild pelvic free fluid. This could be due to recent abdominal intervention or perforated viscus. PT has been NPO since 5pm yesterday. Allergies Allergy/AdvReac Type Severity Reaction Status Date / Time meloxicam AdvReac Intermediate Swelling- Verified 04/06/24 08:11 stomach Home Medications Medication Instructions Recorded Confirmed Type ascorbic acid (vitamin C) 500 mg 500 mg PO QAM 01/11/18 04/06/24 History tablet (Vitamin C) calcium 600 mg (as 1 tab PO QAM 01/11/18 04/06/24 History carbonate)-vitamin D3 5 mcg (200 unit) capsule (Calcium 600 + D(3)) cholecalciferol (vitamin D3) 25 1,000 unit PO QPM 01/11/18 04/06/24 History mcg (1,000 unit) capsule (Vitamin D3) docusate sodium 250 mg capsule 250 mg PO BID 01/11/18 04/06/24 History (Stool Softener) multivitamin (Multiple Vitamins 1 tab PO QAM 01/11/18 04/06/24 History tablet) polyethylene glycol 3350 17 1 dose PO QAM 01/11/18 03/15/24 History gram/dose oral powder (Miralax) hydrochlorothiazide 25 mg tablet 25 mg PO QAM #90 tabs 04/18/19 04/06/24 Rx gabapentin 300 mg capsule 300 mg PO QPM 08/15/20 04/06/24 History (Neurontin) glucosamine sulf dipot 1 cap PO BID 07/20/23 04/06/24 History chlr,msm,chond 550 mg-C 30 mg-richardson 1 mg capsule (Glucosamine Chondroitin) latanoprost 0.005 % eye drops 1 drp ophthalmic (eye) PM 07/20/23 04/06/24 History peg 400-propylene glycol (PF) 0.4 1 drp ophthalmic (eye) QID 07/20/23 04/06/24 History %-0.3 % eye drops in a dropperette (Systane (PF)) acetaminophen 500 mg tablet 1,000 mg (2 x 500 mg) PO Q8 #30 08/11/23 04/06/24 Rx (Tylenol Extra Strength) tabs oxycodone 5 mg tablet 5 - 10 mg (1 - 2 x 5 mg) PO Q4H 08/11/23 03/15/24 Rx PRN pain #20 tabs aspirin 81 mg capsule 81 mg PO BID #0 caps 04/07/24 03/15/24 Rx diclofenac sodium 75 mg 75 mg PO BID Post op pain and 04/07/24 Rx tablet,delayed release inflammation relief 30 days #60 tabs oxycodone 5 mg tablet 5 - 10 mg (1 - 2 x 5 mg) PO Q4H 04/07/24 Rx PRN Post op pain relied #28 tabs Patient History Medical History Glaucoma Hypercholesteremia HTN (hypertension) Sick sinus syndrome Dual chamber implanted 2005, replaced [address] Irizarry/[facility] cardio Hx of supraventricular tachycardia LVH (left ventricular hypertrophy) Follows with [facility] cardio Pacemaker Dual chamber implanted 2005, replaced [address] Irizarry/[facility] cardio History of COVID-19 04/2023- mild symptoms, resolved Osteoarthritis Surgical History History of ear surgery left S/P total knee replacement right History of tooth extraction History of right inguinal hernia repair History of right cataract extraction Hx of colonoscopy Hx of hysterectomy Hx laparoscopic cholecystectomy History of lumbar fusion History of permanent cardiac pacemaker placement Implanted 2005 Medtronic, replaced 2014 Family History Father Coronary heart disease Mother Dementia Other No family history of adverse response to anesthesia Social History Smoking Status: Never smoker Second Hand Exposure: No; Do You Dip or Chew Tobacco: No; Hx Alcohol Use: No Hx Substance Use: No Preferred Language: Albanian Communication Ability: Effective Communication Ability Comment: very [place] Visual Impairment: No Limitations Rest Room Attendant Required: No Beliefs That Will Affect Care: None marital status: Current Living Situation: Alone Current Living Situation Comment: spouse currently in rehab facility current occupational status: retired 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 How many Children do You have: 2 Feels Safe at Home: Yes Assistive Devices: Walker Review of Systems Constitutional: no fever and no chills Cardiovascular: no chest pain Gastrointestinal: + abdominal pain; no nausea and no vomit ing Physical Exam Constitutional: no acute distress Cardiovascular: Rate/Rhythm: + tachycardic Gastrointestinal (Abdomen): Inspection/Auscultation: abdomen not distended Percussion/Palpation: + abdomen tender and abdomen soft Results & Data Vital Signs (Past 12 Hours) Vital Signs Temp Pulse Pulse Resp BP Pulse Ox O2 Del Method 04/10/24 06:40 98 H 18 98 Nasal Cannula 04/10/24 05:44 105 H 18 150/83 H 90 Nasal Cannula 04/10/24 04:22 87 04/10/24 04:17 92 H 16 98 Nasal Cannula 04/10/24 04:12 98.1 F 95 H 18 150/78 H 97 Nasal Cannula O2 Flow Rate 04/10/24 06:40 3 04/10/24 05:44 4 04/10/24 04:22 04/10/24 04:17 3 04/10/24 04:12 3 Diagnostic Findings [facility] [place] [phone] CT Scan Report Patient: MATHEW GUO Admit Date: 04/10/24 MR#: [id number] Address1: [address] [place] [address] Acct ID:[id number] Address2: Date: 1940 [facility] Zip: [place] [address] Age: 84 Location: ED Sex: F Room/Bed: Att Phy: Diagnosis: ABDOMINAL PAIN X1 HOUR Jocelynn Phy: Kathryn Martinez M.D. Service Date: 04/10/24 Fam Phy: Interpreting Phy: Slava Ron Phy: Ordering Phy: Perez Galarza, cc: ~ EXAM: CT abd pelvis IV con only CLINICAL HISTORY: UPPER ABD PAIN, 118 ML OPTIRAY 320 TECHNIQUE: CT of the abdomen and pelvis was performed with and without contrast (118ml Optiray 320), with the following protocol: axial images with, and reconstructed coronal and sagittal images. One of the following dose reduction techniques was utilized for this exam: Automated exposure control, adjustment of the mA and/or kV according to patient size, and use of iterative reconstruction. COMPARISON: CT abd pelvis 06/11/2014. XR pelvis 04/06/2024. FINDINGS: Visualized lower chest: Moderate hiatal hernia. Containing part of the gastric body. Surrounded by mild free fluid. Interval increase. Basilar subsegmental consolidations Abdomen: Liver: Few hypodense small hepatic cysts. The largest measured about 2.7 x 2.2 cm, seen in the left liver lobe. Which showed peripheral nodular enhancement. Unchanged. Normal in size, shape, and density. Hepatic vasculature and biliary ducts are unremarkable. Gallbladder and Biliary System: Evidence of cholecystectomy. Please correlate with the prior surgical history. The common bile duct is normal in caliber, without dilation. Pancreas: Pancreatic head, body, and tail are visualized and appear normal in size and density. No pancreatic masses or calcifications were noted. The pancreatic duct is not dilated. Spleen: Normal in size, shape, and density. No splenic lesions or masses were identified. Kidneys and Adrenal Glands: Both kidneys are normal in size, shape, and position. Cortical thickness is within normal limits. No renal calculi or hydronephrosis. Adrenal glands are unremarkable, with no evidence of masses or hyperplasia. Pelvis: Urinary Bladder: Unremarkable. The uterus could not be visualized. Likely due to a hysterectomy. Please correlate with the prior surgical history. New finding. Peritoneal and Retroperitoneal Structures: Multiple air foci seen in the abdominal cavity suggestive of pneumoperitoneum. New finding. Mild pelvic free fluid. New finding. No lymphadenopathy was noted. Bowel: Mild colonic fecal loading. The visualized bowel loops are normal in caliber and appearance. No evidence of bowel obstruction or wall thickening. The appendix could not be identified. No signs of inflammatory changes in the right iliac region. Bones and Soft Tissues: Evidence of nondisplaced fractures involving left pubic rami and the both sacral norbert (indeterminate age). Callus formation is noted. Unchanged compared to prior XR pelvis dated on 04/06/2024. Small collection seen adjacent to the left pubic rami with small air foci. This could represent a hematoma. Left-sided inguinal hernia containing a segment of bowel loops. No signs of strangulation. Interval increase. Degenerative changes of the visualized skeleton. Unchanged. Thoracolumbar scoliosis with convexity to the left side. Unchanged. Left hip prosthesis. Unchanged. Fixation screws and plate are seen through L3-L5 vertebral bodies. Unchanged. IMPRESSION: 1. Moderate hiatal hernia. Surrounded by a mild amount of free fluid. New finding. The possibility of complicated hiatal hernia could not be excluded. Need clinical correlation. 2. Evidence of pneumoperitoneum and mild pelvic free fluid. This could be due to recent abdominal intervention or perforated viscus. Need clinical correlation. New finding. 3. Evidence of nondisplaced fractures seen involving left pubic rami and sacral ala. Indeterminate age. Unchanged compared to prior XR pelvis dated on 04/06/2024. 4. Mild colonic fecal loading. 5. Multiple hypodense hepatic cysts. On top of differential diagnoses are hepatic hemangiomas. Unchanged. 6. Left-sided inguinal hernia. No signs of strangulation. Interval increase. 7. Possible small hematoma in the left inguinal region. New finding. Electronically signed by Slava Jimenez 04-10-2024 06:38 AM Dictated: 04/10/24 0516 Transcribed: [facility] [place] [phone] CT Scan Report Patient: MATHEW GUO Admit Date: 04/10/24 MR#: [id number] Address1: [address] [place] [address] Acct ID:[id number] Address2: Date: 1940 [facility] Zip: [place] [address] Age: 84 Location: ED Sex: F Room/Bed: Att Phy: Diagnosis: ABDOMINAL PAIN X1 HOUR Jocelynn Phy: Kathryn Martinez M.D. Service Date: 04/10/24 Fam Phy: Interpreting Phy: Slava Jimenez MDAdmit Phy: Ordering Phy: Perez Galarza, cc: ~ EXAM: CT angio chest PE protocol CLINICAL HISTORY: Evaluate for pulmonary embolism TECHNIQUE: Contiguous 3.[address] angiographic images of the chest were acquired with the administration of intravenous contrast 118 ML OPTIRAY 320. Coronal and sagittal reconstructions were obtained. contrast was administered for post-contrast images. One of these 3D techniques was utilized: Maximum Intensity Pixel (MIP), 3D Reconstructed Images, Volume Rendered Images, Surface Shaded Rendering. One of the following dose reduction techniques was utilized for this exam: Automated exposure control, adjustment of the mA and/or kV according to patient size, and use of iterative reconstruction. COMPARISON: with the prior 04/26/2018 study. FINDINGS: Wide diaphragmatic hiatus with para esophageal hernia harboring the gastric fundus and part of the body exerting some compression manifestation upon the adjacent left basal lung extent with subsegmental atelectasis .. A stable inserted Pacmaker is seen. Aorta: The thoracic aorta is normal in caliber. No evidence of aneurysm, dissection, or significant atherosclerotic changes. The aortic arch and descending thoracic aorta are unremarkable. Pulmonary Arteries: Pulmonary arteries are normal in size and opacification. No evidence of pulmonary embolism. No stenosis or filling defects. Superior Vena Cava (SVC) and Inferior Vena Cava (IVC): Normal opacification and caliber. No evidence of thrombus or obstruction. Coronary Arteries: Coronary arteries are well-opacified. No significant stenosis or atherosclerotic changes. Mediastinum: No mediastinal mass or lymphadenopathy. Normal appearance of the thymus. Heart: Normal size and morphology of the heart. No pericardial effusion. Lungs: Lungs are clear with no evidence of consolidation, nodules, or masses. Minimal left-side pleural reaction is seen. Left lower lung lobe small air-filled cyst is seen. Bones: Moderate spondylosis of the thoracic spine with mild right-side scoliosis found. No fractures or lytic/sclerotic lesions of the visualized bony structures. Normal alignment and bone density. Metallic density in right paravertebral soft tissue in lower thoracic spine region. Need clinical correlation. Soft Tissues: Normal appearance of the visualized soft tissues. No abnormal masses or fluid collections. Mild perihepatic fluid collection with air under the diaphragm is seen, please correlate with abdominal study. IMPRESSION: 1. No CTPA signs of pulmonary embolism 2. Bilateral basal subsegmental consolidations with peribronchial thickening. Need clinical correlation. 3. Large hiatus hernia harboring the gastric fundus and part of the body 4. Metallic density in right paravertebral soft tissue in lower thoracic spine region. Need clinical correlation. 5. Mild perihepatic fluid collection with air under the diaphragm. Correlate with abdominal imaging Electronically signed by Slava Jimenez 04-10-2024 06:27 AM Dictated: 04/10/24 0503 Transcribed: PG Care Time/CCT Total # of Minutes Spent Total Time Spent with Patient: Total time spent is greater than 50% in coordination of care (as documented) at patient's floor/unit and/or counseling patient: Coding Level of Care Code 55077 INT INP/OBS CARE 1/40MIN Diagnoses Pneumoperitoneum K66.8
--- NOTE | 2024-04-10 07:34 | Anesthesiology Consultation ---
Date of Service April 10, 2024 Assessment & Plan Chart Review Chart Review: Acceptable Risk for Surgery and Patient NOT seen in Pre Admission Testing Consults Requested none History Surgery Operation Date: 04/10/24 07:00 Proposed Procedures p Laparoscopic Operative - Ranjit Lambert DO s Possible Esophagogastroduodenoscopy - Ranjit Lambert, Height/Weight Height: 5 ft Weight: 60.6 kg Allergies Allergy/AdvReac Type Severity Reaction Status Date / Time meloxicam AdvReac Intermediate Swelling- Verified 04/06/24 08:11 stomach Medications Home Medications Medication Instructions Recorded Confirmed Last Taken ascorbic acid (vitamin C) 500 mg 500 mg PO QAM 01/11/18 04/06/24 03/30/24 tablet (Vitamin C) calcium 600 mg (as 1 tab PO QAM 01/11/18 04/06/24 04/03/24 carbonate)-vitamin D3 5 mcg (200 unit) capsule (Calcium 600 + D(3)) cholecalciferol (vitamin D3) 25 1,000 unit PO QPM 01/11/18 04/06/24 04/03/24 mcg (1,000 unit) capsule (Vitamin D3) docusate sodium 250 mg capsule 250 mg PO BID 01/11/18 04/06/24 04/05/24 20:00 (Stool Softener) multivitamin (Multiple Vitamins 1 tab PO QAM 01/11/18 04/06/24 04/03/24 tablet) polyethylene glycol 3350 17 1 dose PO QAM 01/11/18 03/15/24 08/09/23 08:00 gram/dose oral powder (Miralax) hydrochlorothiazide 25 mg tablet 25 mg PO QAM #90 tabs 04/18/19 04/06/24 04/05/24 08:00 gabapentin 300 mg capsule 300 mg PO QPM 08/15/20 04/06/24 04/03/24 (Neurontin) glucosamine sulf dipot 1 cap PO BID 07/20/23 04/06/24 04/03/24 chlr,msm,chond 550 mg-C 30 mg-richardson 1 mg capsule (Glucosamine Chondroitin) latanoprost 0.005 % eye drops 1 drp ophthalmic (eye) PM 07/20/23 04/06/24 04/05/24 20:00 peg 400-propylene glycol (PF) 0.4 1 drp ophthalmic (eye) QID 07/20/23 04/06/24 04/06/24 06:00 %-0.3 % eye drops in a dropperette (Systane (PF)) acetaminophen 500 mg tablet 1,000 mg (2 x 500 mg) PO Q8 #30 08/11/23 04/06/24 04/05/24 17:00 (Tylenol Extra Strength) tabs oxycodone 5 mg tablet 5 - 10 mg (1 - 2 x 5 mg) PO Q4H 08/11/23 03/15/24 Unknown PRN pain #20 tabs aspirin 81 mg capsule 81 mg PO BID #0 caps 04/07/24 03/15/24 Unknown diclofenac sodium 75 mg 75 mg PO BID Post op pain and 04/07/24 Unknown tablet,delayed release inflammation relief 30 days #60 tabs oxycodone 5 mg tablet 5 - 10 mg (1 - 2 x 5 mg) PO Q4H 04/07/24 Unknown PRN Post op pain relied #28 tabs Past Medical History Medical History Glaucoma Hypercholesteremia HTN (hypertension) Sick sinus syndrome Dual chamber implanted 2005, replaced [address] Irizarry/[facility] Hx of supraventricular tachycardia LVH (left ventricular hypertrophy) Follows with [facility] Pacemaker Dual chamber implanted 2005, replaced [address] Irizarry/[facility] History of COVID-19 04/2023- mild symptoms, resolved Osteoarthritis Past Family History Family History Father Coronary heart disease Mother Dementia Other No family history of adverse response to anesthesia Past Surgical History Surgical History History of ear surgery left S/P total knee replacement right History of tooth extraction History of right inguinal hernia repair History of right cataract extraction Hx of colonoscopy Hx of hysterectomy Hx laparoscopic cholecystectomy History of lumbar fusion History of permanent cardiac pacemaker placement Implanted 2005 [employer]tronic, replaced 2014 Social History Smoking Status: Never smoker Do You Dip or Chew Tobacco: No Hx Alcohol Use: No Hx Substance Use: No substance use type: does not use Physical Exam Vital Signs Last Vital Signs Temp 36.7 C 04/10/24 04:12 Pulse 98 H 04/10/24 06:40 Resp 18 04/10/24 06:40 BP 150/83 H 04/10/24 05:44 Pulse Ox 98 04/10/24 06:40 O2 Del Method Nasal Cannula 04/10/24 06:40 O2 Flow Rate 3 04/10/24 06:40 Testing Laboratory Results 04/10/24 04:06 04/10/24 06:00 PT Cancelled 04/10/24 04:06 INR Cancelled 04/10/24 04:06 Electrocardiogram Date: 04/10/24 Findings: + NSR @ Other Testing PM in place, 30% atrial paced
[2024-04-10] MEDS ORDERED: fentaNYL citrate PF 100 MCG/2 ML VIAL ONE (07:36)
[2024-04-10] MEDS ORDERED: PHENYLEPHRINE HCL 10 MG/ML VIAL ONE (07:42)
[2024-04-10] MEDS: PIPERACILLIN/TAZOBACTAM 4.5 GM/100 ML BAG IV ONE (07:43)
[2024-04-10] MEDS ORDERED: LIDOCAINE 2% 2 ML VIAL/AMP(20MG/ML) INFIL ONE (07:43)
[2024-04-10] MEDS ORDERED: PROPOFOL IV EMULSION 10 MG/ML 20 ML VIAL IV ONE (07:43)
[2024-04-10] MEDS ORDERED: ROCURONIUM BROMIDE 10 MG/ML 5 ML VIAL IV ONE (07:44)
--- NOTE | 2024-04-10 07:45 | History & Physical Report ---
Date of Service April 10, 2024 Assessment & Plan (1) Perforated gastric ulcer: Plan: Gastric ulcer perforation in setting of recent surgery, stress, NSAID use, aspirin use Surgery consulted. Taken emergently for diagnostic laparoscopy. PPI IV BID S/p repaired perforated ulcer with Dhaval patch and abdominal washout 04/10/[address] N[address]o. will need to be n.p.o. for several days while she heals, PPN consultation placed. If not able to progress after ~72 hours then will switch to TPN. IV labetalol if needed for blood pressure control, currently normotensive postoperative She is not septic or toxic at time of assessment. Recent left hip total arthroplasty 05/07 due to OA Stable. Patient does show nondisplaced left pubic rami fracture age- indeterminate Surgical site intact, no acute change in management Aspirin held while NPO. DVT PPx held immediately perioperative Sick sinus syndrome s/p pacemaker placement Troponin normal Admitting EKG normal sinus rhythm, QTc 442. No territorial ST/T wave changes Subsegmental consolidation/peribronchial thickening No respiratory symptoms Denies fever/chills/cough/shortness of breath Low suspicion for pulmonary infection, would be covered by Zosyn and MRSA screen is negative DVT prophylaxis: SCDs Diet: N.p.o., PPN CODE STATUS: Full code Disposition: PCU (2) S/P total left hip arthroplasty: (3) Sick sinus syndrome: History of Present Illness Primary Care Provider: Kathryn Martinez MD 84-year-old female with past medical history of hypertension, lumbar fusion, OA, spinal stenosis, paroxysmal SVT, sick sinus syndrome s/p pacemaker placement stable at last follow-up who presented to the ER with sudden onset abdominal pain/epigastric pain/chest pain which awoken her from sleep. On ER evaluation she was mildly tachycardic, had no leukocytosis, creatinine was normal, and troponin was normal. CTA of the chest showed no signs of PE, subsegmental consolidations peribronchial thickening, metallic density in right paravertebral soft tissue lower spine, mild perihepatic fluid collection under the diaphragm. Abdominal CT showed moderate hiatal hernia surrounded by mild amount of free fluid new suspicious for complicated hiatal hernia, evidence of pneumoperitoneum with mild pelvic free fluid suspicious for perforated viscus, nondisplaced fractures of left pubic rami of indeterminate age, left-sided inguinal hernia without evidence of strangulation, and left inguinal possible small hematoma. Surgery was contacted emergently for pneumoperitoneum and patient was emergently scheduled for diagnostic laparoscopy, possible EGD. History of recent hip replacement Patient has a history of recent left hip total arthroplasty 04/06/2024 due to OA. Has taken NSAIDs for discomfort. Suspect in the setting of both operative stress and NSAID use patient with progressive gastric ulcer and subsequent perforation leading to perforated viscus by history. Patient was taken emergently to surgery Preop History: No blood thinner use No prior anesthesia reactions No alcohol/tobacco use/illicit drug use No DM - NO CHF +NSAIDs Seen at the bedside in the PACU following emergent surgery. She reports that she is recovering well from her hip surgery has been using diclofenac tablets daily in addition to gel. Also uses oxycodone for pain. She reports that she felt normal the preceding few days and has not had any GI bleeding and has not had bright red blood per rectum/melena. She was awoken today with sudden onset of severe abdominal pain. This pain has resolved at time of PACU assessment. She denies fever chills or sweats. Denies chest pain/chest pressure. She reports that she has no real medical problems. Does take hydrochlorothiazide for blood pressure. Has a pacemaker for a slow heartbeat which resolved after pacemaker placement. Denies history of heart failure or heart attack. She has no history of kidney disease. No history of diabetes. Medical History: Reviewed Medications: Reviewed Surgical History: Reviewed Family history: Reviewed Allergies: Reviewed Social History: Reviewed Code Status: Full Allergies Allergy/AdvReac Type Severity Reaction Status Date / Time meloxicam AdvReac Intermediate Swelling- Verified 04/06/24 08:11 stomach Home Medications Medication Instructions Recorded Confirmed Type ascorbic acid (vitamin C) 500 mg 500 mg PO QAM 01/11/18 04/10/24 History tablet (Vitamin C) calcium 600 mg (as 1 tab PO QAM 01/11/18 04/10/24 History carbonate)-vitamin D3 5 mcg (200 unit) capsule (Calcium 600 + D(3)) cholecalciferol (vitamin D3) 25 1,000 unit PO QPM 01/11/18 04/10/24 History mcg (1,000 unit) capsule (Vitamin D3) docusate sodium 250 mg capsule 250 mg PO BID 01/11/18 04/10/24 History (Stool Softener) multivitamin (Multiple Vitamins 1 tab PO QAM 01/11/18 04/10/24 History tablet) polyethylene glycol 3350 17 1 dose PO QAM 01/11/18 04/10/24 History gram/dose oral powder (Miralax) hydrochlorothiazide 25 mg tablet 25 mg PO QAM #90 tabs 04/18/19 04/10/24 Rx gabapentin 300 mg capsule 300 mg PO QPM 08/15/20 04/10/24 History (Neurontin) glucosamine sulf dipot 1 cap PO BID 07/20/23 04/10/24 History chlr,msm,chond 550 mg-C 30 mg-richardson 1 mg capsule (Glucosamine Chondroitin) latanoprost 0.005 % eye drops 1 drp ophthalmic (eye) PM 07/20/23 04/10/24 History peg 400-propylene glycol (PF) 0.4 1 drp ophthalmic (eye) QID 07/20/23 04/10/24 History %-0.3 % eye drops in a dropperette (Systane (PF)) acetaminophen 500 mg tablet 1,000 mg (2 x 500 mg) PO Q8 #30 08/11/23 04/10/24 Rx (Tylenol Extra Strength) tabs oxycodone 5 mg tablet 5 - 10 mg (1 - 2 x 5 mg) PO Q4H 08/11/23 04/10/24 Rx PRN pain #20 tabs aspirin 81 mg capsule 81 mg PO BID #0 caps 04/07/24 04/10/24 Rx diclofenac sodium 75 mg 75 mg PO BID Post op pain and 04/07/24 04/10/24 Rx tablet,delayed release inflammation relief 30 days #60 tabs oxycodone 5 mg tablet 5 - 10 mg (1 - 2 x 5 mg) PO Q4H 04/07/24 04/10/24 Rx PRN Post op pain relied #28 tabs Past Med/Surg History Problem List (Updated 04/10/24 @ 13:50 by Sergey Morocho MD) Perforated gastric ulcer Pneumoperitoneum of unknown etiology (Acute) Pneumoperitoneum S/P total left hip arthroplasty Osteoarthritis of left hip Paroxysmal SVT (supraventricular tachycardia) Per records Encounter for pre-operative examination Left ovarian cyst (Acute) Medical History Glaucoma Hypercholesteremia HTN (hypertension) Sick sinus syndrome Dual chamber implanted 2005, replaced [address] Irizarry/[facility] cardio Hx of supraventricular tachycardia LVH (left ventricular hypertrophy) Follows with [facility] cardio Pacemaker Dual chamber implanted 2005, replaced [address] Irizarry/[facility] cardio History of COVID-19 04/2023- mild symptoms, resolved Osteoarthritis Surgical History History of ear surgery left S/P total knee replacement right History of tooth extraction History of right inguinal hernia repair History of right cataract extraction Hx of colonoscopy Hx of hysterectomy Hx laparoscopic cholecystectomy History of lumbar fusion History of permanent cardiac pacemaker placement Implanted 2005 [employer], replaced 2014 Family History Father Coronary heart disease Mother Dementia Other No family history of adverse response to anesthesia Social History Smoking Status: Never smoker Second Hand Exposure: No; Do You Dip or Chew Tobacco: No; Hx Alcohol Use: No Hx Substance Use: No Preferred Language: Turkish Communication Ability: Effective Communication Ability Comment: very CADDO Visual Impairment: No Limitations Dude Wrangler Required: No Beliefs That Will Affect Care: None marital status: Current Living Situation: Alone Current Living Situation Comment: spouse currently in rehab facility current occupational status: retired 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 NAD. Cooperative. HEENT: Atraumatic, normocephalic. Vision and hearing grossly intact. Pulm: CTAB A&P. -wheezes, -rales, -rhonchi. Symmetrical chest rise. No increased work of breathing. No respiratory distress. Cardiac: RRR, -mrg. Radial pulses intact and symmetrical. Abdominal: Minimally tender to palpation, soft. HUSAM drain in place, serosanguinous material recently emptied for ~20cc. Ext: L hip incision well healing, no erythema/warmth/discharge/dehischence. No LE edema. Results & Data Results & Data Vital Signs (Past 12 Hours) Vital Signs Temp Pulse Pulse Resp BP Pulse Ox O2 Del Method 04/10/24 06:40 98 H 18 98 Nasal Cannula 04/10/24 05:44 105 H 18 150/83 H 90 Nasal Cannula 04/10/24 04:22 87 04/10/24 04:17 92 H 16 98 Nasal Cannula 04/10/24 04:12 36.7 C 95 H 18 150/78 H 97 Nasal Cannula O2 Flow Rate 04/10/24 06:40 3 04/10/24 05:44 4 04/10/24 04:22 04/10/24 04:17 3 04/10/24 04:12 3 PG Care Time/CCT Total # of Minutes Spent Total Time Spent with Patient: Total time spent is greater than 50% in coordination of care (as documented) at patient's floor/unit and/or counseling patient: Coding Level of Care Code 39724 INT INP/OBS CARE 75MIN Diagnoses Perforated gastric ulcer K25.5 S/P total left hip arthroplasty Z96.642 Sick sinus syndrome I49.5
[2024-04-10] MEDS ORDERED: ONDANSETRON INJ 2 MG/ML 2 ML VIAL ONE (07:46)
[2024-04-10] MEDS ORDERED: DEXAMETHASONE SOD INJ 4 MG/ML VIAL ONE (07:46)
[2024-04-10] MEDS ORDERED: ACETAMINOPHEN 1000 MG/100 ML IV IV ONE (07:51)
[2024-04-10 08:13] LABS: INR 0.9 (0.9-1.1); Prothrombin Time 10.3 Seconds (9.0-12.0)
[2024-04-10] MEDS ORDERED: ePHEDrine sulfate 50 MG/ML AMP IV PRN (08:32)
[2024-04-10] MEDS ORDERED: ATROPINE SULFATE 0.1 MG/ML 10ML SYR IV PRN (08:32)
[2024-04-10] MEDS ORDERED: HYDROmorphone INJ 1 MG/ML SYRINGE IV PRN (08:32)
[2024-04-10] MEDS: HEPARIN SOD 5,000 UNIT/0.5 ML VIAL SQ STA (08:33)
[2024-04-10] MEDS: TISSEEL FIBRIN SEALANT 10ML TOP ONE (09:40)
[2024-04-10] MEDS ORDERED: SUGAMMADEX SODIUM 200 MG/2 ML VIAL IV ONE (09:46)
[2024-04-10] MEDS: BUPIVACAINE/EPINEPHRINE 0.5% MPF 1:200,000 30 ML VIAL ONE (09:48)
--- NOTE | 2024-04-10 10:09 | Operative Report ---
PG Post Operative Report Pre & Post Diagnosis Operation Date: 04/10/24 07:00 Pre-Op Diagnosis: Pneumoperitoneum Post-Op Diagnosis: Pneumoperitoneum, perforated gastric ulcer I identified the patient and participated in the time-out.: Yes Procedure Operation Date: 04/10/24 07:00 Actual Procedures p Diagnostic Laparoscopy, repair perforated gastric ulcer, Dhaval patch, abdominal washout(Not Applicable) - Ranjit Lambert DO Surgeon Ranjit Lambert DO [employer] SHANDRA Clemente Estimated Blood Loss 25 Findings Consistent with Post-Op Diagnosis Specimens none Description of Procedure After informed consent was obtained the patient was taken to the operating room and placed in supine position. After successful intubation a nasogastric tube was placed and the abdomen was sterilely prepped and draped in usual fashion. I began with an infraumbilical incision. This was carried down through the soft tissue using cautery. Anterior fascia was opened using cautery and two #0 Vicryl stay sutures were placed. The peritoneum was entered using blunt finger penetration and a finger sweep performed. A 12 mm Elias trocar was placed and the abdomen was insufflated to 16 mmHg. Laparoscope was inserted and the abdomen examined 360 degrees. Immediately noted some succus and bile tinged fluid in the upper abdomen primarily on the right side. There was also moderate inflammation throughout the upper abdomen. I placed a left upper quadrant 5 mm trocar and a right upper quadrant 5 mm trocar under direct vision. I was able to readily identify an anterior perforated gastric ulcer. I began by suctioning irrigating out all the succus and bile. I then exchanged the one 5 mm port for a 12 mm port. I was able to primarily close the ulcer using 3-0 Polysorb in simple interrupted fashion. Once I completed this I covered the entire ulcer with Tisseel sealant. Once this was dried I then performed a Dhaval patch by using 2-0 Tycron and securing a piece of omentum over top of the ulcer and securing it to an area of normal serosa of the stomach. There was a small to moderate hiatal hernia but this was not contributing to her issue. The remainder of her anatomy was essentially normal. I thoroughly irrigated out the pelvis as well as upper abdomen until all the fluid was clear. A 10 flat Jose-Avila drain was placed into the right upper quadrant and brought out through the right upper quadrant trocar site. It was secured to the skin using 0 Vicryl. At the end the procedure there was adequate hemostasis. The trocars were all removed and the abdomen desufflated. The fascia of the camera port was closed using 0 Vicryl in [id number] fashion. Wounds were all irrigated and closed using 4-0 Monocryl. Marcaine with epinephrine was injected around them for postoperative analgesia and skin glue used as a dressing. Patient was awakened extubated and transferred to recovery in guarded condition. My nurse practitioner was present for the entire case was instrumental in helping to access the abdomen, running the camera, wound closure and dressing placement. I attest to the content of the Intraoperative Record and any orders documented therein. Any exceptions are noted below.
[2024-04-10] MEDS: ONDANSETRON INJ 2 MG/ML 2 ML VIAL IV PRN (10:13)
[2024-04-10] MEDS: fentaNYL citrate PF 100 MCG/2 ML VIAL IV PRN (10:13)
[2024-04-10 10:59] LABS: Appearance Urine Clear (Clear); Bacteria Urine Automated None Seen (None Seen); Bilirubin Urine Negative (Negative); Blood Urine Trace (Negative); Cast Urine Automated 0-2 /lpf (0-2); Color Urine Yellow; Epithelial Cell Urine Auto 0-2 /hpf (0-2); Glucose Urine UA Negative (Negative); Ketones Urine Negative (Negative); Leukocyte Esterase Urine Negative (Negative); Nitrite Urine Negative (Negative); Protein Urine Negative (Negative); Specific Gravity Urine > 1.045 (1.000-1.030); Urobilinogen Urine Negative (Negative); WBC Urine Automated 0-5 /hpf (0-5); pH Urine 6.5 (4.5-7.5)
--- NOTE | 2024-04-10 11:06 | Anesthesiology Progress Note ---
Date of Service April 10, 2024 Anesthesia Post Procedure Vital Signs Vital Signs: Temp Pulse Pulse Pulse Resp BP BP 04/10/24 11:00 86 15 119/57 L 04/10/24 10:50 93 H 14 121/66 04/10/24 10:40 92 H 12 139/63 04/10/24 10:30 93 H 10 L 151/70 H 04/10/24 10:20 89 12 152/61 H 04/10/24 10:10 98 H 21 169/75 H 04/10/24 10:02 36.7 C 100 H 18 159/91 H 04/10/24 08:23 38 C H 109 H 20 152/79 H 04/10/24 06:40 98 H 18 04/10/24 05:44 105 H 18 150/83 H 04/10/24 05:42 108 H 24 04/10/24 04:22 87 04/10/24 04:17 92 H 16 04/10/24 04:12 36.7 C 95 H 18 150/78 H Pulse Ox O2 Del Method O2 Flow Rate 04/10/24 11:00 96 Oxymask 4 04/10/24 10:50 94 Oxymask 4 04/10/24 10:40 93 Oxymask 4 04/10/24 10:30 94 Oxymask 4 04/10/24 10:20 93 Oxymask 4 04/10/24 10:10 95 Oxymask 8 04/10/24 10:02 97 Oxymask 8 04/10/24 08:23 96 Nasal Cannula 3 04/10/24 06:40 98 Nasal Cannula 3 04/10/24 05:44 90 Nasal Cannula 4 04/10/24 05:42 90 04/10/24 04:22 04/10/24 04:17 98 Nasal Cannula 3 04/10/24 04:12 97 Nasal Cannula 3 Pain Intensity Upper Abdomen: Pain Intensity: 8 Transfer of Care Handoff Completed per policy Notes Mental Status: alert / awake / arousable Patient Amnestic to Procedure: Yes Nausea / Vomiting: adequately controlled Pain: adequately controlled Airway Patency, RR, SpO2: stable & adequate BP & HR: stable & adequate Hydration State: stable & adequate Anesthetic Complications: no major complications apparent and Pt Satisfied with anesthetic care
--- NOTE | 2024-04-10 13:50 | XRay Report ---
KUB CLINICAL HISTORY: placement of NGT COMPARISON STUDY: CT of the abdomen and pelvis performed earlier today. FINDINGS: Right upper quadrant surgical drain is in place. There are postoperative findings within th e spine and a left hip arthroplasty. Incidental note is made of contrast within the collecting system s, ureters and bladder from recent contrast-enhanced CT. Tip of nasogastric tube projects over the lo wer mediastinum, likely within the intrathoracic portion of the stomach. A hiatal hernia is better de picted on prior abdominal CT. IMPRESSION: Tip of nasogastric tube projects over the lower mediastinum, likely within the intrathor acic portion of the stomach. Hiatal hernia with partially intrathoracic stomach better depicted on ab dominal CT. ACT 112: Negative or not required by law. Electronically signed by: Mike Garcia M.D. 04/10/2024 1:49 PM
[2024-04-10] MEDS ORDERED: TPN/PPN CONSULT PHARMACY PRN (14:23)
[2024-04-10] MEDS: HEPARIN SOD 5,000 UNIT/0.5 ML VIAL ONE (14:34)
[2024-04-10] MEDS: D5W AND LACTATED RINGERS 1,000 ML IV SCH (14:42)
[2024-04-10] MEDS: PANTOprazole 40 MG/10 ML SYR IV SCH (14:42)
[2024-04-10] MEDS: PIPERACILLIN/TAZOBACTAM 4.5 GM/100 ML BAG IV SCH (14:43)
[2024-04-10] MEDS: ACETAMINOPHEN 1,000 MG/100 ML VIAL IV PRN (19:43)
[2024-04-11] MEDS: MoRPHine SULFATE 4 MG/ML 1 ML CARP\\VIAL IV PRN (02:53)
--- NOTE | 2024-04-11 05:55 | Electrocardiogram Report ---
Test Reason : Blood Pressure : */* mmHG Vent. Rate : 87 BPM Atrial Rate : 87 BPM P-R Int : 146 ms QRS Dur : 84 ms QT Int : 368 ms P-R-T Axes : 30 11 26 degrees QTcB Int : 442 ms Normal sinus rhythm Normal ECG When compared with ECG of 21-Jul-2023 15:34, Premature atrial complexes are no longer Present Confirmed by Man Pool ([id number]) on 04/11/2024 5:54:49 AM Referred By: REFERRED SELF Confirmed By: Man Pool
[2024-04-11 06:39] LABS: Albumin Globulin Ratio 1.3 (0.9-2); Albumin Level 2.9 gm/dl (3.4-5.0); BUN Creatinine Ratio 28.3 (10-20); Bilirubin,Total 0.6 mg/dl (0.2-1.0); Calcium 7.8 mg/dl (8.6-10.3); Creatinine Clr Calc Pharmacy 63.9 ml/min; Globulin 2.3 gm/dl (2.5-4.0); Magnesium 1.9 mg/dl (1.7-2.4); Phosphorus 3.2 mg/dl (2.5-4.9); Potassium 3.8 mmol/L (3.5-5.1); Total Protein 5.2 gm/dl (6.0-8.3)
[2024-04-11 06:50] LABS: Basophils # (auto) 0.01 K/uL (0.00-0.20); Basophils % (auto) 0.2 %; Eosinophils # (auto) 0.32 K/uL (0.00-0.50); Eosinophils % (auto) 5.7 %; Hematocrit (blood only) 25.4 % (37.0-47.0); Hemoglobin 8.4 g/dl (12.0-16.0); Immature Granulocytes # (auto) 0.03 K/uL (0.01-0.20); Immature Granulocytes % (auto) 0.5 %; Lymphocytes # (auto) 0.63 K/uL (1.20-3.40); Lymphocytes % (auto) 11.2 %; Mean Corpuscular Hemoglobin 29.9 pg (25.0-34.0); Mean Corpuscular Hgb Conc 33.1 g/dL (32.0-36.0); Mean Corpuscular Volume 90.4 fL (80.0-100.0); Mean Platelet Volume 10.4 fL (9.4-12.4); Monocytes # (auto) 0.41 K/uL (0.11-0.59); Monocytes % (auto) 7.3 %; Neutrophils # (auto) 4.21 K/uL (1.40-6.50); Neutrophils % (auto) 75.1 %; Platelet Count 149 K/uL (130-400); RDW Coefficient of Variation 12.7 % (11.5-14.5); RDW Standard Deviation 41.9 fL (36.4-46.3); Red Blood Count 2.81 M/uL (4.20-5.40); White Blood Count 5.61 K/ul (4.8-10.8)
--- NOTE | 2024-04-11 08:47 | Surgery Progress Note ---
Date of Service April 11, 2024 Assessment & Plan (1) Perforated gastric ulcer: Plan: POD#1 laparoscopic repair of perforated gastric ulcer w/ evans patch WBC 5, Hbg 8.4 (11.3), medicine ordered recheck at noon to ensure stability . Vitals stable, on some supplemental O2 NGT with small amount of drainage. HUSAM drain 70cc serosang. Continue NGT along with strict NPO + IV pain/nausea/PPI/abx meds Planning on starting peripheral nutrition while she remains NPO Encourage OOB ambulation today at least to chair, can consider ha removal pending her ability to get in an out of bed today Likely consider UGI for leak check later this week prior to NGT removal and diet initiation As above. From my standpoint she is doing great. Minimal abdominal discomfort. Drains look good. I would still recommend starting IV nutrition. My plan would be for a contrast study prior to pulling NG tube. Will consult physical therapy while she is here particularly since she just had hip surgery. Admission and Anticipated Discharge Date Admission Date: April 10, 2024 Subjective Patient feeling well. Abdominal pain controlled. No nausea/vomiting. + flatus. Physical Exam Physical Exam: awake/alert, no distress Respiratory: normal respiratory effort Gastrointestinal (Abdomen): Inspection/Auscultation: + abdominal surgical incision (skin glue wounds c/d/i. scant drainage on HUSAM drain dressing) Percussion/Palpation: + abdomen tender (expected joann incisional discomfort) and abdomen soft HUSAM drain serosang. Results & Data Vital Signs (Past 12 Hours) Vital Signs Temp Pulse Resp BP BP Pulse Ox O2 Del Method 04/11/24 07:36 98.4 F 83 19 161/65 H 96 Nasal Cannula 04/11/24 02:47 97.9 F 87 18 160/67 H 96 Nasal Cannula 04/10/24 22:45 98.1 F 79 16 134/72 94 Nasal Cannula O2 Flow Rate 04/11/24 07:36 2.0 04/11/24 02:47 2.5 04/10/24 22:45 2.0 PG Care Time/CCT Total # of Minutes Spent Total Time Spent with Patient: Total time spent is greater than 50% in coordination of care (as documented) at patient's floor/unit and/or counseling patient: Coding Level of Care Code 78173 Post Operative Follow-Up Diagnoses Perforated gastric ulcer K25.5
[2024-04-11 12:23] LABS: Hemoglobin 9.1 g/dl (12.0-16.0)
--- NOTE | 2024-04-11 12:31 | Pharmacy Report ---
Pharmacy Initial PN Consult Nt - Date of Service April 11, 2024 - Scope Pharmacy has been consulted on this date to manage parenteral nutrition orders and order appropriate labs. As part of the Nutrition Support Team Guidelines, pharmacy will work in conjunction with dietary when determining the patients caloric needs. - Subjective * The patient is a 84 year old Female admitted on 04/10/24 for PERFORATED GASTRIC ULCER * Patient is s/p Dhaval patch and abdominal washout on 04/10 * Patient is to receive parenteral nutrition per request of Hospitalist and Surgical Team * No prior documentation of weight loss or malnutrition in last few weeks/months. Uncertain of clinical trajectory for enteral feeding following this procedure. * Pertinent PMHx: * recent L MORALES * SSS s/p pacemaker * HTN * OA * lumbar spinal fusion - Objective Vascular Access: * Patient currently has a 20G peripheral line in hand * Peripheral line was confirmed by IV Team to be acceptable for PPN use on this date. Height & Weight (Last Documented) Height 5 ft Weight 62.2 kg Diet Order(s) 04/10/24 04:06 NPO Intake & Ouput (24hrs) 04/10/24 04/11/24 04/12/24 06:59 06:59 06:59 Intake Total 1100 / 1100 3406.250 / 3406.250 100 / 100 Output Total 1550 / 1550 70 / 70 Balance 1100 / 1100 1856.250 / 1856.250 30 / 30 Selected Laboratory Results 04/11/24 05:35 Sodium 136 Potassium 3.8 Chloride 101 Carbon Dioxide 30 Anion Gap 5 BUN 15 Creatinine 0.53 L BUN/Creatinine Ratio 28.3 H Glucose 110 H Calcium 7.8 L Phosphorus 3.2 Magnesium 1.9 Total Bilirubin 0.6 AST 34 ALT 27 Alkaline Phosphatase [address] - Initial Nutrition Assessment Start: 04/10/24 16:07 Freq: Status: Active Protocol: Document 04/10/24 16:07 WN (Rec: 04/10/24 16:25 WN [id number]) - Assessment & Plan Assessment: * Appreciate dietitians recommendations for macronutrients. * Hospitalist contacted to determine if IV fluid restrictions applicable to this patient today. Per communication will provide ~1700-1800mL volume from PPN (AA + Dex + Lipids) over next 24 hrs. * Patient has HUSAM drain and NGT in place. * rey reviewed this AM, no significant abnormalities requiring repletion * Patient does not appear to have risk factors for refeeding syndrome Plan: * For Day #1 of PPN administration, the following will be ordered: * Macronutrients: * Amino Acids: 61 grams/day * Dextrose: 72 grams/day * Lipids: 50 grams/day * Micronutrients: * TPN electrolytes: 40 mL/day - Contains 35 mEq Na, 20 mEq K, 4.5 mEq Ca, 5 mEq Mg, 35 mEq Cl, 29.5 mEq Acetate per 20 mL * Sodium phosphate: 0 mMol/day * Sodium chloride: 0 mEq/day * Sodium acetate: 0 mEq/day * Potassium phosphate: 15 mMol/day * Potassium chloride: 0 mEq/day * Potassium acetate: 0 mEq/day * Magnesium sulfate: 0 mEq/day * Calcium gluconate: 0 mEq/day * Multivitamins: 10 mL/day * Trace elements: 1 mL/day * Thiamine: 100 mg/day * Folic Acid: 0 mg/day * Total volume of 1497mL (AA + Dex) will be infused over 24 hours + + 250mL (Lipids) infused over 6 hours and will provide 989kcal/day (~16kcal/kg/day) * Patient is on PPN which has a maximum mOsm/L of 900. Final osmolarity of current solution is 841 mOsm/L. * Labs will be ordered per PN protocol. * Pharmacy will follow and adjust PN orders on a daily basis. Thank you!
--- NOTE | 2024-04-11 14:25 | Hospitalist Progress Note ---
Date of Service April 11, 2024 Assessment & Plan (1) Perforated gastric ulcer: Plan: 84-year-old female with recent left hip arthroplasty who presents with a gastric perforation likely due to stress, recent surgery, and NSAID use. Taken for emergent repair and doing well subsequently. Patient was not septic or toxic on admission, and is continued on Zosyn. Gastric ulcer perforation in setting of recent surgery, stress, NSAID use, aspirin use Surgery consulted. Taken emergently for diagnostic laparoscopy. Doing well postop, planning contrast study 04/13. PPI IV BID S/p repaired perforated ulcer with Dhaval patch and abdominal washout 04/10/[address] N.p.o. will need to be n.p.o. for several days while she heals, PPN consultation placed. If not able to progress after ~72 hours then switch to TPN. PPN orders swapped for D5 LR and continued at a rate of 70 cc/h IV labetalol if needed for blood pressure control, currently normotensive postoperative Remains with good pain control, passing flatus, and normal HUSAM drain output 04/11. Continued on Zosyn Recent left hip total arthroplasty 05/07 due to OA Stable. Patient does show nondisplaced left pubic rami fracture age- indeterminate Surgical site intact, no acute change in management Aspirin held while NPO. DVT PPx held immediately perioperative Sick sinus syndrome s/p pacemaker placement Troponin normal Admitting EKG normal sinus rhythm, QTc 442. No territorial ST/T wave changes Subsegmental consolidation/peribronchial thickening No respiratory symptoms Denies fever/chills/cough/shortness of breath Low suspicion for pulmonary infection, would be covered by Zosyn and MRSA screen is negative DVT prophylaxis: No increased output from HUSAM drain, no signs of bleeding. Heparin subcu BID added, if no bleeding/stable transition to Lovenox qd 04/12 Diet: N.p.o., PPN CODE STATUS: Full code Disposition: PCU (2) S/P total left hip arthroplasty: (3) Sick sinus syndrome: Admission and Anticipated Discharge Date Admission Date: April 10, 2024 Lynn Carter is seen at the bedside. Has some mild pain in her incision site but feels this is improving compared to yesterday. No questions or concerns at time of bedside assessment. Discussed plan of care and course, patient no additional questions. Has been passing gas but has not had a bowel movement. Physical Exam Physical Exam: General: A&Ox3. NAD. Cooperative. HEENT: Atraumatic, normocephalic. Vision and hearing grossly intact. Pulm: Diminished but clear. symmetrical chest rise. No increased work of breathing. No respiratory distress. Cardiac: RRR, -mrg. Radial pulses intact and symmetrical. Abdominal: Minimally tender to palpation, soft. HUSAM drain in place, serosanguinous material recently emptied for ~70 cc overnight Results & Data Results & Data Vital Signs (Past 12 Hours) Vital Signs Temp Pulse Pulse Resp BP BP Pulse Ox 04/11/24 11:56 36.8 C 89 18 153/69 H 94 04/11/24 08:00 76 04/11/24 07:36 36.9 C 83 19 161/65 H 96 04/11/24 02:47 36.6 C 87 18 160/67 H 96 O2 Del Method O2 Flow Rate 04/11/24 11:56 Nasal Cannula 2.0 04/11/24 08:00 04/11/24 07:36 Nasal Cannula 2.0 04/11/24 02:47 Nasal Cannula 2.5 PG Care Time/CCT Total # of Minutes Spent Total Time Spent with Patient: Total time spent is greater than 50% in coordination of care (as documented) at patient's floor/unit and/or counseling patient: Coding Level of Care Code 76872 SUB INP/OBS CARE 3/50MIN Diagnoses Perforated gastric ulcer K25.5 S/P total left hip arthroplasty Z96.642 Sick sinus syndrome I49.5
[2024-04-11] MEDS: PERIPHERAL TPN IV SCH (15:38)
[2024-04-11] MEDS: [UNRECOGNIZED DRUG - OTHER] IV SCH (15:38)
[2024-04-11] MEDS: CLINOLIPID 20% IV FAT EMULSION 250 ML IV SCH (15:39)
[2024-04-11] MEDS: LABETALOL HCL IV 5 MG/ML 20ML IV PRN (17:12)
[2024-04-11] MEDS: STOP CLINOLIPID SCH (21:11)
[2024-04-12 06:47] LABS: Basophils # (auto) 0.02 K/uL (0.00-0.20); Basophils % (auto) 0.3 %; Eosinophils % (auto) 6.9 %; Hematocrit (blood only) 29.3 % (37.0-47.0); Hemoglobin 9.7 g/dl (12.0-16.0); Immature Granulocytes # (auto) 0.05 K/uL (0.01-0.20); Immature Granulocytes % (auto) 0.9 %; Lymphocytes # (auto) 0.49 K/uL (1.20-3.40); Lymphocytes % (auto) 8.5 %; Mean Corpuscular Hemoglobin 29.5 pg (25.0-34.0); Mean Corpuscular Hgb Conc 33.1 g/dL (32.0-36.0); Mean Corpuscular Volume 89.1 fL (80.0-100.0); Monocytes # (auto) 0.46 K/uL (0.11-0.59); Neutrophils # (auto) 4.35 K/uL (1.40-6.50); Neutrophils % (auto) 75.4 %; Platelet Count 182 K/uL (130-400); RDW Coefficient of Variation 12.2 % (11.5-14.5); RDW Standard Deviation 39.4 fL (36.4-46.3); Red Blood Count 3.29 M/uL (4.20-5.40); White Blood Count 5.77 K/ul (4.8-10.8)
[2024-04-12 07:14] LABS: Albumin Level 3.2 gm/dl (3.4-5.0); Bilirubin,Total 0.7 mg/dl (0.2-1.0); Calcium 8.8 mg/dl (8.6-10.3); Magnesium 2.1 mg/dl (1.7-2.4); Potassium 4.1 mmol/L (3.5-5.1)
[2024-04-12 07:20] LABS: Albumin Globulin Ratio 1.2 (0.9-2); BUN Creatinine Ratio 25.5 (10-20); Creatinine Clr Calc Pharmacy 60.8 ml/min; Globulin 2.7 gm/dl (2.5-4.0); Total Protein 5.9 gm/dl (6.0-8.3)
--- NOTE | 2024-04-12 07:29 | Hospitalist Progress Note ---
Date of Service April 12, 2024 Assessment & Plan (1) Perforated gastric ulcer: Plan: 84-year-old female with recent left hip arthroplasty who presents with a gastric perforation. Taken for emergent repair and doing well subsequently. Patient was not septic or toxic on admission, and is continued on Zosyn. Gastric ulcer perforation in setting of recent surgery, stress, NSAID use, aspirin use Surgery s/p repaired perforated ulcer with Dhaval patch and abdominal washout 04/10/2024 PPI IV BID NGT in place N.p.o. , PPN continues, did have extravasation now has u/s guided iv IV labetalol if needed for blood pressure control, currently normotensive postoperative Remains with good pain control, passing flatus, and normal HUSAM drain output 04/11. Continued on Zosyn Recent left hip total arthroplasty 05/07 due to OA Stable. Patient does show nondisplaced left pubic rami fracture age- indeterminate Surgical site intact, no acute change in management Aspirin held while NPO. DVT PPx held immediately perioperative Sick sinus syndrome s/p pacemaker placement -NSR on admission Subsegmental consolidation/peribronchial thickening No respiratory symptoms Denies fever/chills/cough/shortness of breath Low suspicion for pulmonary infection, would be covered by Zosyn and MRSA screen is negative DVT prophylaxis: No increased output from HUSAM drain, no signs of bleeding. Heparin subcu BID added, if no bleeding/stable transition to Lovenox qd 04/12 Diet: N.p.o., PPN CODE STATUS: Full code (2) S/P total left hip arthroplasty: (3) Sick sinus syndrome: Admission and Anticipated Discharge Date Admission Date: April 10, 2024 Subjective pt is doing well, sitting in chair, did have some flatus did have right hand infiltrate with ppn, however is not discrete so as not defined area to inject hyaluronase, will follow clinically Physical Exam Physical Exam: Pt is in a good mood little abdominal pain until move or with exam right hand swollen not with concern for compartment syndrome as can sense and move Results & Data Results & Data Vital Signs (Past 12 Hours) Vital Signs Temp Pulse Pulse Resp BP BP Pulse Ox 04/12/24 07:21 98.2 F 82 17 169/82 H 97 04/12/24 04:17 98.2 F 70 18 169/84 H 98 04/12/24 01:41 83 166/79 H 04/11/24 23:52 96 H 183/85 H 04/11/24 23:44 98.2 F 96 H 17 183/85 H 93 04/11/24 21:42 O2 Del Method O2 Flow Rate 04/12/24 07:21 Nasal Cannula 2 04/12/24 04:17 Nasal Cannula 04/12/24 01:41 04/11/24 23:52 04/11/24 23:44 Nasal Cannula 04/11/24 21:42 Nasal Cannula 1.5 Laboratory Results review cbc review chemistry PG Care Time/CCT Total # of Minutes Spent Total Time Spent with Patient: Total time spent is greater than 50% in coordination of care (as documented) at patient's floor/unit and/or counseling patient: Coding Level of Care Code 88710 SUB INP/OBS CARE 3/50MIN Diagnoses Perforated gastric ulcer K25.5 S/P total left hip arthroplasty Z96.642 Sick sinus syndrome I49.5
--- NOTE | 2024-04-12 09:33 | Surgery Progress Note ---
Date of Service April 12, 2024 Assessment & Plan (1) Perforated gastric ulcer: Plan: POD#2 laparoscopic repair of perforated gastric ulcer w/ evans patch WBC wnl HUSAM drain serosang. Encourage OOB ambulation to chair, may remove ha from surgical standpoint continue NGT , NPO ,IV pain/nausea/PPI/abx meds Poss. UGI for leak check later this week prior to NGT removal and diet initiation as above. doing great. will check UGI tomorrow. still wont be able to truly eat for several more days...rec continue PPN no acute post op issues. Admission and Anticipated Discharge Date Admission Date: April 10, 2024 Subjective pt denies abd pain Review of Systems Constitutional: no fever and no chills Cardiovascular: no chest pain Gastrointestinal: no abdominal pain, no nausea and no vomiting Physical Exam Constitutional: no acute distress Cardiovascular: Rate/Rhythm: regular rate Gastrointestinal (Abdomen): Inspection/Auscultation: + abdominal surgical incision (CDI ) and + abdominal surgical drain present; abdomen not distended Results & Data Vital Signs (Past 12 Hours) Vital Signs Temp Pulse Pulse Resp BP BP Pulse Ox 04/12/24 09:01 04/12/24 07:26 79 04/12/24 07:21 98.2 F 82 17 169/82 H 97 04/12/24 04:17 98.2 F 70 18 169/84 H 98 04/12/24 01:41 83 166/79 H 04/11/24 23:52 96 H 183/85 H 04/11/24 23:44 98.2 F 96 H 17 183/85 H 93 04/11/24 21:42 O2 Del Method O2 Flow Rate 04/12/24 09:01 Nasal Cannula 1 04/12/24 07:26 04/12/24 07:21 Nasal Cannula 2 04/12/24 04:17 Nasal Cannula 04/12/24 01:41 04/11/24 23:52 04/11/24 23:44 Nasal Cannula 04/11/24 21:42 Nasal Cannula 1.5 PG Care Time/CCT Total # of Minutes Spent Total Time Spent with Patient: Total time spent is greater than 50% in coordination of care (as documented) at patient's floor/unit and/or counseling patient: Coding Level of Care Code 29186 Post Operative Follow-Up Diagnoses Perforated gastric ulcer K25.5
[2024-04-12] MEDS: PERIPHERAL TPN IV SCH (15:57)
[2024-04-12] MEDS: CLINOLIPID 20% IV FAT EMULSION 250 ML IV SCH (15:57)
[2024-04-12] MEDS: [UNRECOGNIZED DRUG - OTHER] IV SCH (15:57)
[2024-04-12] MEDS: STOP CLINOLIPID SCH (22:12)
[2024-04-13 06:47] LABS: Basophils # (auto) 0.03 K/uL (0.00-0.20); Basophils % (auto) 0.5 %; Eosinophils # (auto) 0.45 K/uL (0.00-0.50); Eosinophils % (auto) 7.1 %; Hematocrit (blood only) 30.8 % (37.0-47.0); Hemoglobin 10.5 g/dl (12.0-16.0); Immature Granulocytes # (auto) 0.06 K/uL (0.01-0.20); Immature Granulocytes % (auto) 0.9 %; Lymphocytes # (auto) 0.65 K/uL (1.20-3.40); Lymphocytes % (auto) 10.2 %; Mean Corpuscular Hemoglobin 29.8 pg (25.0-34.0); Mean Corpuscular Hgb Conc 34.1 g/dL (32.0-36.0); Mean Corpuscular Volume 87.5 fL (80.0-100.0); Mean Platelet Volume 9.6 fL (9.4-12.4); Monocytes # (auto) 0.52 K/uL (0.11-0.59); Monocytes % (auto) 8.2 %; Neutrophils # (auto) 4.66 K/uL (1.40-6.50); Neutrophils % (auto) 73.1 %; Platelet Count 221 K/uL (130-400); RDW Standard Deviation 38.8 fL (36.4-46.3); Red Blood Count 3.52 M/uL (4.20-5.40); White Blood Count 6.37 K/ul (4.8-10.8)
[2024-04-13 07:09] LABS: Albumin Globulin Ratio 1.2 (0.9-2); Albumin Level 3.4 gm/dl (3.4-5.0); Bilirubin,Total 0.7 mg/dl (0.2-1.0); Calcium 8.9 mg/dl (8.6-10.3); Creatinine Clr Calc Pharmacy 66.6 ml/min; Globulin 2.9 gm/dl (2.5-4.0); Magnesium 2.2 mg/dl (1.7-2.4); Phosphorus 4.2 mg/dl (2.5-4.9); Total Protein 6.3 gm/dl (6.0-8.3)
--- NOTE | 2024-04-13 07:14 | Hospitalist Progress Note ---
Date of Service April 13, 2024 Assessment & Plan (1) Perforated gastric ulcer: Plan: 84-year-old female with recent left hip arthroplasty who presents with a gastric perforation. Taken for emergent repair and doing well subsequently. Patient was not septic or toxic on admission, and is continued on Zosyn. Gastric ulcer perforation in setting of recent surgery(elective left hip replacement), stress, NSAID use, aspirin use Surgery s/p repaired perforated ulcer with Dhaval patch and abdominal washout 04/10/2024 PPI BID [address]GT in place N.p.o. , PPN continues, await results of barium swallow, may consider removing ngt soon, predict ppn thru 04/14 IV labetalol if needed for blood pressure control, currently normotensive postoperative Remains with good pain control, passing flatus, and normal HUSAM drain output 04/11. Continued on Zosyn Recent left hip total arthroplasty 05/07 due to OA Stable. Patient does show nondisplaced left pubic rami fracture age- indeterminate Surgical site intact, no acute change in management Aspirin held while NPO. DVT PPx held immediately perioperative, scd Sick sinus syndrome s/p pacemaker placement -NSR on admission Subsegmental consolidation/peribronchial thickening No respiratory symptoms Denies fever/chills/cough/shortness of breath Low suspicion for pulmonary infection, would be covered by Zosyn and MRSA screen is negative DVT prophylaxis:scd, consider heparin if advance diet and no concern for additional procedure CODE STATUS: Full code (2) S/P total left hip arthroplasty: (3) Sick sinus syndrome: Admission and Anticipated Discharge Date Admission Date: April 10, 2024 Subjective pt feels improved, right hand is now not swollen and no tissue injury seen awaiting results of barium swallow Physical Exam Physical Exam: Pt is in a good mood little abdominal pain right hand swollen no longer swollen lungs are clear Results & Data Results & Data Vital Signs (Past 12 Hours) Vital Signs Temp Pulse Pulse Resp BP Pulse Ox O2 Del Method 04/13/24 03:53 98.8 F 93 H 18 164/92 H 97 Room Air 04/12/24 23:22 83 04/12/24 23:16 98.2 F 77 18 177/94 H 96 Nasal Cannula 04/12/24 22:20 Nasal Cannula O2 Flow Rate 04/13/24 03:53 04/12/24 23:22 04/12/24 23:16 2 04/12/24 22:20 1 Laboratory Results review cbc review chemistry PG Care Time/CCT Total # of Minutes Spent Total Time Spent with Patient: Total time spent is greater than 50% in coordination of care (as documented) at patient's floor/unit and/or counseling patient: Coding Level of Care Code 34362 SUB INP/OBS CARE 3/50MIN Diagnoses Perforated gastric ulcer K25.5 S/P total left hip arthroplasty Z96.642 Sick sinus syndrome I49.5
--- NOTE | 2024-04-13 08:13 | Surgery Progress Note ---
Date of Service April 13, 2024 Assessment & Plan (1) Perforated gastric ulcer: Plan: POD#3 laparoscopic repair of perforated gastric ulcer w/ evans patch WBC wnl HUSAM drain serosang. Encourage OOB ambulation to chair, Pt for UGI series this AM to check for leak , continue NGT , NPO, PPN ,IV pain/nausea/PPI/abx meds Will follow up with results of UGI with further recs. as above. doing well. ugi today...if negative for leak will pull ngt and start sips of clears would continue PPI another 48 hours or so until better po intake. Admission and Anticipated Discharge Date Admission Date: April 10, 2024 Subjective pt denies abd pain, n/v Review of Systems Constitutional: no fever and no chills Gastrointestinal: no abdominal pain, no nausea and no vomiting Psychiatric: no confusion Physical Exam Constitutional: no acute distress Cardiovascular: Rate/Rhythm: regular rate Gastrointestinal (Abdomen): Inspection/Auscultation: + abdominal surgical incision (CDI ) and + abdominal surgical drain present; abdomen not distended Results & Data Vital Signs (Past 12 Hours) Vital Signs Temp Pulse Pulse Resp BP Pulse Ox O2 Del Method 04/13/24 08:00 82 04/13/24 07:29 98.6 F 80 16 164/83 H 97 Nasal Cannula 04/13/24 03:53 98.8 F 93 H 18 164/92 H 97 Room Air 04/12/24 23:22 83 04/12/24 23:16 98.2 F 77 18 177/94 H 96 Nasal Cannula 04/12/24 22:20 Nasal Cannula O2 Flow Rate 04/13/24 08:00 04/13/24 07:29 2 04/13/24 03:53 04/12/24 23:22 04/12/24 23:16 2 04/12/24 22:20 1 Results CBC w Diff Results: RBC 3.52 M/uL (4.20-5.40) L 04/13/24 WBC 6.37 K/ul (4.8-10.8) 04/13/24 Hgb 10.5 g/dl (12.0-16.0) L 04/13/24 Hct 30.8 % (37.0-47.0) L 04/13/24 MCV 87.5 fL (80.0-100.0) 04/13/24 MCH 29.8 pg (25.0-34.0) 04/13/24 MCHC 34.1 g/dL (32.0-36.0) 04/13/24 RDW Standard Deviation 38.8 fL (36.4-46.3) 04/13/24 RDW Coefficient of Variation 12.0 % (11.5-14.5) 04/13/24 Plt Count 221 K/uL (130-400) 04/13/24 MPV 9.6 fL (9.4-12.4) 04/13/24 Neutrophils (%) (Auto) 73.1 % 04/13/24 Lymphocytes (%) (Auto) 10.2 % 04/13/24 Monocytes # (Auto) 0.52 K/uL (0.11-0.59) 04/13/24 Eosinophils # (Auto) 0.45 K/uL (0.00-0.50) 04/13/24 Immature Granulocyte % (Auto) 0.9 % 04/13/24 Neutrophils # (Auto) 4.66 K/uL (1.40-6.50) 04/13/24 Lymphocytes # (Auto) 0.65 K/uL (1.20-3.40) L 04/13/24 Monocytes # (Auto) 0.52 K/uL (0.11-0.59) 04/13/24 Eosinophils # (Auto) 0.45 K/uL (0.00-0.50) 04/13/24 Basophils # (Auto) 0.03 K/uL (0.00-0.20) 04/13/24 Immature Granulocyte # (Auto) 0.06 K/uL (0.01-0.20) 5 PG Care Time/CCT Total # of Minutes Spent Total Time Spent with Patient: Total time spent is greater than 50% in coordination of care (as documented) at patient's floor/unit and/or counseling patient: Coding Level of Care Code 79037 Post Operative Follow-Up Diagnoses Perforated gastric ulcer K25.5
--- NOTE | 2024-04-13 14:19 | Fluoroscopy Report ---
SINGLE CONTRAST UPPER GI SERIES CLINICAL HISTORY: s/p repair of gastric perf, rule out leak COMPARISON STUDY: ET of the abdomen and pelvis and KUB April 10, 2024. FLUOROSCOPY TIME: 1.30 minutes FLUOROSCOPY IMAGES: 9 Ka,r: 30.5 mGy PROCEDURE AND FINDINGS: Lag Screwer fluoroscopic image was obtained. Tip of nasogastric tube is within the proximal stomach. Pacer leads and spinal hardware were incidentally noted. A hiatal hernia was noted. Single contrast upper GI series was performed. The patient ingested Optiray 320. Gastric emptying wa s mildly delayed. There was opacification of the stomach and duodenum. No extraluminal contrast was i dentified to suggest a leak. The caliber of the opacified jejunum was normal. IMPRESSION: No contrast extravasation from the stomach to suggest leak. ACT 112: Negative or not required by law. Electronically signed by: Mike Garcia M.D. 04/13/2024 2:17 PM
[2024-04-13] MEDS: [UNRECOGNIZED DRUG - OTHER] IV SCH (16:03)
[2024-04-13] MEDS: PERIPHERAL TPN IV SCH (16:03)
[2024-04-13] MEDS: CLINOLIPID 20% IV FAT EMULSION 250 ML IV SCH (16:04)
[2024-04-14 06:57] LABS: BUN Creatinine Ratio 45.3 (10-20); Calcium 8.7 mg/dl (8.6-10.3); Creatinine Clr Calc Pharmacy 61.1 ml/min; Magnesium 2.2 mg/dl (1.7-2.4); Phosphorus 3.8 mg/dl (2.5-4.9); Potassium 4.1 mmol/L (3.5-5.1)
--- NOTE | 2024-04-14 07:44 | Surgery Progress Note ---
Date of Service April 14, 2024 Assessment & Plan (1) Perforated gastric ulcer: Plan: POD#4 laparoscopic repair of perforated gastric ulcer w/ evans patch UGI performed yesterday revealed no evidence of leak. NGT was removed and she was started on clears patient feels well overall, tolerating clears, pain controlled. no nausea/vomiting. + bowel function MARY drain remains serosang. abdomen soft. mild discomfort around mary drain site. incisions c/d/i Would maintain on clear liquids for now. She is ordered for PPN PT/OT on board, continue to encourage ambulation and pulmonary toilet as above. doing great. will d/c mary and start fulls. doing very well. d/c planning Admission and Anticipated Discharge Date Admission Date: April 10, 2024 Subjective Patient feels well. Happy her NGT is out. Tolerating clear liquids without nausea/vomiting. She is having + bowel function. Reports her pain is under control. Physical Exam Physical Exam: awake/alert, no distress Respiratory: normal respiratory effort Gastrointestinal (Abdomen): Inspection/Auscultation: + abdominal surgical incision (c/d/i with skin glue) and + abdominal surgical drain present (serosang, 20cc documented) Percussion/Palpation: + abdomen tender (mild discomfort mostly around MARY drain site) and abdomen soft Results & Data Vital Signs (Past 12 Hours) Vital Signs Temp Pulse Pulse Resp BP Pulse Ox O2 Del Method 04/14/24 03:40 98.6 F 89 18 145/79 H 95 Room Air 04/14/24 00:00 84 04/13/24 22:41 97.5 F L 89 16 143/79 H 94 Room Air 04/13/24 20:01 98.2 F 85 16 137/75 93 Room Air PG Care Time/CCT Total # of Minutes Spent Total Time Spent with Patient: Total time spent is greater than 50% in coordination of care (as documented) at patient's floor/unit and/or counseling patient: Coding Level of Care Code 05952 Post Operative Follow-Up Diagnoses Perforated gastric ulcer K25.5
--- NOTE | 2024-04-14 11:26 | Hospitalist Progress Note ---
Date of Service April 14, 2024 Assessment & Plan (1) Perforated gastric ulcer: Plan: 84-year-old female with recent left hip arthroplasty who presents with a gastric perforation. Taken for emergent repair and doing well subsequently. Patient was not septic or toxic on admission, and is continued on Zosyn. Gastric ulcer perforation in setting of recent surgery(elective left hip replacement), stress, NSAID use, aspirin use Surgery s/p repaired perforated ulcer with Dhaval patch and abdominal washout 04/10/2024 PPI BID NGT has been removed Now tolerating sips of liquid N.p.o. , PPN continues, await results of barium swallow, may consider removing ngt soon, predict ppn thru 04/14 Remains with good pain control, passing flatus, and normal HUSAM drain output 04/11. Continued on Zosyn Recent left hip total arthroplasty 05/07 due to OA Stable. Patient does show nondisplaced left pubic rami fracture age- indeterminate Surgical site intact, no acute change in management Aspirin Sick sinus syndrome s/p pacemaker placement -NSR on admission Subsegmental consolidation/peribronchial thickening No respiratory symptoms Denies fever/chills/cough/shortness of breath Low suspicion for pulmonary infection, would be covered by Zosyn and MRSA screen is negative DVT prophylaxis:scd, consider heparin if advance diet and no concern for additional procedure CODE STATUS: Full code (2) S/P total left hip arthroplasty: (3) Sick sinus syndrome: Admission and Anticipated Discharge Date Admission Date: April 10, 2024 Subjective patient seen and examined, NG tube has been removed, tolerating sips of clear liquid Review of Systems Review of Systems: The patient is awake, alert and oriented 3, well developed and well nourished, normocephalic and atraumatic, lying in bed and in no acute distress. HEENT--PERRL, EOMI, mucous membranes and oropharynx mildly dry Neck--supple. No JVD. No bruits. Thyroid normal, trachea midline, no adenopathy. Heart--normal S1 and S2. No murmurs, rubs or gallops. Lungs--clear bilaterally, no respiratory distress, no accessory muscle use. Abdomen--normal bowel sounds and soft. Extremities--no cyanosis or clubbing. No edema. Dermatologic--normal skin turgor, normal color, no abnormal lymph nodes, no rash. Neurologic--cranial nerves II through XII grossly intact. Rheumatologic--normal range of motion. Psychiatric--normal affect. Results & Data Results & Data Vital Signs (Past 12 Hours) Vital Signs Temp Pulse Pulse Resp BP Pulse Ox O2 Del Method 04/14/24 11:20 98.2 F 87 19 130/77 97 Room Air 04/14/24 08:23 98.4 F 86 19 160/79 H 96 Room Air 04/14/24 03:40 98.6 F 89 18 145/79 H 95 Room Air 04/14/24 00:00 84 PG Care Time/CCT Total # of Minutes Spent Total Time Spent with Patient: Total time spent is greater than 50% in coordination of care (as documented) at patient's floor/unit and/or counseling patient: Coding Level of Care Code 89146 SUB INP/OBS CARE 2/35MIN Diagnoses Perforated gastric ulcer K25.5 S/P total left hip arthroplasty Z96.642 Sick sinus syndrome I49.5 Time Spent (min) 35
--- NOTE | 2024-04-14 11:42 | Orthopedic Progress Note ---
Date of Service April 14, 2024 Assessment & Plan (1) S/P total left hip arthroplasty: Plan: Total hip precautions reviewed PT/OT Weightbearing as tolerated with walker assistance Abduction pillow use x 6 weeks Ice with easy wrap Keep Silverlon dressing in place DVT prophylaxis with KENNETH stockings. Pain controlled p.o. medication Follow-up with [facility]ics as previously scheduled With questions contact our clinic at [phone] Admission and Anticipated Discharge Date Admission Date: April 10, 2024 Subjective This 84-year-old female is 8 days status post left total hip arthroplasty with Dr. Parul joiner. Patient states that her hip is doing very well. She was admitted and had surgery for perforated gastric ulcer this past Wednesday. She is currently under general surgery service. She states she is much improved from earlier this week. She states that she is working with PT and OT in regards to her left hip. Review of Systems Review of Systems: All systems reviewed & are unremarkable except as noted in Subjective Physical Exam Physical Exam: Left hip: She has no discomfort with logroll testing. Silverlon is clean dry intact and left in place. Patient is able to easily perform right straight leg raise test and actively dorsi and plantarflex foot without issue. Quad strength is 4 out of 5. Patient has no discomfort with passive hip flexion near 90 degrees or with passive internal or external hip rotation. She is neurovascularly intact. Results & Data Vital Signs (Past 12 Hours) Vital Signs Temp Pulse Pulse Resp BP Pulse Ox O2 Del Method 04/14/24 11:20 36.8 C 87 19 130/77 97 Room Air 04/14/24 08:23 36.9 C 86 19 160/79 H 96 Room Air 04/14/24 03:40 37.0 C 89 18 145/79 H 95 Room Air 04/14/24 00:00 84 Diagnostic Findings Laboratory Results WBC 6.37 K/ul (4.8-10.8) 04/13/24 05:49 RBC 3.52 M/uL (4.20-5.40) L 04/13/24 05:49 Hgb 10.5 g/dl (12.0-16.0) L 04/13/24 05:49 Hct 30.8 % (37.0-47.0) L 04/13/24 05:49 MCV 87.5 fL (80.0-100.0) 04/13/24 05:49 MCH 29.8 pg (25.0-34.0) 04/13/24 05:49 MCHC 34.1 g/dL (32.0-36.0) 04/13/24 05:49 RDW Std Deviation 38.8 fL (36.4-46.3) 04/13/24 05:49 RDW Coeff of Erika 12.0 % (11.5-14.5) 04/13/24 05:49 Plt Count 221 K/uL (130-400) 04/13/24 05:49 MPV 9.6 fL (9.4-12.4) 04/13/24 05:49 Immature Gran % (Auto) 0.9 % 04/13/24 05:49 Neut % (Auto) 73.1 % 04/13/24 05:49 Lymph % (Auto) 10.2 % 04/13/24 05:49 [place] % (Auto) 8.2 % 04/13/24 05:49 Eos % (Auto) 7.1 % 04/13/24 05:49 Baso % (Auto) 0.5 % 04/13/24 05:49 Neut # (Auto) 4.66 K/uL (1.40-6.50) 04/13/24 05:49 Lymph # (Auto) 0.65 K/uL (1.20-3.40) L 04/13/24 05:49 [place] # (Auto) 0.52 K/uL (0.11-0.59) 04/13/24 05:49 Eos # (Auto) 0.45 K/uL (0.00-0.50) 04/13/24 05:49 Baso # (Auto) 0.03 K/uL (0.00-0.20) 04/13/24 05:49 Immature Gran # (Auto) 0.06 K/uL (0.01-0.20) 04/13/24 05:49 PT 10.3 Seconds (9.0-12.0) 04/10/24 07:14 INR 0.9 (0.9-1.1) 04/10/24 07:14 Sodium 134 mmol/L (136-145) L 04/14/24 06:01 Potassium 4.1 mmol/L (3.5-5.1) 04/14/24 06:01 Chloride 100 mmol/L (98-107) 04/14/24 06:01 Carbon Dioxide 27 mmol/L (21-32) 04/14/24 06:01 Anion Gap 7 (3-11) 04/14/24 06:01 BUN 24 mg/dl (6-23) H 04/14/24 06:01 Creatinine 0.53 mg/dl (0.6-1.2) L 04/14/24 06:01 Est Cr Clr Drug Dosing 61.1 ml/min 04/14/24 06:01 eGFR 90.57 04/14/24 06:01 BUN/Creatinine Ratio 45.3 (10-20) H 04/14/24 06:01 Glucose 116 mg/dl (70-99(Fasting)) H 04/14/24 06:01 POC Glucose 99 mg/dl (70-99) 04/14/24 11:20 Calcium 8.7 mg/dl (8.6-10.3) 04/14/24 06:01 Phosphorus 3.8 mg/dl (2.5-4.9) 04/14/24 06:01 Magnesium 2.2 mg/dl (1.7-2.4) 04/14/24 06:01 Total Bilirubin 0.7 mg/dl (0.2-1.0) 04/13/24 05:49 AST 18 U/L (13-39) 04/13/24 05:49 ALT 17 U/L (7-52) 04/13/24 05:49 Alkaline Phosphatase 148 U/L (34-104) H 04/13/24 05:49 Troponin I High Sens 4.8 pg/ml (0-14) 04/10/24 06:00 Total Protein 6.3 gm/dl (6.0-8.3) 04/13/24 05:49 Albumin 3.4 gm/dl (3.4-5.0) 04/13/24 05:49 Globulin 2.9 gm/dl (2.5-4.0) 04/13/24 05:49 Albumin/Globulin Ratio 1.2 (0.9-2) 04/13/24 05:49 Triglycerides 76 mg/dl (0-150) 04/11/24 05:35 Lipase 29 U/L (11-82) 04/10/24 04:06 Urine Color Yellow 04/10/24 10:45 Urine Appearance Clear (Clear) 04/10/24 10:45 Urine pH 6.5 (4.5-7.5) 04/10/24 10:45 Ur Specific [place] > 1.045 (1.000-1.030) H 04/10/24 10:45 Urine Protein Negative (Negative) 04/10/24 10:45 Urine Glucose (UA) Negative (Negative) 04/10/24 10:45 Urine Ketones Negative (Negative) 04/10/24 10:45 Urine Blood Trace (Negative) H 04/10/24 10:45 Urine Nitrite Negative (Negative) 04/10/24 10:45 Urine Bilirubin Negative (Negative) 04/10/24 10:45 Urine Urobilinogen Negative (Negative) 04/10/24 10:45 Ur Leukocyte Esterase Negative (Negative) 04/10/24 10:45 Urine WBC (Auto) 0-5 /hpf (0-5) 04/10/24 10:45 Urine RBC (Auto) 6-10 /hpf (0-2) H 04/10/24 10:45 U Hyaline Cast (Auto) 0-2 /lpf (0-2) 04/10/24 10:45 U Epithel Cells (Auto) 0-2 /hpf (0-2) 04/10/24 10:45 Urine Bacteria (Auto) None Seen (None Seen) 04/10/24 10:45 Nasal Screen MRSA (PCR) Negative (Negative) 04/10/24 10:45 Impressions Abdomen/Pelvis CT 04/10/24 04:15 EXAM: CT abd pelvis IV con only CLINICAL HISTORY: UPPER ABD PAIN, 118 ML OPTIRAY 320 TECHNIQUE: CT of the abdomen and pelvis was performed with and without contrast (118ml Optiray 320), with the following protocol: axial images with, and reconstructed coronal and sagittal images. One of the following dose reduction techniques was utilized for this exam: Automated exposure control, adjustment of the mA and/or kV according to patient size, and use of iterative reconstruction. COMPARISON: CT abd pelvis 06/11/2014. XR pelvis 04/06/2024. FINDINGS: Visualized lower chest: Moderate hiatal hernia. Containing part of the gastric body. Surrounded by mild free fluid. Interval increase. Basilar subsegmental consolidations Abdomen: Liver: Few hypodense small hepatic cysts. The largest measured about 2.7 x 2.2 cm, seen in the left liver lobe. Which showed peripheral nodular enhancement. Unchanged. Normal in size, shape, and density. Hepatic vasculature and biliary ducts are unremarkable. Gallbladder and Biliary System: Evidence of cholecystectomy. Please correlate with the prior surgical history. The common bile duct is normal in caliber, without dilation. Pancreas: Pancreatic head, body, and tail are visualized and appear normal in size and density. No pancreatic masses or calcifications were noted. The pancreatic duct is not dilated. Spleen: Normal in size, shape, and density. No splenic lesions or masses were identified. Kidneys and Adrenal Glands: Both kidneys are normal in size, shape, and position. Cortical thickness is within normal limits. No renal calculi or hydronephrosis. Adrenal glands are unremarkable, with no evidence of masses or hyperplasia. Pelvis: Urinary Bladder: Unremarkable. The uterus could not be visualized. Likely due to a hysterectomy. Please correlate with the prior surgical history. New finding. Peritoneal and Retroperitoneal Structures: Multiple air foci seen in the abdominal cavity suggestive of pneumoperitoneum. New finding. Mild pelvic free fluid. New finding. No lymphadenopathy was noted. Bowel: Mild colonic fecal loading. The visualized bowel loops are normal in caliber and appearance. No evidence of bowel obstruction or wall thickening. The appendix could not be identified. No signs of inflammatory changes in the right iliac region. Bones and Soft Tissues: Evidence of nondisplaced fractures involving left pubic rami and the both sacral norbert (indeterminate age). Callus formation is noted. Unchanged compared to prior XR pelvis dated on 04/06/2024. Small collection seen adjacent to the left pubic rami with small air foci. This could represent a hematoma. Left-sided inguinal hernia containing a segment of bowel loops. No signs of strangulation. Interval increase. Degenerative changes of the visualized skeleton. Unchanged. Thoracolumbar scoliosis with convexity to the left side. Unchanged. Left hip prosthesis. Unchanged. Fixation screws and plate are seen through L3-L5 vertebral bodies. Unchanged. IMPRESSION: 1. Moderate hiatal hernia. Surrounded by a mild amount of free fluid. New finding. The possibility of complicated hiatal hernia could not be excluded. Need clinical correlation. 2. Evidence of pneumoperitoneum and mild pelvic free fluid. This could be due to recent abdominal intervention or perforated viscus. Need clinical correlation. New finding. 3. Evidence of nondisplaced fractures seen involving left pubic rami and sacral ala. Indeterminate age. Unchanged compared to prior XR pelvis dated on 04/06/2024. 4. Mild colonic fecal loading. 5. Multiple hypodense hepatic cysts. On top of differential diagnoses are hepatic hemangiomas. Unchanged. 6. Left-sided inguinal hernia. No signs of strangulation. Interval increase. 7. Possible small hematoma in the left inguinal region. New finding. Electronically signed by Slava Jimenez 04-10-2024 06:38 AM Chest CTA 04/10/24 04:15 EXAM: CT angio chest PE protocol CLINICAL HISTORY: Evaluate for pulmonary embolism TECHNIQUE: Contiguous 3.[address] angiographic images of the chest were acquired with the administration of intravenous contrast 118 ML OPTIRAY 320. Coronal and sagittal reconstructions were obtained. contrast was administered for post-contrast images. One of these 3D techniques was utilized: Maximum Intensity Pixel (MIP), 3D Reconstructed Images, Volume Rendered Images, Surface Shaded Rendering. One of the following dose reduction techniques was utilized for this exam: Automated exposure control, adjustment of the mA and/or kV according to patient size, and use of iterative reconstruction. COMPARISON: with the prior 04/26/2018 study. FINDINGS: Wide diaphragmatic hiatus with para esophageal hernia harboring the gastric fundus and part of the body exerting some compression manifestation upon the adjacent left basal lung extent with subsegmental atelectasis .. A stable inserted Pacmaker is seen. Aorta: The thoracic aorta is normal in caliber. No evidence of aneurysm, dissection, or significant atherosclerotic changes. The aortic arch and descending thoracic aorta are unremarkable. Pulmonary Arteries: Pulmonary arteries are normal in size and opacification. No evidence of pulmonary embolism. No stenosis or filling defects. Superior Vena Cava (SVC) and Inferior Vena Cava (IVC): Normal opacification and caliber. No evidence of thrombus or obstruction. Coronary Arteries: Coronary arteries are well-opacified. No significant stenosis or atherosclerotic changes. Mediastinum: No mediastinal mass or lymphadenopathy. Normal appearance of the thymus. Heart: Normal size and morphology of the heart. No pericardial effusion. Lungs: Lungs are clear with no evidence of consolidation, nodules, or masses. Minimal left-side pleural reaction is seen. Left lower lung lobe small air-filled cyst is seen. Bones: Moderate spondylosis of the thoracic spine with mild right-side scoliosis found. No fractures or lytic/sclerotic lesions of the visualized bony structures. Normal alignment and bone density. Metallic density in right paravertebral soft tissue in lower thoracic spine region. Need clinical correlation. Soft Tissues: Normal appearance of the visualized soft tissues. No abnormal masses or fluid collections. Mild perihepatic fluid collection with air under the diaphragm is seen, please correlate with abdominal study. IMPRESSION: 1. No CTPA signs of pulmonary embolism 2. Bilateral basal subsegmental consolidations with peribronchial thickening. Need clinical correlation. 3. Large hiatus hernia harboring the gastric fundus and part of the body 4. Metallic density in right paravertebral soft tissue in lower thoracic spine region. Need clinical correlation. 5. Mild perihepatic fluid collection with air under the diaphragm. Correlate with abdominal imaging Electronically signed by Slava Jimenez 04-10-2024 06:27 AM KUB X-Ray 04/10/24 10:35 KUB CLINICAL HISTORY: placement of NGT COMPARISON STUDY: CT of the abdomen and pelvis performed earlier today. FINDINGS: Right upper quadrant surgical drain is in place. There are postoperative findings within the spine and a left hip arthroplasty. Incidental note is made of contrast within the collecting systems, ureters and bladder from recent contrast-enhanced CT. Tip of nasogastric tube projects over the lower mediastinum, likely within the intrathoracic portion of the stomach. A hiatal hernia is better depicted on prior abdominal CT. IMPRESSION: Tip of nasogastric tube projects over the lower mediastinum, likely within the intrathoracic portion of the stomach. Hiatal hernia with partially intrathoracic stomach better depicted on abdominal CT. ACT 112: Negative or not required by law. Electronically signed by: Mike Garcia M.D. 04/10/2024 1:49 PM Upper GI Series 04/13/24 07:00 SINGLE CONTRAST UPPER GI SERIES CLINICAL HISTORY: s/p repair of gastric perf, rule out leak COMPARISON STUDY: ET of the abdomen and pelvis and KUB April 10, 2024. FLUOROSCOPY TIME: 1.30 minutes FLUOROSCOPY IMAGES: 9 Ka,r: 30.5 mGy PROCEDURE AND FINDINGS: Surveillance Systems Analyst fluoroscopic image was obtained. Tip of nasogastric tube is within the proximal stomach. Pacer leads and spinal hardware were incidentally noted. A hiatal hernia was noted. Single contrast upper GI series was performed. The patient ingested Optiray 320. Gastric emptying was mildly delayed. There was opacification of the stomach and duodenum. No extraluminal contrast was identified to suggest a leak. The caliber of the opacified jejunum was normal. IMPRESSION: No contrast extravasation from the stomach to suggest leak. ACT 112: Negative or not required by law. Electronically signed by: Mike Garcia M.D. 04/13/2024 2:17 PM
[2024-04-14] MEDS: MoRPHine SULFATE 2 MG/ML CARP IV PRN (12:38)
--- NOTE | 2024-04-15 05:48 | Surgery Progress Note ---
Date of Service April 15, 2024 Assessment & Plan (1) Perforated gastric ulcer: Plan: POD#5 laparoscopic repair of perforated gastric ulcer w/ evans patch -UGI performed with no evidence of leak, NGT removed and patient has been able to advance her diet to full liquids without any worsening abdominal pain, N/V. -Will plan to advance diet to low fiber/bland diet today and see how she does today. -PT/OT on board, continue to encourage ambulation and pulmonary toilet Admission and Anticipated Discharge Date Admission Date: April 10, 2024 Supervising Physician Co-Signing Physician Notes Patient seen and examined, labs and imaging reviewed, agree with above. Status post laparoscopic Evans patch for perforated ulcer. Doing well, tolerating bland/low fiber diet for lunch. No pain. She is anticipating discharge tomorrow. On exam she is afebrile stable vitals. Her abdomen is soft, incisions without infection. Appropriately tender to palpation. Okay to DC from general surgery standpoint. Avoid NSAIDs. Continue PPI. Follow-up with Dr. Lambert as an outpatient. Will likely need endoscopy at some point. Subjective Patient doing well this morning Tolerating full liquids without abdominal pain, N/V Pain well controlled at this time. HUSAM drain removed yesterday Physical Exam Constitutional: WD/WN, vitals as above Respiratory: normal respiratory effort, lungs clear to auscultation Gastrointestinal (Abdomen): Abdomen soft, nondistended, appropriate TTP over incision. Surgical sites are c/d/i with skin glue in place. Previous drain site with dressing in place. Skin: no rashes, warm and dry Results & Data Vital Signs (Past 12 Hours) Vital Signs Temp Pulse Pulse Resp BP Pulse Ox O2 Del Method 04/15/24 03:03 36.9 C 78 16 110/64 95 Room Air 04/14/24 23:33 37.1 C 78 16 137/73 95 Room Air 04/14/24 23:10 76 04/14/24 19:20 36.9 C 86 16 123/65 94 Room Air PG Care Time/CCT Total # of Minutes Spent Total Time Spent with Patient: Total time spent is greater than 50% in coordination of care (as documented) at patient's floor/unit and/or counseling patient: Coding Level of Care Code 71279 Post Operative Follow-Up Diagnoses Perforated gastric ulcer K25.5
[2024-04-15 06:55] LABS: BUN Creatinine Ratio 30.2 (10-20); Calcium 8.6 mg/dl (8.6-10.3); Creatinine Clr Calc Pharmacy 51.6 ml/min; Phosphorus 3.7 mg/dl (2.5-4.9); Potassium 3.8 mmol/L (3.5-5.1)
--- NOTE | 2024-04-15 11:50 | Hospitalist Progress Note ---
Date of Service April 15, 2024 Assessment & Plan (1) Perforated gastric ulcer: Plan: 84-year-old female with recent left hip arthroplasty who presents with a gastric perforation. Taken for emergent repair and doing well subsequently. Patient was not septic or toxic on admission, and is continued on Zosyn. Gastric ulcer perforation in setting of recent surgery(elective left hip replacement), stress, NSAID use, aspirin use Surgery s/p repaired perforated ulcer with Dhaval patch and abdominal washout 04/10/2024 PPI BID NGT has been removed Now tolerating sips of liquid PPN has been discontinued will advance diet Recent left hip total arthroplasty 05/07 due to OA Stable. Patient does show nondisplaced left pubic rami fracture age- indeterminate Surgical site intact, no acute change in management Aspirin Sick sinus syndrome s/p pacemaker placement -NSR on admission Subsegmental consolidation/peribronchial thickening No respiratory symptoms Denies fever/chills/cough/shortness of breath Low suspicion for pulmonary infection, would be covered by Zosyn and MRSA screen is negative DVT prophylaxis:scd, consider heparin if advance diet and no concern for additional procedure CODE STATUS: Full code may need rehab or home PT (2) S/P total left hip arthroplasty: (3) Sick sinus syndrome: Admission and Anticipated Discharge Date Admission Date: April 10, 2024 Subjective patient seen and examined, tolerating liquid diet, HUSAM drain removed Review of Systems Review of Systems: All systems reviewed are negative, apart from the ones contained in the history. Physical Exam Physical Exam: The patient is awake, alert and oriented 3, well developed and well nourished, normocephalic and atraumatic, lying in bed and in no acute distress. HEENT--PERRL, EOMI, mucous membranes and oropharynx mildly dry Neck--supple. No JVD. No bruits. Thyroid normal, trachea midline, no adenopathy. Heart--normal S1 and S2. No murmurs, rubs or gallops. Lungs--clear bilaterally, no respiratory distress, no accessory muscle use. Abdomen--normal bowel sounds and soft. Extremities--no cyanosis or clubbing. No edema. Dermatologic--normal skin turgor, normal color, no abnormal lymph nodes, no rash. Neurologic--cranial nerves II through XII grossly intact. Rheumatologic--normal range of motion. Psychiatric--normal affect. Results & Data Results & Data Vital Signs (Past 12 Hours) Vital Signs Temp Pulse Resp BP Pulse Ox O2 Del Method 04/15/24 10:46 98.6 F 80 18 126/75 94 Room Air 04/15/24 07:59 98.4 F 82 19 138/75 95 Room Air 04/15/24 03:03 98.4 F 78 16 110/64 95 Room Air PG Care Time/CCT Total # of Minutes Spent Total Time Spent with Patient: Total time spent is greater than 50% in coordination of care (as documented) at patient's floor/unit and/or counseling patient: Coding Level of Care Code 32926 SUB INP/OBS CARE 2/35MIN Diagnoses Perforated gastric ulcer K25.5 S/P total left hip arthroplasty Z96.642 Sick sinus syndrome I49.5 Time Spent (min) 35
--- NOTE | 2024-04-16 05:48 | Surgery Progress Note ---
Date of Service April 16, 2024 Assessment & Plan (1) Perforated gastric ulcer: Plan: POD#6 laparoscopic repair of perforated gastric ulcer w/ evans patch -UGI performed with no evidence of leak, patient's diet has slowly been advanced over the last few days and she is now tolerating a low fiber diet without any issues. -PT/OT on board, continue to encourage ambulation and pulmonary toilet -From a surgical standpoint the patient is doing well and would be ok for D/C today. I did discuss post-operative instructions with the patient this morning including to avoid NSAIDS, continue PPI, low fiber diet, no heavy lifting, no soaking incisions, and she will follow up with Dr. Lambert for her post-op check up in roughly 2 weeks. Admission and Anticipated Discharge Date Admission Date: April 10, 2024 Supervising Physician Co-Signing Physician Notes Patient seen and examined, labs reviewed, agree with above. Status post laparoscopic Evans patch for perforated ulcer. Doing well, tolerating bland/low fiber diet. No pain. On exam she is afebrile stable vitals. Her abdomen is soft, incisions without infection. Appropriately tender to palpation. Okay to DC from general surgery standpoint. Avoid NSAIDs. Continue PPI. Follow-up with Dr. Lambert as an outpatient. Will likely need endoscopy at some point. Subjective Patient feeling well this morning, no complaints Pain well controlled Started on low fiber diet yesterday afternoon which she has been able to tolerate without any issues Afebrile, VSS, denies CP or SOB Physical Exam Constitutional: WD/WN, vitals as above Respiratory: normal respiratory effort, lungs clear to auscultation Gastrointestinal (Abdomen): abdomen soft, nondistended, nontender to palpation. Incisions are c/d/i without any overlying signs of infection Skin: no rashes, warm and dry Results & Data Vital Signs (Past 12 Hours) Vital Signs Temp Pulse Resp BP Pulse Ox O2 Del Method 04/16/24 02:23 36.9 C 75 16 123/69 95 Room Air 04/15/24 23:09 36.9 C 83 16 119/63 95 Room Air 04/15/24 19:19 37.0 C 82 16 116/68 95 Room Air PG Care Time/CCT Total # of Minutes Spent Total Time Spent with Patient: Total time spent is greater than 50% in coordination of care (as documented) at patient's floor/unit and/or counseling patient: Coding Level of Care Code 31728 Post Operative Follow-Up Diagnoses Perforated gastric ulcer K25.5
[2024-04-16 06:55] LABS: BUN Creatinine Ratio 30.1 (10-20); Calcium 8.7 mg/dl (8.6-10.3); Creatinine Clr Calc Pharmacy 44.6 ml/min; Phosphorus 3.6 mg/dl (2.5-4.9); Potassium 3.7 mmol/L (3.5-5.1)
[2024-04-16 07:53] VITALS: RESP 19; TEMP 97.9; O2SAT 96
--- NOTE | 2024-04-16 10:41 | Discharge Summary ---
Date of Service April 16, 2024 Admission HPI Per Admitting Provider 84-year-old female with past medical history of hypertension, lumbar fusion, OA, spinal stenosis, paroxysmal SVT, sick sinus syndrome s/p pacemaker placement stable at last follow-up who presented to the ER with sudden onset abdominal pain/epigastric pain/chest pain which awoken her from sleep. On ER evaluation she was mildly tachycardic, had no leukocytosis, creatinine was normal, and troponin was normal. CTA of the chest showed no signs of PE, subsegmental consolidations peribronchial thickening, metallic density in right paravertebral soft tissue lower spine, mild perihepatic fluid collection under the diaphragm. Abdominal CT showed moderate hiatal hernia surrounded by mild amount of free fluid new suspicious for complicated hiatal hernia, evidence of pneumoperitoneum with mild pelvic free fluid suspicious for perforated viscus, nondisplaced fractures of left pubic rami of indeterminate age, left-sided inguinal hernia without evidence of strangulation, and left inguinal possible small hematoma. Surgery was contacted emergently for pneumoperitoneum and patient was emergently scheduled for diagnostic laparoscopy, possible EGD. History of recent hip replacement Patient has a history of recent left hip total arthroplasty 04/06/2024 due to OA. Has taken NSAIDs for discomfort. Suspect in the setting of both operative stress and NSAID use patient with progressive gastric ulcer and subsequent p erforation leading to perforated viscus by history. Patient was taken emergently to surgery Preop History: No blood thinner use No prior anesthesia reactions No alcohol/tobacco use/illicit drug use No DM - NO CHF +NSAIDs Seen at the bedside in the PACU following emergent surgery. She reports that she is recovering well from her hip surgery has been using d iclofenac tablets daily in addition to gel. Also uses oxycodone for pain. She reports that she felt normal the preceding few days and has not had any GI bleeding and has not had bright red blood per rectum/melena. She was awoken today with sudden onset of severe abdominal pain. This pain has resolved at time of PACU assessment. She denies fever chills or sweats. Denies chest pain/chest pressure. She reports that she has no real medical problems. Does take hydrochlorothiazide for blood pressure. Has a pacemaker for a slow heartbeat which resolved after pacemaker placement. Denies history of heart failure or heart attack. She has no history of kidney disease. No history of diabetes. Medical History: Reviewed Medications: Reviewed Surgical History: Reviewed Family history: Reviewed Allergies: Reviewed Social History: Reviewed Code Status: Full Admission Exam (Per Admitting) Constitutional The patient is awake, alert and oriented 3, well developed and well nourished, normocephalic and atraumatic, lying in bed and in no acute distress. HEENT--PERRL, EOMI, mucous membranes and oropharynx mildly dry Neck--supple. No JVD. No bruits. Thyroid normal, trachea midline, no adenopathy. Heart--normal S1 and S2. No murmurs, rubs or gallops. Lungs--clear bilaterally, no respiratory distress, no accessory muscle use. Abdomen--normal bowel sounds and soft. Extremities--no cyanosis or clubbing. No edema. Dermatologic--normal skin turgor, normal color, no abnormal lymph nodes, no rash. Neurologic--cranial nerves II through XII grossly intact. Rheumatologic--normal range of motion. Psychiatric--normal affect. Discharge Data Consultations 04/10/24 06:51 Consult General Surgery Routine 04/10/24 07:46 ED Decision to Admit Stat Procedures Performed Operation Date: 04/10/24 07:00 Actual Procedures p Diagnostic Laparoscopy, repair perforated gastric ulcer, Dhaval patch, abdominal washout(Not Applicable) - Ranjit Lambert, DO Hospital Course (1) Perforated gastric ulcer: 84-year-old female with recent left hip arthroplasty who presents with a gastric perforation. Taken for emergent repair and doing well subsequently. Patient was not septic or toxic on admission, and is continued on Zosyn. Gastric ulcer perforation in setting of recent surgery(elective left hip replacement), stress, NSAID use, aspirin use Surgery s/p repaired perforated ulcer with Dhaval patch and abdominal washout 04/10/2024 PPI BID NGT has been removed Now tolerating sips of liquid PPN has been discontinued will advance diet Recent left hip total arthroplasty 05/07 due to OA Stable. Patient does show nondisplaced left pubic rami fracture age-indeterminate Surgical site intact, no acute change in management Aspirin Sick sinus syndrome s/p pacemaker placement -NSR on admission Subsegmental consolidation/peribronchial thickening No respiratory symptoms Denies fever/chills/cough/shortness of breath Low suspicion for pulmonary infection, would be covered by Zosyn and MRSA screen is negative DVT prophylaxis:scd, consider heparin if advance diet and no concern for additional procedure CODE STATUS: Full code d/c home (2) S/P total left hip arthroplasty: (3) Sick sinus syndrome: Coding Level of Care Code 91215 INP/OBS DISCH >30 MIN Diagnoses Perforated gastric ulcer K25.5 S/P total left hip arthroplasty Z96.642 Sick sinus syndrome I49.5 Time Spent (min) 35
[2024-04-16 11:20] VITALS: BP 177/78; PULSE 78
== END 2024-04-16 12:25 | disposition home or self-care (01) | DRG 327 ==
LOC: ED 04:04 → PACUINP 07:57 → SUATTDRO 07:57 → 2E 13:57